=== PATIENT | female | born 1930 | race Caucasian/White ===

== ENCOUNTER → 2016-04-11 | Outpatient (CLI) | payer MEDICARE, OTHER ==
--- NOTE | 2016-04-11 10:56 | CT ---
Study: CT of the Lumbar Spine. Indication: INTERVERTEBRAL DISC DISPLACEMENT Technique: Axial CT images of the lumbar spine acquired without intravenous contrast. Coronal and sagittal reformats performed. Comparison: None. Findings: Lumbar vertebral body height maintained without acute fracture. Levoscoliosis centered at L3-L4. Level by level analysis as follows: L1-L2: Mild to moderate right lateral disc space height loss with trace right lateral listhesis L1 on L2. 4 mm left eccentric disc osteophyte complex with moderate right and mild left facet arthrosis. Indentation ventral thecal sac with mild spinal canal narrowing, mid sagittal thecal sac diameter 9 mm. Mild bilateral lateral recess narrowing, right greater than left. Moderate bilateral neural foraminal narrowing. L2-L3: Severe right lateral disc space height loss with trace right lateral listhesis L2 on L3. 5 mm disc osteophyte complex. Severe right and moderate left facet arthrosis. Indentation ventral thecal sac with mild spinal canal narrowing, mid sagittal thecal sac diameter 9 mm. Moderate bilateral recess narrowing. Moderate bilateral neural foraminal narrowing, left greater than right. L3-L4: Severe right lateral disc space height loss with ex vacuo disc phenomenon and grade 1 left lateral listhesis of L3 on L4. Significant right lateral endplate sclerosis. Grade 1 degenerative anterolisthesis severe bilateral facet arthrosis. 7 mm disc uncovering/ osteophyte complex with severe right and moderate to severe left neural foraminal narrowing. Moderate ligament flavum buckling. Severe spinal canal narrowing, mid sagittal thecal sac diameter 4.4 mm. L4-L5: Mild to moderate disc space height loss with partial ossification of the disc. Trace anterolisthesis. Severe bilateral facet arthrosis. Moderate ligament flavum buckling. 4 mm disc osteophyte complex. Mild to moderate spinal canal narrowing, mid sagittal thecal sac diameter 7.5 mm. Moderate bilateral neural foraminal narrowing. L5-S1: Severe left lateral disc space height loss and ex vacuo disc phenomenon with a 5.5 mm left eccentric disc osteophyte complex. Severe bilateral facet arthrosis. Moderate to severe left and mild right neural foraminal narrowing. Indentation ventral thecal sac without spinal canal narrowing. Atherosclerosis aorta. IVC filter noted. Impression: Pronounced multilevel lumbar disc disease with changes most pronounced at L3-L4 where there is severe spinal canal narrowing in addition to severe right and moderate to severe left neural foraminal narrowing. Additional findings as above. Electronically signed by: Garry Reeder MD 04/11/2016 10:54
== END ==
LOC: CT 10:18
PROVIDERS: ATTEND Family Medicine
DX: M51.27 Other intervertebral disc displacement, lumbosacral region (principal)

== ENCOUNTER 2016-08-08 10:26 | Emergency (ER) | payer MEDICARE, OTHER ==
[2016-08-08 11:07] VITALS: BP 130/74; TEMP 98; O2SAT 98
[2016-08-08] MEDS ORDERED: IPRATROPIUM/ALBUTEROL 3 ML VIAL NEB ONE (11:23)
--- NOTE | 2016-08-08 11:36 | RAD ---
EXAM DESCRIPTION: Chest,2 Views CLINICAL HISTORY: 85 years,Female,cough diaphoresis COMPARISON: July 10, 2015 FINDINGS: There are no consolidations. No effusions. No pneumothoraces. No nodules. Bony elements unremarkable for age. Surgical clips right upper quadrant and an IVC filter seen IMPRESSION: Unremarkable chest for age stable Electronically signed by: Marco Gleason MD 08/08/2016 11:36 AM CDT
--- NOTE | 2016-08-08 11:44 | ED.PDOC ---
History of Present Illness - General Chief Complaint: Respiratory Problem Stated Complaint: shortness of breath and sweats for x 1 week Time Seen by Provider: 08/08/16 10:40 Source: patient Exam Limitations: no limitations - History of Present Illness Initial Comments: the patient is an 85-year-old female presenting to the emergency room secondary to cough and mild shortness of breath for the last week.. The patient has had a productive sputum. no chest pain. the patient has already completeda course of azithromycin. she has had 3 nights of diaphoresis Timing/Duration: 1 week Severity: moderate Improving Factors: nothing Worsening Factors: nothing Associated Symptoms: cough, fever/chills Allergies/Adverse Reactions: Allergies Codeine Allergy (Intermediate, Verified 08/08/16 11:04) Penicillins Allergy (Intermediate, Verified 08/08/16 11:04) Hives Home Medications: Ambulatory Orders Ascorbic Acid [Vitamin C] 1,000 mg PO DAILY 07/10/15 Aspirin [Aspirin EC] 81 mg PO DAILY 07/10/15 Cholecalciferol [Vitamin D] 1,000 unit PO DAILY 07/10/15 Magnesium 500 mg PO DAILY 07/10/15 Potassium Chloride [Micro-K] 10 meq PO DAILYBK 07/10/15 Triamcinolone 0.1% Oint [Kenalog 0.1% Ointment] 1 applic TOP BID 07/10/15 Triamterene & Hydrochlorothiaz [Triamterene/Hydrochloroth 37.5-25 mg] 0.5 tab PO DAILY 07/10/15 Nitrofurantoin Monohydrate Mac [Macrobid] 100 mg PO BID #12 cap 07/13/15 Rivaroxaban [Xarelto] 15 mg PO BID #40 tab 07/13/15 levoFLOXacin [Levaquin] 500 mg PO DAILY #5 tab 08/08/16 predniSONE [Prednisone] 20 mg PO DAILY #3 tab 08/08/16 Review of Systems - Review of Systems Constitutional: States: fever, malaise EENTM: States: no symptoms reported Respiratory: States: cough, short of breath - mild Cardiology: States: no symptoms reported Gastrointestinal/Abdominal: States: no symptoms reported Genitourinary: States: no symptoms reported Musculoskeletal: States: no symptoms reported Skin: States: no symptoms reported Neurological: States: no symptoms reported Endocrine: States: excessive sweating All other Systems: No Change from Baseline Past Medical History (General) - Patient Medical History Hx Seizures: No Hx Stroke: No Hx Dementia: No Hx Asthma: No Hx of COPD: No Hx Cardiac Disorders: Yes Hx Congestive Heart Failure: Yes Hx Pacemaker: No Hx Hypertension: Yes Hx Thyroid Disease: No Hx Diabetes: No Hx Gastroesophageal Reflux: No Hx Renal Disease: No Hx Cancer: No Hx of HIV: No Hx Hepatitis C: No Hx MRSA: No - Vaccination History Hx Tetanus, Diphtheria Vaccination: Yes Hx Influenza Vaccination: Yes Hx Pneumococcal Vaccination: Yes Immunizations Up to Date: Yes - Social History Hx Tobacco Use: No Hx Chewing Tobacco Use: No Hx Alcohol Use: No Hx Substance Use: No Hx Substance Use Treatment: No Hx Depression: No Feels Threatened In Home Enviroment: No Feels Threatened In a Relationship: No Hx Physical Abuse: No Hx Emotional Abuse: No Hx Suspected Abuse: No - Activities of Daily Living Hospice Agency (if applicable):: None - Female History Patient is a Female of Child Bearing Age (10 -59 yrs old): No Patient : No Family Medical History - Family History Mother Family History: No Known Living Status: Father Family History: No Known Living Status: Physical Exam - Physical Exam General Appearance: Alert, Comfortable, No apparent distress Eye Exam: bilateral normal Ears, Nose, Throat: hearing grossly normal, normal ENT inspection, normal pharynx Neck: non-tender, full range of motion, supple, normal inspection Respiratory: chest non-tender, no respiratory distress, no accessory muscle use , rhonchi - coarse bilaterally Cardiovascular/Chest: normal peripheral pulses, regular rate, rhythm, no edema Peripheral Pulses: radial,right: 2+, radial,left: 2+, dorsalis pedis,right: 2+, dorsalis pedis,left: 2+ Gastrointestinal/Abdominal: non tender, soft Rectal Exam: deferred Back Exam: normal inspection, no CVA tenderness, no vertebral tenderness Extremity: normal range of motion, non-tender, normal inspection, no pedal edema , normal capillary refill Neurologic: alert, normal mood/affect, oriented x 3 Skin Exam: normal color Comments: Vital Signs - 24 hr 08/08/16 08/08/16 11:04 11:07 Temperature 98 F Pulse Rate [ 74 Left Radial] Respiratory 20 20 Rate Blood Pressure 130/74 [Left Arm] O2 Sat by Pulse 98 Oximetry Progress - Progress Progress: 08/08/16 11:46 the patient is a 85-year-old female presenting with what is most consistent with a persistent bronchitis. She has completed a course of azithromycin. Chest x-ray and lab work are reassuring. She is oxygenating well and not in respiratory distress. She will be placed on oral prednisone for 3 days and Levaquin for 5 days. She needs to follow-up with her primary care doctor later this week. ER warnings are given for any worsening. - Results/Orders Results/Orders: Laboratory Tests 08/08/16 08/08/16 08/08/16 11:00 11:00 11:00 WBC 5.0 RBC 4.60 Hgb 14.4 Hct 43.4 MCV 94.4 MCH 31.4 H MCHC 33.2 RDW 13.3 Plt Count 210 MPV 8.1 Absolute Neuts (auto) 2.50 Absolute Lymphs (auto) 1.80 Absolute Monos (auto) 0.50 Absolute Eos (auto) 0.20 Absolute Basos (auto) 0.00 Neutrophils % 50.7 Lymphocytes % 35.2 Monocytes % 9.4 H Eosinophils % 4.2 Basophils % 0.5 D-Dimer, Quantitative < 230 Sodium 140 Potassium 3.8 Chloride 109 Carbon Dioxide 25 Anion Gap 9.8 L BUN 31 H Creatinine 1.16 BUN/Creatinine Ratio 26.7 H Random Glucose 104 Serum Osmolality 286.2 Calcium 9.5 Total Bilirubin 0.7 AST 18 ALT 12 Alkaline Phosphatase 61 Creatine Kinase 88 CK-MB (CK-2) 0.9 CK-MB (CK-2) % Not Reportable Troponin I < 0.02 B-Natriuretic Peptide 24.5 Serum Total Protein 7.0 Albumin 3.8 Globulin 3.2 Albumin/Globulin Ratio 1.2 chest x-ray appears benign. EKG shows normal sinus rhythm. No acute ST segment changes concerning for ischemia. No definitive QT prolongation. Departure - Departure Clinical Impression: Bronchitis Disposition: Discharge to Home or Self Care Condition: Fair Departure Forms: ED Discharge - Pt. Copy, Patient Portal Self Enrollment Instructions: DI for Acute Bronchitis Diet: regular diet Activity: increase activity as tolerated Referrals: Angel Contreras MD [Primary Care Provider] - 1-5 Days Prescriptions: levoFLOXacin [Levaquin] 500 mg PO DAILY #5 tab predniSONE [Prednisone] 20 mg PO DAILY #3 tab Home Medications: Ambulatory Orders Ascorbic Acid [Vitamin C] 1,000 mg PO DAILY 07/10/15 Aspirin [Aspirin EC] 81 mg PO DAILY 07/10/15 Cholecalciferol [Vitamin D] 1,000 unit PO DAILY 07/10/15 Magnesium 500 mg PO DAILY 07/10/15 Potassium Chloride [Micro-K] 10 meq PO DAILYBK 07/10/15 Triamcinolone 0.1% Oint [Kenalog 0.1% Ointment] 1 applic TOP BID 07/10/15 Triamterene & Hydrochlorothiaz [Triamterene/Hydrochloroth 37.5-25 mg] 0.5 tab PO DAILY 07/10/15 Nitrofurantoin Monohydrate Mac [Macrobid] 100 mg PO BID #12 cap 07/13/15 Rivaroxaban [Xarelto] 15 mg PO BID #40 tab 07/13/15 levoFLOXacin [Levaquin] 500 mg PO DAILY #5 tab 08/08/16 predniSONE [Prednisone] 20 mg PO DAILY #3 tab 08/08/16 Additional Instructions: the patient is a 85-year-old female presenting with what is most consistent with a persistent bronchitis. She has completed a course of azithromycin. Chest x-ray and lab work are reassuring. She is oxygenating well and not in respiratory distress. She will be placed on oral prednisone for 3 days and Levaquin for 5 days. She needs to follow-up with her primary care doctor later this week. Obviously, if she is not improving, then additional workup may be warranted. Blood culture was performed today. ER warnings are given for any worsening.
== END 2016-08-08 12:00 | disposition home or self-care (01) ==
LOC: ER 10:26
DX: J40 Bronchitis, not specified as acute or chronic (principal); I11.0 Hypertensive heart disease with heart failure; I50.9 Heart failure, unspecified; Z88.6 Allergy status to analgesic agent; Z88.0 Allergy status to penicillin; Z79.82 Long term (current) use of aspirin; Z79.899 Other long term (current) drug therapy
CPT/HCPCS: 36415; 71020; 80053; 82550; 82553; 83880; 84484; 85025; 85379; 87040; 87502; 93005; 94640; J7620

== ENCOUNTER 2016-08-21 15:48 | Emergency (ER) | payer MEDICARE, OTHER ==
[2016-08-21 16:07] VITALS: O2SAT 94
--- NOTE | 2016-08-21 16:24 | ED.PDOC ---
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 Denies LOC. She twisted her foot and is having pain, swelling and bruising of her L foot. Her R hip and shoulder are sore and she has a bruise on her R wrist but is mostly concerned with her foot. She can't put any weight on it. Occurred: this morning - @ 07:30 Pain - Lower Extremity: moderate: Right Foot Method of Injury: fell, twisted Improving Factors: rest Worsening Factors: movement - weight bearing Allergies/Adverse Reactions: Allergies Codeine Allergy (Intermediate, Verified 08/08/16 11:04) Penicillins Allergy (Intermediate, Verified 08/08/16 11:04) Hives Home Medications: Ambulatory Orders Ascorbic Acid [Vitamin C] 1,000 mg PO DAILY 07/10/15 Aspirin [Aspirin EC] 81 mg PO DAILY 07/10/15 Cholecalciferol [Vitamin D] 1,000 unit PO DAILY 07/10/15 Magnesium 500 mg PO DAILY 07/10/15 Potassium Chloride [Micro-K] 10 meq PO DAILYBK 07/10/15 Triamcinolone 0.1% Oint [Kenalog 0.1% Ointment] 1 applic TOP BID 07/10/15 Triamterene & Hydrochlorothiaz [Triamterene/Hydrochloroth 37.5-25 mg] 0.5 tab PO DAILY 07/10/15 Nitrofurantoin Monohydrate Mac [Macrobid] 100 mg PO BID #12 cap 07/13/15 Rivaroxaban [Xarelto] 15 mg PO BID #40 tab 07/13/15 levoFLOXacin [Levaquin] 500 mg PO DAILY #5 tab 08/08/16 predniSONE [Prednisone] 20 mg PO DAILY #3 tab 08/08/16 Review of Systems - Review of Systems Constitutional: States: no symptoms reported EENTM: States: no symptoms reported Respiratory: States: no symptoms reported Cardiology: States: no symptoms reported Gastrointestinal/Abdominal: States: no symptoms reported Musculoskeletal: States: joint pain - R foot, joint swelling - R foot, other - L thigh/lateral hip soreness Skin: States: other - Bruising R wrist and foot Neurological: States: no symptoms reported. Denies: numbness, paresthesia, tingling, weakness All other Systems: No Change from Baseline Past Medical History (General) - Patient Medical History Hx Seizures: No Hx Stroke: No Hx Dementia: No Hx Asthma: No Hx of COPD: No Hx Cardiac Disorders: Yes Hx Congestive Heart Failure: Yes Hx Pacemaker: No Hx Hypertension: Yes Hx Thyroid Disease: No Hx Diabetes: No Hx Gastroesophageal Reflux: No Hx Renal Disease: No Hx Cancer: No Hx of HIV: No Hx Hepatitis C: No Hx MRSA: No - Vaccination History Hx Tetanus, Diphtheria Vaccination: Yes Hx Influenza Vaccination: Yes Hx Pneumococcal Vaccination: Yes - Social History Hx Tobacco Use: No Hx Chewing Tobacco Use: No Hx Alcohol Use: No Hx Substance Use: No Hx Substance Use Treatment: No Hx Depression: No Hx Physical Abuse: No Hx Emotional Abuse: No Hx Suspected Abuse: No - Female History Patient : No Family Medical History - Family History Mother Family History: No Known Living Status: Father Family History: No Known Living Status: Physical Exam - Physical Exam General Appearance: Alert, Comfortable, No apparent distress, Well Developed, Well Groomed, Well Hydrated, Well Nourished Neck: non-tender, supple, normal inspection Cardiovascular/Respiratory: regular rate, rhythm, no M/R/G, normal breath sounds , no respiratory distress Thigh/Hip: soft tissue tenderness - R lateral thigh, no bernice tenderness Leg: non-tender, no evidence of injury Knee: non-tender, no evidence of injury Ankle: normal inspection, non-tender, no evidence of injury Foot: bone tenderness - R foot, ecchymosis - Dorsum of R foot - distal, lateral , soft tissue tenderness - R foot, swelling - Dorsum of R foot Neuro/Tendon: normal sensation, normal motor functions, normal tendon functions Mental Status: alert, oriented x 3 Skin: normal color, warm/dry Comments: Vital Signs - 24 hr 08/21/ 16:05 Temperature 98.4 F Pulse Rate [ 60 Left Radial] Respiratory 18 Rate Blood Pressure 138/75 [Left Arm] O2 Sat by Pulse 94 L Oximetry Progress - EKG/XRAY/CT XRAY: R foot: mildly displaced fx of distal 5th metatarsal. Procedures - Splinting Right Foot Pre-Made Type: Orthoboot Pre-Proc Neuro Vasc Exam: normal Post-Proc Neuro Vasc Exam: normal Departure - Departure Clinical Impression: Fracture of metatarsal of right foot, closed Qualifiers: Encounter type: initial encounter Metatarsal bone: fifth Fracture alignment: displaced Qualified Code(s): S92.351A - Displaced fracture of fifth metatarsal bone, right foot, initial encounter for closed fracture Time of Disposition: 17:23 Disposition: Discharge to Home or Self Care Condition: Good Departure Forms: ED Discharge - Pt. Copy, Patient Portal Self Enrollment Instructions: DI for Foot Fracture Diet: resume usual diet Activity: increase activity as tolerated Referrals: Angel Contreras MD [Primary Care Provider] - 1-5 Days Home Medications: Ambulatory Orders Ascorbic Acid [Vitamin C] 1,000 mg PO DAILY 07/10/15 Aspirin [Aspirin EC] 81 mg PO DAILY 07/10/15 Cholecalciferol [Vitamin D] 1,000 unit PO DAILY 07/10/15 Magnesium 500 mg PO DAILY 07/10/15 Potassium Chloride [Micro-K] 10 meq PO DAILYBK 07/10/15 Triamcinolone 0.1% Oint [Kenalog 0.1% Ointment] 1 applic TOP BID 07/10/15 Triamterene & Hydrochlorothiaz [Triamterene/Hydrochloroth 37.5-25 mg] 0.5 tab PO DAILY 07/10/15 Nitrofurantoin Monohydrate Mac [Macrobid] 100 mg PO BID #12 cap 07/13/15 Rivaroxaban [Xarelto] 15 mg PO BID #40 tab 07/13/15 levoFLOXacin [Levaquin] 500 mg PO DAILY #5 tab 08/08/16 predniSONE [Prednisone] 20 mg PO DAILY #3 tab 08/08/16
--- NOTE | 2016-08-21 16:33 | RAD ---
EXAM: Foot,Right 3 Views CLINICAL INDICATION: 45-year-old female with swelling and pain. TECHNIQUE: Three views RIGHT foot were obtained in AP, lateral and oblique projections COMPARISON: None. FINDINGS: Mildly displaced comminuted fracture of the fifth digit distal metatarsal. The bones appear to be diffusely demineralized limiting assessment for subtle fracture. Hallux valgus deformity with adjacent ossification raising the question of sequela of prior injury or inflammatory arthropathy. Degenerative changes of the midfoot articulations. Adjacent fifth digit soft tissue swelling. IMPRESSION: Fracture of the fifth digit distal metatarsal as detailed above. Electronically signed by: Vanita Anderson MD 08/21/2016 4:32 PM CDT Workstation: [id number]
[2016-08-21 18:54] VITALS: BP 136/78; TEMP 98
== END 2016-08-21 18:15 | disposition home or self-care (01) ==
LOC: ER 15:48
DX: S92.351A Displaced fracture of fifth metatarsal bone, right foot, initial encounter for closed fracture (principal); I50.9 Heart failure, unspecified; I11.0 Hypertensive heart disease with heart failure; Z79.82 Long term (current) use of aspirin; Z79.899 Other long term (current) drug therapy; Z88.5 Allergy status to narcotic agent; Z88.0 Allergy status to penicillin; Y92.9 Unspecified place or not applicable; W18.39XA Other fall on same level, initial encounter

== ENCOUNTER → 2016-08-22 | Outpatient (CLI) | payer MEDICARE, OTHER | END | disposition home or self-care (01) | LOC: YCFC.O 08:30 | PROVIDERS: ATTEND Anesthesiology Pain Medicine | DX: Z79.891 Long term (current) use of opiate analgesic (principal) ==

== ENCOUNTER 2016-09-19 11:55 | Day surgery (SDC) | payer MEDICARE, OTHER ==
[~2016-09-19 11:55] MED LIST: LIDOCAINE 1% MPF 5 ML VIAL ONE; SODIUM CHLORIDE 0.9% 10 ML VIAL ONE; methylPREDNISolone ACETATE 80 MG/ML VIAL ONE
[2016-09-19] MEDS ORDERED: BUPIVACAINE 0.25% INJ 30 ML VIAL INJ ONE (13:45)
[2016-09-19 14:07] VITALS: BP 138/71; TEMP 97.1; O2SAT 97
== END 2016-09-19 14:05 | disposition home or self-care (01) ==
LOC: AMB 11:55
PROVIDERS: ATTEND Anesthesiology Pain Medicine
DX: M51.16 Intervertebral disc disorders with radiculopathy, lumbar region (principal); Z88.0 Allergy status to penicillin; Z79.899 Other long term (current) drug therapy
CPT/HCPCS: 64483; J1030

== ENCOUNTER → 2016-09-28 | Outpatient (CLI) | payer MEDICARE, OTHER | LOC: GMAJ 17:30 | PROVIDERS: ATTEND Family Medicine | DX: D51.3 Other dietary vitamin B12 deficiency anemia (principal) ==

== ENCOUNTER 2016-10-17 06:06 | Day surgery (SDC) | payer MEDICARE, OTHER ==
[2016-10-17] MEDS ORDERED: LIDOCAINE 1% MPF 5 ML VIAL ONE (11:31)
[2016-10-17] MEDS ORDERED: SODIUM CHLORIDE 0.9% 10 ML VIAL ONE (11:31)
[2016-10-17] MEDS ORDERED: methylPREDNISolone ACETATE 80 MG/ML VIAL ONE (11:31)
[2016-10-17] MEDS ORDERED: BUPIVACAINE 0.25% INJ 30 ML VIAL INJ ONE (12:43)
[2016-10-17 13:47] VITALS: BP 144/78; O2SAT 99
[2016-10-17 13:52] VITALS: TEMP 97.3
== END 2016-10-17 13:10 | disposition home or self-care (01) ==
LOC: AMB 06:06
PROVIDERS: ATTEND Anesthesiology Pain Medicine
DX: M51.16 Intervertebral disc disorders with radiculopathy, lumbar region (principal); M54.5 Low back pain; Z88.0 Allergy status to penicillin; Z79.899 Other long term (current) drug therapy
CPT/HCPCS: 64484; 76000; J1030

== ENCOUNTER → 2016-11-02 | Outpatient (CLI) | payer MEDICARE, OTHER | LOC: GMA 14:57 | PROVIDERS: ATTEND Physician Assistant | DX: N30.00 Acute cystitis without hematuria (principal) ==

== ENCOUNTER 2016-12-01 11:47 | Emergency (ER) | payer MEDICARE, OTHER ==
[2016-12-01 11:58] VITALS: TEMP 98
[2016-12-01] MEDS ORDERED: MORPHINE SULFATE INJ 10 MG/ML VIAL IV ONE (11:59)
[2016-12-01] MEDS ORDERED: ASPIRIN TABLET 325 MG TAB PO ONE (11:59)
[2016-12-01] MEDS ORDERED: ONDANSETRON ODT 8 MG TAB SL ONE (11:59)
--- NOTE | 2016-12-01 12:25 | RAD ---
EXAM DESCRIPTION: Chest,2 Views CLINICAL HISTORY: new onset left chest pain with sob COMPARISON: None FINDINGS: Frontal and lateral views of the thorax. Small bilateral pleural effusions are present with adjacent airspace opacity likely reflective of atelectasis. No acute volume occupying airspace disease process is demonstrated. Heart size upper limits of normal. Ectatic thoracic aorta with thoracic aortic calcifications noted. No acute mediastinal pathology is seen. Usual degenerative changes seen throughout the thoracic spine. IVC filter. Right upper quadrant surgical clips. IMPRESSION: Small pleural effusions with adjacent airspace disease likely reflective of atelectasis. Additional findings as above. Electronically signed by: Frank Guillen MD 12/01/2016 12:24 PM CDT
[2016-12-01] MEDS ORDERED: IPRATROPIUM/ALBUTEROL 3 ML VIAL NEB ONE (12:55)
--- NOTE | 2016-12-01 16:12 | ED.PDOC ---
History of Present Illness - General Chief Complaint: Chest Pain/[place] Stated Complaint: chest pain Time Seen by Provider: 12/01/16 11:50 Source: patient Exam Limitations: no limitations - History of Present Illness Initial Comments: The patient is an 86-year-old female presenting to the emergency room secondary to left-sided chest pain that started approximately 30 minutes to 1 hour prior to arrival. She was not doing anything particularly stressful. She had just sat down and the pain started. Pain is only present when she takes in a deep breath or twists or turns. When she exhales there is no pain. It is a sharp stabbing pulling type pain. She feels a little short of breath because she can' t take a deep breath due to the discomfort. No cough. No fever. No shortness of breath otherwise. No syncope. No palpitations. She denies any significant cardiac history.pain is to the anterior left chest wall. There is some tenderness to palpation over the area. No obvious bruising. No palpable mass. Timing/Duration: 1 hour Severity: moderate Improving Factors: nothing Worsening Factors: movement Associated Symptoms: denies symptoms Allergies/Adverse Reactions: Allergies Codeine Allergy (Intermediate, Verified 08/08/16 11:04) Penicillins Allergy (Intermediate, Verified 08/08/16 11:04) Hives Home Medications: Ambulatory Orders Cholecalciferol [Vitamin D] 1,000 unit PO DAILY 07/10/15 Magnesium 500 mg PO DAILY 07/10/15 Potassium Chloride [Micro-K] 10 meq PO DAILYBK 07/10/15 Triamterene & Hydrochlorothiaz [Triamterene/Hydrochloroth 37.5-25 mg] 0.5 tab PO DAILY 07/10/15 Fptrhdbbntjgo-Xzcu-Ebezykctwv [Fioricet] 1 ea PO Q8H PRN #21 tab 12/01/16 Tpcxqfhxucqvn-Jupw-Fnwwvorobm [Fioricet] 1 ea PO Q8H PRN #21 tab 12/01/16 Folic Acid-Vitamin B6-Vitamin [Folbee] 1 tab PO DAILY 12/01/16 Gabapentin 300 mg PO BEDTIME PRN 12/01/16 Rivaroxaban [Xarelto] 10 mg PO QD 12/01/16 Review of Systems - Review of Systems Constitutional: States: no symptoms reported EENTM: States: no symptoms reported Respiratory: States: short of breath Cardiology: States: chest pain Gastrointestinal/Abdominal: States: no symptoms reported Genitourinary: States: no symptoms reported Musculoskeletal: States: see HPI Skin: States: no symptoms reported Neurological: States: no symptoms reported Endocrine: States: no symptoms reported All other Systems: No Change from Baseline Past Medical History (General) - Patient Medical History Hx Seizures: No Hx Stroke: No Hx Dementia: No Hx Asthma: No Hx of COPD: No Hx Cardiac Disorders: Yes Hx Congestive Heart Failure: No Hx Pacemaker: No Hx Hypertension: Yes Hx Thyroid Disease: No Hx Diabetes: No Hx Gastroesophageal Reflux: Yes Hx Renal Disease: No Hx Cancer: Yes - Renal Hx of HIV: No Hx Hepatitis C: No Hx MRSA: No Surgical History: cholecystectomy, Hysterectomy - Vaccination History Hx Tetanus, Diphtheria Vaccination: Yes Hx Influenza Vaccination: No Hx Pneumococcal Vaccination: Yes - Social History Hx Tobacco Use: No Hx Chewing Tobacco Use: No Hx Alcohol Use: No Hx Substance Use: No Hx Substance Use Treatment: No Hx Depression: No Hx Physical Abuse: No Hx Emotional Abuse: No Hx Suspected Abuse: No - Female History Patient : No Family Medical History - Family History Mother Family History: No Known Living Status: Father Family History: No Known Living Status: Physical Exam - Physical Exam General Appearance: Alert, Comfortable, No apparent distress Eye Exam: bilateral normal Ears, Nose, Throat: hearing grossly normal, normal ENT inspection, normal pharynx Neck: non-tender, full range of motion, supple Respiratory: lungs clear, normal breath sounds, no respiratory distress, no accessory muscle use, other - chest wall tenderness as above Cardiovascular/Chest: normal peripheral pulses, regular rate, rhythm, no edema Peripheral Pulses: radial,right: 2+, radial,left: 2+, dorsalis pedis,right: 2+, dorsalis pedis,left: 2+ Gastrointestinal/Abdominal: non tender, soft Rectal Exam: deferred Back Exam: normal inspection, no CVA tenderness, no vertebral tenderness Extremity: normal range of motion, non-tender, normal inspection, no pedal edema , normal capillary refill 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, alert, normal mood/affect, oriented x 3 Skin Exam: normal color Comments: Vital Signs - 24 hr 12/01/16 12/01/16 12/01/16 11:53 12:43 12:48 Temperature 98 F Pulse Rate Pulse Rate [ 97 H 65 Left Brachial] Respiratory 20 20 20 Rate Blood Pressure 151/78 113/39 [Left Arm] O2 Sat by Pulse 96 95 Oximetry 12/01/16 12/01/16 12/01/16 13:00 14:00 14:59 Temperature Pulse Rate 66 Pulse Rate [ 65 63 64 Left Brachial] Respiratory 20 16 18 Rate Blood Pressure 113/62 115/54 114/61 [Left Arm] O2 Sat by Pulse 97 93 L 97 Oximetry Progress - Progress Progress: 12/01/16 16:15 the patient is an 86-year-old female presenting to the emergency room secondary to chest pain that appears to be most likely either musculoskeletal or pleuritic in nature. Lab work is reassuring. Repeat cardiac enzymes are negative. The patient can take Motrin for discomfort and will also be written for some Fioricet for as needed use. She needs to take big deep breaths. Her chest x-ray does show some atelectasis which needs to be followed. Additionally she does have some chronic EKG changes that should be followed up by shipyard helper as an outpatient in the near future. ER warnings were given. she should follow-up with her primary care doctor either tomorrow or Monday. 12/01/16 16:17 - Results/Orders Results/Orders: Laboratory Tests 12/01/16 12/01/16 12/01/16 12:05 12:05 12:05 WBC 7.3 RBC 4.58 Hgb 14.5 Hct 43.7 MCV 95.4 MCH 31.5 H MCHC 33.1 RDW 14.1 Plt Count 290 MPV 8.5 Absolute Neuts (auto) 4.60 Absolute Lymphs (auto) 1.80 Absolute Monos (auto) 0.50 Absolute Eos (auto) 0.40 Absolute Basos (auto) 0.00 Neutrophils % 62.7 Lymphocytes % 24.5 Monocytes % 7.3 Eosinophils % 4.8 Basophils % 0.7 PT 14.4 H INR 1.280 PTT (SP) 32.9 D-Dimer, Quantitative Sodium 140 Potassium 3.7 Chloride 107 Carbon Dioxide 24 Anion Gap 12.7 BUN 33 H Creatinine 1.14 BUN/Creatinine Ratio 28.9 H Random Glucose 167 H Serum Osmolality 290.5 Calcium 9.9 Magnesium 1.9 Total Bilirubin 0.7 AST 19 ALT 12 Alkaline Phosphatase 56 Creatine Kinase 75 CK-MB (CK-2) 0.8 CK-MB (CK-2) % Not Reportable Troponin I < 0.02 B-Natriuretic Peptide 29.3 Serum Total Protein 7.2 Albumin 3.8 Globulin 3.4 Albumin/Globulin Ratio 1.1 Amylase 55 Lipase 37 12/01/16 12/01/16 12:05 15:20 WBC RBC Hgb Hct MCV MCH MCHC RDW Plt Count MPV Absolute Neuts (auto) Absolute Lymphs (auto) Absolute Monos (auto) Absolute Eos (auto) Absolute Basos (auto) Neutrophils % Lymphocytes % Monocytes % Eosinophils % Basophils % PT INR PTT (SP) D-Dimer, Quantitative < 230 Sodium Potassium Chloride Carbon Dioxide Anion Gap BUN Creatinine BUN/Creatinine Ratio Random Glucose Serum Osmolality Calcium Magnesium Total Bilirubin AST ALT Alkaline Phosphatase Creatine Kinase 72 CK-MB (CK-2) 0.8 CK-MB (CK-2) % Not Reportable Troponin I < 0.02 B-Natriuretic Peptide Serum Total Protein Albumin Globulin Albumin/Globulin Ratio Amylase Lipase chest x-ray does show some atelectasis. Initial EKG shows a normal sinus rhythm at a heart rate of 88 bpm. QT interval is within normal limits. She does have Q waves in inferior leads and poor R- wave progression in anterior leads. There is a less than [address] segment depression in leads V4 and V5. Repeat EKG shows a slower heart rate 63 bpm. There is one PVC. QT interval was still within normal limits. Q waves are still present and poor R-wave progression is still present. No ST segment changes concerning for ischemia. Departure - Departure Clinical Impression: Chest pain, atypical Disposition: Discharge to Home or Self Care Condition: Fair Departure Forms: ED Discharge - Pt. Copy, Patient Portal Self Enrollment Instructions: DI for Atypical Chest Pain Diet: regular diet Activity: increase activity as tolerated Referrals: Angel Contreras MD [Primary Care Provider] - 1-2 Weeks Prescriptions: Iifnxtamaaiyh-Wqmb-Pirmapyrog [Fioricet] 1 ea PO Q8H PRN #21 tab PRN Reason: Pain Aqvdngoumoamc-Kcnv-Pjzigpugjy [Fioricet] 1 ea PO Q8H PRN #21 tab PRN Reason: Pain Home Medications: Ambulatory Orders Cholecalciferol [Vitamin D] 1,000 unit PO DAILY 07/10/15 Magnesium 500 mg PO DAILY 07/10/15 Potassium Chloride [Micro-K] 10 meq PO DAILYBK 07/10/15 Triamterene & Hydrochlorothiaz [Triamterene/Hydrochloroth 37.5-25 mg] 0.5 tab PO DAILY 07/10/15 Wroacgtjxmxkn-Qoks-Uwuzzlumhg [Fioricet] 1 ea PO Q8H PRN #21 tab 12/01/16 Dcdgowaiytfgq-Ymgy-Mcqdluwzhi [Fioricet] 1 ea PO Q8H PRN #21 tab 12/01/16 Folic Acid-Vitamin B6-Vitamin [Folbee] 1 tab PO DAILY 12/01/16 Gabapentin 300 mg PO BEDTIME PRN 12/01/16 Rivaroxaban [Xarelto] 10 mg PO QD 12/01/16 Additional Instructions: the patient is an 86-year-old female presenting to the emergency room secondary to chest pain that appears to be most likely either musculoskeletal or pleuritic in nature. Lab work is reassuring. Repeat cardiac enzymes are negative. The patient can take Motrin for discomfort and will also be written for some Fioricet for as needed use. She needs to take big deep breaths. Her chest x-ray does show some atelectasis which needs to be followed. Additionally she does have some chronic EKG changes that should be followed up by shipyard helper as an outpatient in the near future. ER warnings were given. she should follow-up with her primary care doctor either tomorrow or Monday.
[2016-12-01 16:54] VITALS: BP 113/54; O2SAT 94
== END 2016-12-01 16:54 | disposition home or self-care (01) ==
LOC: ER 11:47
DX: R07.89 Other chest pain (principal); I10 Essential (primary) hypertension; Z85.53 Personal history of malignant neoplasm of renal pelvis; Z88.6 Allergy status to analgesic agent; Z88.0 Allergy status to penicillin; Z79.899 Other long term (current) drug therapy
CPT/HCPCS: 36415; 71020; 80053; 82150; 82550; 82553; 83690; 83735; 83880; 84484; 85025; 85379; 85610; 85730; 93005; 94640; J2270; J7620

== ENCOUNTER 2016-12-19 05:00 | Day surgery (SDC) | payer MEDICARE, OTHER ==
[2016-12-19] MEDS ORDERED: SODIUM BICARBONATE VIAL 50 MEQ/50 ML VIAL ONE (10:52)
[2016-12-19] MEDS ORDERED: SODIUM CHLORIDE 0.9% 10 ML VIAL ONE (10:53)
[2016-12-19] MEDS ORDERED: LIDOCAINE 1% MPF 5 ML VIAL ONE (10:53)
[2016-12-19] MEDS ORDERED: methylPREDNISolone ACETATE 80 MG/ML VIAL ONE (10:53)
[2016-12-19] MEDS ORDERED: BUPIVACAINE 0.25% INJ 30 ML VIAL INJ ONE (11:17)
[2016-12-19 12:43] VITALS: BP 165/75; TEMP 97; O2SAT 97
== END 2016-12-19 12:40 | disposition home or self-care (01) ==
LOC: AMB 05:00
PROVIDERS: ATTEND Anesthesiology Pain Medicine
DX: M51.16 Intervertebral disc disorders with radiculopathy, lumbar region (principal); M46.96 Unspecified inflammatory spondylopathy, lumbar region; M54.5 Low back pain; Z88.0 Allergy status to penicillin; Z79.01 Long term (current) use of anticoagulants; Z79.899 Other long term (current) drug therapy
CPT/HCPCS: 62323; 76000; J1030

== ENCOUNTER → 2017-03-16 | Outpatient (CLI) | payer MEDICARE, OTHER | END | disposition home or self-care (01) | LOC: GMAJ 13:00 | PROVIDERS: ATTEND Family Medicine | DX: R06.02 Shortness of breath (principal) ==

== ENCOUNTER → 2017-08-08 | Outpatient (CLI) | payer MEDICARE, OTHER | LOC: GMAJ 11:23 | PROVIDERS: ATTEND Family Medicine | DX: R27.0 Ataxia, unspecified (principal); R29.818 Other symptoms and signs involving the nervous system; D51.3 Other dietary vitamin B12 deficiency anemia; R41.81 Age-related cognitive decline; R27.8 Other lack of coordination; Z79.899 Other long term (current) drug therapy ==

== ENCOUNTER → 2017-08-22 | Outpatient (CLI) | payer MEDICARE, OTHER ==
--- NOTE | 2017-08-22 14:46 | MRI ---
EXAM DESCRIPTION: Brain w/oContrast CLINICAL HISTORY: MEMORY LOSS COMPARISON: None available TECHNIQUE: Non contrast MRI of the brain is performed according to our usual protocol including multiplanar multi sequence technique. FINDINGS: Sagittal T1 images show intact corpus callosum. Normal pituitary gland with normal T1 appearance of the diane and medulla and upper cervical cord. Normal signal intensity within the clivus and calvarium. Axial T2 fat sat images reveal preservation of intracranial vascular flow voids. Patchy areas of increased T2 signal intensity within the white matter consistent with chronic microvascular ischemic changes. Prominent ventricles and sulci are consistent with age-related cerebral volume loss. The globes appear intact and symmetrical. No abnormal fluid signal in the paranasal sinuses, tympanic cavities or mastoid air cells. Axial flair images show extensive hyperintensities within the periventricular white matter as well as the subcortical and central white matter of both cerebral hemispheres. Findings are consistent with chronic microvascular ischemic changes related to aging, diabetes or hypertension.. Diffusion weighted images are negative for focal intense increased signal intensity in the brain parenchyma to suggest restricted diffusion. ADC mapping is negative. Axial T1 images show normal sam-white matter differentiation. No high signal intensity hemorrhagic lesion of the brain parenchyma. No subdural hematoma. Axial susceptibility weighted images are negative for focal signal loss to suggest abnormal brain parenchymal calcification or hemosiderin deposition, other than mild changes in the basal ganglia which are common. 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 No acute intracranial pathologic process. Electronically signed by: Frank Cheatham MD 08/22/2017 2:44 PM CDT
== END ==
LOC: MRI 14:00
PROVIDERS: ATTEND Family Medicine
DX: R41.81 Age-related cognitive decline (principal)

== ENCOUNTER → 2017-10-24 | Outpatient (CLI) | payer MEDICARE, OTHER | LOC: GMAJ 16:49 | PROVIDERS: ATTEND Nurse Practitioner Family | DX: E53.8 Deficiency of other specified B group vitamins (principal) ==

== ENCOUNTER → 2017-11-02 | Outpatient (CLI) | payer MEDICARE, OTHER | LOC: BFHH 11:35 | PROVIDERS: ATTEND Family Medicine | DX: R35.0 Frequency of micturition (principal) ==

== ENCOUNTER 2017-11-12 10:11 | Observation (INO) | payer MEDICARE, OTHER ==
--- NOTE | 2017-11-12 11:13 | ED.PDOC ---
History of Present Illness - General Chief Complaint: Syncope/Near Syncope Stated Complaint: Dizziness, nausea after fall Time Seen by Provider: 11/12/17 10:59 Source: patient Exam Limitations: no limitations - History of Present Illness Initial Comments: Vero Garcia 87 y/o female stated that she had 3 episode of N/V to day at home then went to the bathroom after coming out from the bathroom felt so dizzy wobbled was unsteady and fell hitting head on the tub had sharp pain back of head radiating to neck.No LOC remembers incident.no blurry vision,no chest pains ,no tinnitus or hearing loss. Timing/Prior Episodes: no prior history, single episode today Precipitating Factors: none Context: standing Episode Description: see hpi Loss of Consciousness: no loss of consciousness Current Symptoms: back to normal Allergies/Adverse Reactions: Allergies Codeine Allergy (Intermediate, Verified 08/08/16 11:04) Penicillins Allergy (Intermediate, Verified 08/08/16 11:04) Hives Home Medications: Ambulatory Orders Potassium Chloride [Micro-K] 10 meq PO DAILYBK 07/10/15 Triamterene & Hydrochlorothiaz [Triamterene/Hydrochloroth 37.5-25 mg] 0.5 tab PO DAILY 07/10/15 Folic Acid-Vitamin B6-Vitamin [Folbee] 1 tab PO DAILY 12/01/16 Gabapentin 300 mg PO BEDTIME PRN 12/01/16 Cholecalciferol [D 2000] 2,000 unit PO DAILY 11/12/17 Loperamide HCl 1 mg PO DAILY 11/12/17 Magnesium [Magnesium 250 mg] 1 tab PO DAILY 11/12/17 Rivaroxaban [Xarelto] 20 mg PO DAILY 11/12/17 Review of Systems - Review of Systems Constitutional: States: no symptoms reported EENTM: States: no symptoms reported Respiratory: States: no symptoms reported Cardiology: States: no symptoms reported Gastrointestinal/Abdominal: States: see HPI Musculoskeletal: States: no symptoms reported Skin: States: no symptoms reported Endocrine: States: see HPI Past Medical History (General) - Patient Medical History Hx Seizures: No Hx Stroke: No Hx Dementia: No Hx Asthma: No Hx of COPD: No Hx Cardiac Disorders: Yes - Hx DVT Hx Congestive Heart Failure: No Hx Pacemaker: No Hx Hypertension: Yes Hx Thyroid Disease: No Hx Diabetes: No Hx Gastroesophageal Reflux: Yes Hx Renal Disease: No Hx Cancer: Yes - right kidney Hx of HIV: No Hx Hepatitis C: No Hx MRSA: No Surgical History: cholecystectomy, other - nephrectomy,venacava filter,neck - Vaccination History Hx Tetanus, Diphtheria Vaccination: No Hx Influenza Vaccination: No Hx Pneumococcal Vaccination: No - Social History Hx Tobacco Use: No Hx Chewing Tobacco Use: No Hx Alcohol Use: No Hx Substance Use: No Hx Substance Use Treatment: No Hx Depression: No Hx Physical Abuse: No Hx Emotional Abuse: No Hx Suspected Abuse: No - Female History Patient : No Physical Exam - Physical Exam General Appearance: Alert, Comfortable, No apparent distress, Other - speech fluent Eyes, Ears, Nose, Throat Exam: PERRL/EOMI, normal ENT inspection, TMs normal, pharynx normal Neck: non-tender, full range of motion, supple, normal inspection Cardiovascular/Respiratory: regular rate, rhythm, no M/R/G, normal peripheral pulses Gastrointestinal/Abdominal: normal bowel sounds, non tender, soft, no organomegaly Back Exam: no CVA tenderness, no vertebral tenderness Extremity: normal range of motion, non-tender, no pedal edema, no calf tenderness Mental Status: alert, 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 Exam: normal hearing, normal speech, PERRL Coordination/Gait: normal finger to nose, normal gait Motor/Sensory: no motor deficit, no sensory deficit, no pronator drift, negative Babinski's sign Skin Exam: normal color Progress - Progress Progress: 11/12/17 13:25 Vital Signs - 8 hr 11/12/17 11/12/17 11/12/17 10:15 11:14 12:14 Temperature 97.5 F L Pulse Rate [ 51 L 55 L 51 L Apical] Respiratory 18 18 18 Rate Blood Pressure 162/72 135/69 135/69 [Right Arm] O2 Sat by Pulse 95 92 L 94 L Oximetry - Results/Orders Results/Orders: 11/12/17 11:00 IV Care:Saline Lock per Protoc QSHIFT URINALYSIS Stat 11/12/17 11:15 EKG STAT 11/12/17 12:15 CTA Chest [CT] Stat Laboratory Results - last 24 hr 11/12/17 11/12/17 11/12/17 11:05 11:05 11:13 WBC 7.1 RBC 4.28 Hgb 13.5 Hct 40.3 MCV 94.1 MCH 31.5 H MCHC 33.5 RDW 13.8 Plt Count 222 MPV 9.4 Absolute Neuts (auto) 5.60 Absolute Lymphs (auto) 0.90 L Absolute Monos (auto) 0.40 Absolute Eos (auto) 0.10 Absolute Basos (auto) 0.00 Neutrophils % 78.8 H Lymphocytes % 12.9 L Monocytes % 5.8 Eosinophils % 2.1 Basophils % 0.4 PT 10.6 INR 1.06 PTT (SP) 24.1 D-Dimer, Quantitative 0.51 H* Sodium 140 Potassium 4.2 Chloride 108 Carbon Dioxide 22 Anion Gap 14.2 BUN 34 H Creatinine 1.10 BUN/Creatinine Ratio 30.9 H Random Glucose 126 H Serum Osmolality 288.5 Calcium 10.3 H Magnesium 2.0 Total Bilirubin 0.7 Direct Bilirubin 0.1 Indirect Bilirubin 0.6 AST 20 ALT 13 Alkaline Phosphatase 54 Creatine Kinase 98 CK-MB (CK-2) 0.9 CK-MB (CK-2) % Not Reportable Troponin I < 0.02 B-Natriuretic Peptide 63.9 Serum Total Protein 6.8 Albumin 3.8 Lipase 39 - EKG/XRAY/CT EKG: Roderick, Sinus, nonspecific ST T wave Chg Comments: HR-54 Departure - Departure Clinical Impression: Fall from bed, initial encounter, Near syncope, Dizziness and giddiness, Anticoagulant long-term use, Sinus bradycardia by electrocardiogram Contusion of head Qualifiers: Encounter type: initial encounter Contusion of head detail: unspecified part of head Qualified Code(s): S00.93XA - Contusion of unspecified part of head, initial encounter Time of Disposition: 15:20 Disposition: Admit Patient Condition: Fair Departure Forms: Patient Portal Self Enrollment Referrals: Angel Contreras MD [Primary Care Provider] - 1-2 Weeks Home Medications: Ambulatory Orders Potassium Chloride [Micro-K] 10 meq PO DAILYBK 07/10/15 Triamterene & Hydrochlorothiaz [Triamterene/Hydrochloroth 37.5-25 mg] 0.5 tab PO DAILY 07/10/15 Folic Acid-Vitamin B6-Vitamin [Folbee] 1 tab PO DAILY 12/01/16 Gabapentin 300 mg PO BEDTIME PRN 12/01/16 Cholecalciferol [D 2000] 2,000 unit PO DAILY 09/16/18 Loperamide HCl 1 mg PO DAILY 11/12/17 Magnesium [Magnesium 250 mg] 1 tab PO DAILY 11/12/17 Rivaroxaban [Xarelto] 20 mg PO DAILY 11/12/17 Decision To Admit - Decistion To Admit Decision to Admit Reason: Admit from ER Decision to Admit Date: 11/12/17 - D/W Echo Henriquez-ANP/Hospitalist Decision to Admit Time: 15:19
--- NOTE | 2017-11-12 12:26 | CT ---
PROCEDURE: Head HISTORY: pain Indication: Same as above Comparison: 08/22/2017 Technique: CT of the head was done without intravenous contrast was done in the orthogonal planes. This exam was performed according to our departmental dose-optimization program, which includes automated exposure control, adjustment of the mA and/or KV according to the patient's size and/or use of iterative reconstruction technique. FINDINGS: There is no intracranial hemorrhage, midline shift mass effect or acute focal infarct. There is prominence of the sylvian fissures and the cortical sulci reflecting age related volume loss. There is periventricular and deep white matter low attenuation, most likely related to small vessel white matter ischemic disease. Intracranial atherosclerotic vascular wall calcifications are seen. If clinical concern exists regarding an acute ischemic/vascular pathology being responsible for patient's symptomatology, an MRI of the brain is more sensitive than the current study, in ruling out such a possibility. There is good sam/white matter differentiation. The ventricular system is normal. The mastoid air cells are unremarkable . The paranasal sinuses are unremarkable . There is no visualization of acute fractures involving the calvarium or the skull base. IMPRESSION: There is no acute intracranial abnormality. Age related and chronic involutional changes are seen. Electronically signed by: Teto Friedman MD 11/12/2017 12:25 PM CDT Workstation: [id number]
--- NOTE | 2017-11-12 12:29 | CT ---
PROCEDURE: Cervical Spine HISTORY: pain Indication: Same as above Comparison: None Technique: CT of the cervical spine was done without intravenous contrast, including axial, sagittal and coronal reconstructions. This exam was performed according to our departmental dose-optimization program, which includes automated exposure control, adjustment of the mA and/or KV according to the patient's size and/or use of iterative reconstruction technique. FINDINGS: There is no CT evidence of acute cervical spinal fractures or dislocations. The craniovertebral junction appears unremarkable. There is extensive degenerative change in the cervical spine. Significant reduction in the intervertebral disc space heights from C4/C5 through C6/C7 levels. Anterior and posterior osteophyte formation is seen at almost all the levels in the cervical spine. There is mild spinal canal stenosis at C4/C5 and C5/C6 levels. Multilevel facet arthropathy is also seen There is limited evaluation for acute or chronic intervertebral disc herniations or protrusions given the limitation of lack of intrathecal contrast. The prevertebral and the paravertebral soft tissues appear unremarkable. There is no gross evidence of epidural hematoma or paraspinal soft tissue fluid collections. The remainder of the visualized surrounding subcutaneous soft tissues and muscle structures are grossly unremarkable. The visualized airway appears unremarkable. The visualized lung apices is unremarkable . The sagittal reconstructed images demonstrate normal alignment The coronal reconstructed images demonstrate normal alignment. IMPRESSION: Negative for acute cervical spine bony trauma. Significant degenerative changes seen in the cervical spine, as described above Electronically signed by: Teto Friedman MD 11/12/2017 12:28 PM CDT Workstation: [id number]
--- NOTE | 2017-11-12 12:31 | RAD ---
PROCEDURE: Abdomen 1 View Clinical History: fall Indication: Same as above Comparison: None Technique: Single supine view of the abdomen and pelvis. Findings: There is no gross evidence of free air in the abdomen or the pelvis on this single supine view of the abdomen and pelvis. The small and large bowel gas pattern does not show any evidence of obstruction, ileus or bowel wall thickening. There is no visualization of radiopaque calculi in the outline of the urinary tract. There is presence of an IVC filter. Atherosclerotic changes in the abdominal aorta are noted There is no significant constipation. Extensive degenerative changes seen in the lumbar spine, without any gross evidence of acute bony trauma. The evaluated pelvic bones are unremarkable. Impression: There are no acute findings in the abdomen or the pelvis Location of Interpretation: [id number] Electronically signed by: Teto Friedman MD 11/12/2017 12:30 PM CDT Workstation: [id number]
--- NOTE | 2017-11-12 12:32 | RAD ---
PROCEDURE: XR CHEST 1 VIEW HISTORY: fall COMPARISON: 12/01/2016 TECHNIQUE: Single projection of the chest was done. FINDINGS: There is no gross evidence of acute thoracic bony trauma . There are no discrete airspace infiltrates, pneumothoraces or pleural effusions. The pulmonary vascularity is normal. The cardiomediastinal silhouette is unremarkable for patient's age and sex. IMPRESSION: There is no acute pleural-parenchymal process seen in the imaged lung [place]. Location of Interpretation: [facility] Electronically signed by: Teto Friedman MD 11/12/2017 12:30 PM CDT Workstation: [id number]
--- NOTE | 2017-11-12 14:09 | CT ---
PROCEDURE: CTA Chest HISTORY: syncopal episode/elevated d- dimer Indication: Same as above Comparison: CT of the abdomen and pelvis done on 10/13/2017 Technique: CT of the chest was done with intravenous contrast followed by CT angiography of the pulmonary arteries. Coronal, Sagittal and 3D volumetric MIP reconstructions were generated from the acquired data. The patient was injected with radiographic contrast intravenously, without any documented immediate adverse reactions. This exam was performed according to our departmental dose-optimization program, which includes automated exposure control, adjustment of the mA and/or KV according to the patient's size and/or use of iterative reconstruction technique. FINDINGS: There is no visualization of filling defects in the main pulmonary trunk, main right and left pulmonary arteries or their lower order branches to suggest pulmonary embolism. The bilateral main pulmonary arteries are normal in caliber. There is no evidence of interventricular septal deviation or filling defects in the cardiac chambers. There are underlying changes of COPD and presence of mild discoid atelectasis/infiltrate in the right middle lobe, lingula of the left lung and the left lower lobe of the lung The trachea, bilateral mainstem bronchi and the bilateral main segmental bronchi are patent without any intraluminal mass lesions. There is no gross evidence of clinically significant thoracic aortic aneurysm or thoracic aortic dissection. Atherosclerotic changes are seen in the thoracic aorta There is no clinically significant pericardial effusion. There are no pathologically enlarged lymph nodes in the mediastinum, bilateral hilar, bilateral supraclavicular or the bilateral axillary regions. The thoracic bony rib cage appears grossly unremarkable. The visualized thoracic spine shows multilevel degenerative change. There is prior cholecystectomy. The common duct is dilated with presence of intrahepatic biliary dilatation. This finding is stable since 10/13/2017 IMPRESSION: There is no pulmonary embolism. There are underlying changes of COPD and presence of mild discoid atelectasis/infiltrate in the right middle lobe, lingula of the left lung and the left lower lobe of the lung Electronically signed by: Teto Friedman MD 11/12/2017 2:08 PM CDT Workstation: [facility]
--- NOTE | 2017-11-12 15:34 | HP ---
SUPERVISING PHYSICIAN: [place] M.D. CHIEF COMPLAINT: Syncopal episode. HISTORY OF PRESENT ILLNESS: This is an 87 year-old female that presented to the Emergency Room this morning after having a syncope spell in her bathroom. She fell and hit her head. There was no loss of consciousness. She did not have her medic alert necklace on but had to crawl to it. She did not push the alert button but she did call her son and he called 911, and she was brought to the E. R. It is to be noted that prior to her fall she became very dizzy. She said her gait was off. She said that she "kind of went to the right." She did not feel any weakness on one side or the other, but shortly thereafter she fell. She also had 3 episodes of nausea and vomiting prior to her coming to the hospital. She also has had dizziness off and on since then. In the Emergency Room, she was found to have a heart rate in the low 50s. She does have a history of bradycardia. She was afebrile. Blood pressure was 162/72, respiratory rate 18, O2 sat 95% on room air. CBC was basically within normal limits. She did have a slight left shift on her differential. D-dimer was elevated at 0.51. She does have a significant history of DVTs with an IVC filter. Electrolytes were within normal limits. Creatinine was 1.1 with a baseline creatinine of about 1.1. BUN 34, calcium 10.3. Cardiac enzymes were negative. There were no changes on her EKG. Chest CTA showed no pulmonary embolism with underlying changes of COPD and the presence of mild discoid atelectasis/infiltrate in the right middle lobe, lingula of the left lung and the left lower lobe of the lung. Head CT shows no acute intracranial abnormality with age-related and chronic involutional changes. Chest x-ray shows no acute pleural parenchymal process seen. Cervical spine CT is negative for acute cervical spine bony trauma with significant degenerative changes. Abdominal x-ray showed no acute findings in the abdomen or pelvis. I was called for admission. PAST MEDICAL HISTORY: 1. Seasonal allergies. 2. Hyperlipidemia. 3. Hypertension. 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 5. Gastroesophageal reflux disease. 6. Irritable bowel syndrome. 7. Renal carcinoma. 8. Herpes zoster. PAST SURGICAL HISTORY: 1. Cholecystectomy. 2. Hysterectomy. 3. Right partial nephrectomy for renal cancer. 4. IVC filter. 5. Bilateral knee surgeries. CURRENT MEDICATIONS: ALLERGIES: PENICILLIN. ADVERSE REACTIONS ARE TO CODEINE. SHE DOES NOT TAKE NSAIDs BECAUSE OF HER RENAL CARCINOMA. FAMILY HISTORY: Positive for asthma, congestive heart failure, coronary artery disease. SOCIAL HISTORY: She is . She lives in [place]. She denies any tobacco, ETOH or illicit drug use. REVIEW OF SYSTEMS: GENERAL: Negative for fatigue, fever or weight changes. HEENT: Negative for sinus symptoms, ear pain, vision changes or sore throat. RESPIRATORY: Negative for coughing, wheezing or shortness of breath. CARDIAC: Negative for chest pain, palpitations or tachycardia. GASTROINTESTINAL: Positive for nausea and vomiting. Negative for diarrhea or constipation or abdominal pain. MUSCULOSKELETAL: Negative for arthralgias or myalgias. SKIN: Negative for lesions or rashes. NEUROLOGIC: Positive for dizziness and weakness. Negative for seizures or headaches. PHYSICAL EXAMINATION: VITAL SIGNS: She is afebrile, heart rate 51, blood pressure 135/69, respiratory rate 18, O2 sat 94% on room air. GENERAL: This is an 87 year-old female patient lying in her hospital bed. She is in no acute distress. HEENT: Normocephalic and atraumatic. Pupils are equal and reactive. Oropharynx is clear. There are no obvious lacerations or hematomas on her scalp. NECK: Supple without mass. RESPIRATORY: Essentially clear to auscultation bilaterally. CHEST: There is equal rise and fall of the chest with inspiration and expiration. CARDIOVASCULAR: Regular rate and rhythm. GASTROINTESTINAL: Abdomen is soft, nondistended, non-tender. Bowel sounds are positive. EXTREMITIES: No cyanosis, clubbing or edema. NEUROLOGIC: She is awake, alert and oriented times three. Cranial nerves II- XII are grossly intact. LABORATORY: Labs and films are as per the History of Present Illness. ASSESSMENT: 1. Syncopal episode with same level fall with no loss of consciousness. 2. Bradycardia. She does have a history of bradycardia with her normal heart rate in the 50s. 3. Questionable transient ischemic attacks prior to her fall. She did have difficulty walking. She said she could not walk straight. She walked to the right. 4. Gastroesophageal reflux disease. 5. Hypertension. 6. 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 She is on Xarelto. 7. History of renal carcinoma. 8. Irritable bowel syndrome. PLAN: We will place the patient in Observation. I have continued her home medications with the exception of her Xarelto. It can be restarted in the morning. At this time I want to check her neurologic status overnight before we restart it since she did hit her head. I have not started her Triamterene/ Hydrochlorothiazide for now. The patient states she has been having poor balance off and on for several months with some dizziness, but it has been a slow process so she may need a workup from a neurological standpoint. I have ordered SCDs for DVT prophylaxis and a PPI for ulcer prophylaxis. Neurologic checks every 4 hours with telemetry. Hopefully she should be discharged tomorrow. Recommended sending her home on 24 to 48 hour Holter monitor with close followup with Dr. Contreras, her primary care physician. I also cautioned the patient from staying at home alone until she gets a workup. We will continue to monitor her closely and follow as needed. Dr. Chacon is the collaborating physician available for consultation. #[id number] [facility]
[2017-11-12] MEDS ORDERED: SODIUM CHLORIDE 0.9% (FLUSH) 10 ML SYG IV PRN (16:33)
[2017-11-12] MEDS ORDERED: IV SET AND CAP CHANGE INJ INJ SCH (17:00)
[2017-11-12] MEDS: SODIUM CHLORIDE 0.9% (FLUSH) 10 ML SYG IV SCH (20:43)
[2017-11-12] MEDS ORDERED: GABAPENTIN 300 MG CAP PO SCH (21:00)
[2017-11-13 06:22] VITALS: TEMP 98.3; O2SAT 96
[2017-11-13] MEDS ORDERED: PANTOPRAZOLE SODIUM TAB 40 MG PO SCH (06:30)
[2017-11-13] MEDS ORDERED: POTASSIUM CHLORIDE 10 MEQ TAB PO SCH (07:30)
[2017-11-13] MEDS ORDERED: MAGNESIUM OXIDE 400 MG TAB PO SCH (09:00)
[2017-11-13] MEDS ORDERED: NON-FORMULARY MEDICATION 1 EA MIS (Triamterene & Hydrochlorothiaz [Triamterene/Hydrochloro PO SCH (09:00)
[2017-11-13] MEDS: SODIUM CHLORIDE 0.9% (FLUSH) 10 ML SYG IV SCH (09:43)
--- NOTE | 2017-11-13 12:21 | MRI ---
EXAM DESCRIPTION: Brain w/o Contrast: MRI. CLINICAL HISTORY: vertigo with near syncopal episode COMPARISON: MRI brain without contrast 11/13/2017. TECHNIQUE: Multiplanar, high-field MRI unit, multiple diffusion sequences, multiple conventional sequences without contrast. FINDINGS: Bilateral relatively symmetric multiple foci of hyperintense FLAIR and T2-weighted signal in the periventricular white matter more than the sam-white matter junctions of the cerebral hemispheres. No hemorrhage, no cerebral edema, no mass-effect. Stable since the prior study. Similar signal bilateral anterior basal ganglia. No change since the prior study. Normal signal in the brainstem and cerebellar hemispheres. No hemorrhage, no cerebral edema, no mass-effect. Concordance of the diffusion and non-diffusion sequences with no diffusion restriction. Cortical sulci, ventricles, and other CSF spaces, and the subdural spaces are normally configured except for mild prominence of the bilateral lateral ventricles. Stable since the prior study. No effacement or displacement. No midline shift. No extra-axial hemorrhage. Normal flow signal void in the major vessels of the [place], and the venous sinuses. IACs are symmetric bilaterally. Normal signal in the bilateral mastoid air cells. No mass effect in the bilateral cerebellopontine angles. Pituitary gland occupies most of the sella. Base of the cerebellar tonsils is above the foramen magnum. Minimal chronic mucoperiosteal thickening. Polyp or cyst in the right maxillary antrum is unchanged.. The bony calvarium is intact. IMPRESSION: 1. Abnormal white matter signal most likely related to cerebral microvascular disease and age-related changes, stable since the prior study July 2017. No new edema, mass effect, intra-axial or extra-axial hemorrhage. 2. Normal noncontrast MRI diffusion study with no diffusion restriction, no evidence of acute or subacute infarction. Slight prominence of the cerebral ventricles is stable. CRITICAL COMMUNICATION: The critical value was discussed directly by phone with Mr. Sukhi Mcdermott, Nurse Practitioner at approximately 1215, on November 13, 2017. Electronically signed by: Blayne Sanchez MD 11/13/2017 12:20 PM CDT
--- NOTE | 2017-11-13 12:26 | US ---
EXAM DESCRIPTION: Carotid Duplex: ULTRASOUND. CLINICAL HISTORY: vertigo with near syncopal episode COMPARISON: MRI of the brain without contrast on this visit. TECHNIQUE: Transcutaneous scanning utilizing sam-scale and Doppler modes to evaluate the bilateral carotid systems and vertebral arteries. Percentage of diameter of stenosis or no stenosis recorded will be based upon NASCET criteria. FINDINGS: Peak systolic/end diastolic (CM-Sec) CCA Right 59/8 Left 61/12. ICA Right proximal 60/15, mid 52/12. Left proximal 42/8, Distal 71/23. Vertebral Right 60/14 Left 49/7. ECA (PS Only) Right 35 left 38. ICA/CCA peak systolic ratio: Right 1.0 Left 1.2 ICA/CCA end diastolic ratio: Right 1.9 Left 2.0 Vertebral arteries: antegrade flow. Comments: Significant atherosclerotic plaque bilateral common carotid bifurcations and proximal ICAs. 79% area stenosis in the proximal right ICA and 68% diameter stenosis. IMPRESSION: 1. Doppler evaluation of the bilateral carotid systems and vertebral arteries shows no hemodynamically significant stenoses. However, grayscale measurements indicate critical stenosis in the proximal right ICA. Correlate with clinical findings and consider follow-up MRA of the carotid vertebral arteries or CTA with IV contrast. 2. Significant amount plaque seen in the carotid arteries bilaterally. Bilateral vertebral arteries showed antegrade-cephalad flow. CRITICAL COMMUNICATION: The critical value was discussed directly by phone with Mr. Sukhi Mcdermott, Nurse Practitioner at approximately 1215 hours, on November 13, 2017. Electronically signed by: Blayne Sanchez MD 11/13/2017 12:25 PM CDT
[2017-11-13] MEDS ORDERED: RIVAROXABAN 10 MG TAB PO ONE (15:41)
[2017-11-13] MEDS ORDERED: INFLUENZA VIRUS VACC (ADULT) 0.5 ML SYG IM ONE ×2 (15:48→15:59)
[2017-11-13] MEDS ORDERED: RIVAROXABAN 10 MG TAB ONE (15:58)
[2017-11-13 17:01] VITALS: BP 132/76
--- NOTE | 2017-11-20 10:02 | DS ---
SUPERVISING PHYSICIAN: Kendrick Stuart MD ADMISSION DIAGNOSES: 1. Syncopal episode with same level fall with no loss of consciousness. 2. Bradycardia WITH a history of bradycardia but normal heart rate in the 50s. 3. Questionable transient ischemic attacks prior to her fall. She did have a significant difficulty with walking from dizziness. 4. Gastroesophageal reflux disease. 5. Hypertension. 6. 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 She is on Xarelto. 7. History of renal carcinoma. 8. Irritable bowel syndrome. DISCHARGE DIAGNOSES: 1. Near syncopal episode with dizziness more attributed to chronic vertigo. 2. History of bradycardia with no EKG findings, heart rate lower than 50s. . 3. Concerns for transient ischemic attack, although MRI of the brain was without any significant findings. Lal likely related to chronic vertigo with carotid artery studies showing critical blockage of the ICA with MRA of the neck pending at time of discharge. 4. Gastroesophageal reflux disease. 5. Hypertension. 6. History of deep venous thromboses of lower extremities times three with an IVC filter placement, on Xarelto. 7. History of renal carcinoma. 8. Irritable bowel syndrome. REASON FOR HOSPITALIZATION: Ms. Garcia is an 87 year-old female patient that presented to the Emergency Room on the morning of 11/12/17 having a near syncopal episode in her bathroom. She fell and noted she hit her head but there was no loss of consciousness. She did have a medic alert device but had to crawl to it. She was then brought to the Emergency Room. She noted that prior to the fall she became very dizzy. She noted her gait was off and she kind of went to the right. She did feel weak on one side and shortly after that she fell. She also noted she had 3 episodes of nausea and vomiting prior to coming to the hospital. She also has had dizziness off and on since that time but she does have an extensive history of chronic vertigo. In the Emergency Room, she was found with a bradycardiac heart rate in the 50s but does have a history of bradycardia. She was afebrile. Blood pressure was 162/ 72. Laboratory studies were essentially unremarkable except for a slightly elevated D-dimer at 0.51. She does have a significant history of DVTs with an IVC filter. She had a chest CT in the Emergency Room that showed no pulmonary embolism with underlying changes of chronic obstructive pulmonary disease with the presence of mild discoid atelectasis/infiltrate in the right lobe, lingula of the left lower lobe of the lung. She also had an EKG that showed no acute changes. Cardiac enzymes were negative. Head CT showed no acute intracranial abnormality with age-related and chronic involutional changes. Chest x-ray showed no acute findings as well cervical spine CT was negative for acute bony trauma but chronic degenerative changes. She was placed in observation for further rule out of possible TIA and cardiac telemetry monitoring. She was placed in observation in stable condition. LABORATORY STUDIES: White count admission and discharge were within normal limits. Discharge was 4,900. Hemoglobin and hematocrit were stable at 12.8 and 38.2 respectively. At discharge, platelet count was 197,000, differential showed just a slight left shift initially on admission but this resolved prior to discharge. Coagulation studies showed normal PT/PTT. D-dimer was slightly elevated at 0.51. Chemistries on admission and discharge showed normal electrolytes. BUN was slightly elevated at discharge at 31 but creatinine was normal at 1.16. Blood sugar 126 and on discharge was 78. Calcium initially was 10.3, at discharge 9.6. Liver functions all within normal limits. Magnesium 2.0, troponin less than 0.02. Lipid panel showed to be within normal limits. Lipase was normal at 39. RADIOLOGY: She had multiple x-rays in the Emergency Room including CT of the head and cervical spine all without acute findings. Her chest x-ray was without any acute findings as well as an abdomen x-ray. She had a CT of the chest which showed to be without any evidence of a pulmonary embolism. There was note of changes of chronic obstructive pulmonary disease. Please see those results for full details. EKG in the Emergency Room showed sinus bradycardia, nonspecific ST changes. On the morning of discharge she had an MRI of the brain and per radiology interpretation there was abnormal white matter signals most likely related to cerebral microvascular disease and age-related changes, stable since prior study in July 2017. No new edema, mass effects, intra-axial or extraaxial hemorrhage. Normal noncontrast MRI diffusion study with no diffusion restrictions and no evidence of acute or subacute infarction. Slight prominence of the cerebral ventricle is stable. She then had a carotid Doppler ultrasound and per radiology interpretation there was note of critical stenosis involving the ICA with recommendations of MRA for followup. She then had an MRI at discharge of the neck and per radiology interpretation there was noted MRI of the bilateral carotid vertebral arteries were without any IV contrast showing narrowing of the bilateral proximal ICAs but critical stenosis bilaterally. The vertebral arteries were co-dominant. HOSPITAL COURSE: Ms. Garcia is admitted on 11/12/17 with a near-syncopal episode and with concerns for TIA. Therefore, she had a significant workup with EKGs, carotid artery studies and Brain MRI as well as a chest thoracic CTA. No acute findings were noted other than initially the carotid ultrasound showed a critical stenosis and this was followed up shortly after discharge a carotid artery MRI. She had no recurrence of any syncopal episodes. She ambulated without any assistance, without any return of her dizziness, showed no abnormal EKGs on telemetry. She had no further complaints and was clinically showing to be stable. Therefore, she was to be discharged to continue with followup management in the outpatient setting. PLAN: Ms. Garcia was discharged on 11/13/17 with instructions to followup with Dr. Contreras, her primary care physician on at 1345 hours. She was to have an MRI of the neck that was noted above on 11/13 and resume her home medications as directed and return to the hospital if she has concerning symptoms. DISCHARGE DIET: Low fat, low cholesterol. ACTIVITY: Increase as tolerated. No new medications were prescribed at discharge. She was already on Xarelto. This was continued as per prior to hospitalization. CONDITION ON DISCHARGE: Stable and improved. #[id number] [facility]
== END 2017-11-13 16:30 | disposition home or self-care (01) ==
LOC: ER 10:11 → INTOOBSV 15:32 → MS 15:32
PROVIDERS: ADMIT Family Medicine; ATTEND Nurse Practitioner Family
DX: R55 Syncope and collapse (principal); R42 Dizziness and giddiness; R00.1 Bradycardia, unspecified; S00.93XA Contusion of unspecified part of head, initial encounter; R26.2 Difficulty in walking, not elsewhere classified; K21.9 Gastro-esophageal reflux disease without esophagitis; I10 Essential (primary) hypertension; K58.9 Irritable bowel syndrome, unspecified; E78.5 Hyperlipidemia, unspecified; M47.812 Spondylosis without myelopathy or radiculopathy, cervical region; M48.02 Spinal stenosis, cervical region; M25.78 Osteophyte, vertebrae; I65.23 Occlusion and stenosis of bilateral carotid arteries; Z23 Encounter for immunization; Z79.01 Long term (current) use of anticoagulants; Z79.899 Other long term (current) drug therapy; Z86.718 Personal history of other venous thrombosis and embolism; Z85.528 Personal history of other malignant neoplasm of kidney; Z90.5 Acquired absence of kidney; Z88.0 Allergy status to penicillin; Z88.6 Allergy status to analgesic agent; W18.39XA Other fall on same level, initial encounter; Y93.89 Activity, other specified; Y92.002 Bathroom of unspecified non-institutional (private) residence as the place of occurrence of the external cause
CPT/HCPCS: 90674; 85379; 80048 ×2; 80061; 36415 ×2; 82550; 82553; 85025 ×2; 85730; 85610; 84484; 80076; G0008; 83690; 83880; 74018; 71045; 70450; 72125; 71275; 93880; 94760 ×2; 97116; G8978; G8979; G8980; 97162; 99285; 70551; 93005; G0378

== ENCOUNTER → 2017-11-14 | Outpatient (CLI) | payer MEDICARE, OTHER ==
--- NOTE | 2017-11-14 17:19 | MRI ---
EXAM DESCRIPTION: MRA Head and/or Neck CLINICAL HISTORY: CRITICAL RT ICA STENOSIS COMPARISON: MRI scan of the brain without contrast and Ultrasound carotid duplex 11/13/2017. TECHNIQUE: 2D and 3D [id number] thin-section axial acquisitions from the lower neck through the base of the skull. Non contrast. MIP reconstructions. FINDINGS: No significant narrowing or stenosis of the bilateral common carotid arteries. Narrowing of the proximal left ICA with plaque on the posterior wall resulting in the 43% diameter stenosis. Almost the exact degree in diameter stenosis in the proximal right ICA. Area bilateral ICAs show intermittent narrowing in the cervical and petrous segments. Bilateral proximal ECA vessels are unremarkable. No aneurysms, mass effect, or vasculitis. Normal origin of the bilateral vertebral arteries from the bilateral subclavian arteries and symmetric diameter bilaterally to the skull base. No stenosis, aneurysms, mass effect or vasculitis. IMPRESSION: MRA of the bilateral carotid vertebral arteries without gadolinium IV contrast showing narrowing of the bilateral proximal ICAs but no critical stenosis bilaterally. Vertebral arteries are codominant. Electronically signed by: Blayne Sanchez MD 11/14/2017 5:18 PM CDT
== END ==
LOC: MRI 10:55
PROVIDERS: ATTEND Nurse Practitioner Family
DX: I65.21 Occlusion and stenosis of right carotid artery (principal)

== ENCOUNTER → 2017-12-23 | Outpatient (CLI) | payer MEDICARE, OTHER | LOC: BFHH 16:05 | PROVIDERS: ATTEND Family Medicine | DX: N39.0 Urinary tract infection, site not specified (principal) ==

== ENCOUNTER → 2018-02-28 | Outpatient (CLI) | payer MEDICARE, OTHER | LOC: YCFC.O 15:55 | PROVIDERS: ATTEND Family Medicine | DX: N39.0 Urinary tract infection, site not specified (principal); R53.83 Other fatigue; R41.82 Altered mental status, unspecified; E05.90 Thyrotoxicosis, unspecified without thyrotoxic crisis or storm ==

== ENCOUNTER → 2018-03-07 | Outpatient (CLI) | payer MEDICARE, OTHER ==
--- NOTE | 2018-03-07 19:54 | US ---
US THYROID CLINICAL STATEMENT: E05.90 THYROTOXICOSIS.. No palpable mass. No prior thyroid surgery or therapy. COMPARISON: None FINDINGS: Size right thyroid lobe: 3.8 x 1.0 x 1.0 cm Size left thyroid lobe: 3.8 x 1.1 x 1.0 cm Size isthmus: 0.2 cm Estimated total number of nodules greater than or equal to 1 cm: 0. Heterogeneous echotexture. The gland is not enlarged. Nodule 1: Size: 0.3 x 0.2 x 0.2 cm Location: Left Mid Composition: cystic or completely cystic: 0 points Echogenicity: anechoic: 0 points Shape: wider than tall: 0 points Margins: smooth: 0 points Echogenic foci: none: 0 points ACR Total Points: 0; ACR TI-RADS risk category: TR1 - benign nodule Nodule 2: Size: 0.3 x 0.3 x 0.2 cm Location: Left Lower Composition: cystic or completely cystic: 0 points Echogenicity: anechoic: 0 points Shape: wider than tall: 0 points Margins: smooth: 0 points Echogenic foci: none: 0 points ACR Total Points: 0; ACR TI-RADS risk category: TR1 - benign nodule Soft tissue around the thyroid gland shows no dominant solid mass or distinct cyst. No parenchymal edema or large calcifications. No overlying skin changes. Normal vascularity. IMPRESSION: 1. Nodule 1: ACR TI-RADS 2017 Category TR1. Recommend: No further follow-up.. Recommendations based upon [employer] Best [employer] recommendations and ACR TI-RADS 2017 guidelines. Please see below*. 2. Nodule 2: ACR TI-RADS 2017 Category TR1. Recommend: No further follow-up. 3. Soft tissue around the thyroid gland is unremarkable. *ACR TI-RADS 2017 Recommendations: TR1: No FNA or follow up TR2: No FNA or follow up TR3: FNA if >/= 2.5 cm, follow up if 1.5 - 2.4 cm in 1, 3, and 5 years TR4: FNA if >/= 1.5 cm, follow up if 1.0 - 1.4 cm in 1, 2, 3, and 5 years TR5: FNA if >/= 1.0 cm, follow up if 0.5 - 0.9 cm every year for 5 years ACR TI-RADS recommends that no more than two nodules with the highest ACR TI-RADS total point should be biopsied and no more than four nodules should be followed. Electronically signed by: Blayne Sanchez MD 03/07/2018 7:52 PM [facility]
== END ==
LOC: US 13:56
PROVIDERS: ATTEND Family Medicine
DX: E05.90 Thyrotoxicosis, unspecified without thyrotoxic crisis or storm (principal)

== ENCOUNTER 2018-03-31 17:46 | Inpatient (IN) | payer MEDICARE, OTHER ==
[2018-03-31] MEDS ORDERED: IPRATROPIUM/ALBUTEROL 3 ML VIAL NEB ONE (18:15)
--- NOTE | 2018-03-31 18:19 | ED.PDOC ---
History of Present Illness - General Chief Complaint: Respiratory Problem Time Seen by Provider: 03/31/18 18:14 Source: patient, family Exam Limitations: clinical condition - History of Present Illness Initial Comments: patient comes in with 1 day history of severe shortness of breath, bodyaches, and increased temp. Daughter states she was in her usual health yesterday but started feeling ill this morning. Patient states that even with small amounts of movement she became extremely short of breath with a nonproductive cough and overall weakness. She has no chest pain and no chronic problems with her lungs. Patient has been extremely healthy although she did suffer a DVT after a [place] and for that reason had been on blood thinners. Patient has no nausea, vomiting, or sore throat. Timing/Duration: 24 hours Severity: severe Activities at Onset: rest Possible Cause: no prior episodes Improving Factors: nothing Worsening Factors: movement Associated Symptoms: fever, weakness Respiratory Risk Factors: no cause identified Allergies/Adverse Reactions: Allergies Codeine Allergy (Intermediate, Verified 11/12/17 15:42) Penicillins Allergy (Intermediate, Verified 11/12/17 15:42) Hives Home Medications: Ambulatory Orders Potassium Chloride [Micro-K] 10 meq PO DAILYBK 07/10/15 Triamterene & Hydrochlorothiaz [Triamterene/Hydrochloroth 37.5-25 mg] 0.5 tab PO DAILY 07/10/15 Folic Acid-Vitamin B6-Vitamin [Folbee 2.5-25-1 mg] 1 tab PO DAILY 12/01/16 Gabapentin 300 mg PO BEDTIME PRN 12/01/16 Cholecalciferol [D 2000] 2,000 unit PO DAILY 11/12/17 Loperamide HCl 1 mg PO DAILY 11/12/17 Magnesium [Magnesium 250 mg] 1 tab PO DAILY 11/12/17 Rivaroxaban [Xarelto] 20 mg PO DAILY 11/12/17 Review of Systems - Review of Systems Constitutional: States: fever, malaise, weakness EENTM: States: nose congestion. Denies: eye pain, ear pain, throat pain Respiratory: States: cough, short of breath. Denies: wheezing Cardiology: States: no symptoms reported. Denies: chest pain, edema, palpitations Gastrointestinal/Abdominal: States: no symptoms reported. Denies: abdominal pain, constipation, diarrhea, nausea, vomiting Genitourinary: States: no symptoms reported Past Medical History (General) - Patient Medical History Hx Seizures: No Hx Stroke: No Hx Dementia: No Hx Asthma: No - has been told asthma induced wheezing with uri Hx of COPD: No Hx Cardiac Disorders: Yes - Hx DVT Hx Congestive Heart Failure: No Hx Pacemaker: No Hx Hypertension: Yes Hx Thyroid Disease: No Hx Diabetes: No Hx Gastroesophageal Reflux: Yes Hx Renal Disease: No Hx Cancer: Yes - right kidney Hx of HIV: No Hx Hepatitis C: No Hx MRSA: No - Vaccination History Hx Tetanus, Diphtheria Vaccination: No Hx Influenza Vaccination: No Hx Pneumococcal Vaccination: No - Social History Hx Tobacco Use: No Hx Chewing Tobacco Use: No Hx Alcohol Use: No Hx Substance Use: No Hx Substance Use Treatment: No Hx Depression: No Hx Physical Abuse: No Hx Emotional Abuse: No Hx Suspected Abuse: No - Female History Patient : No Family Medical History - Family History Mother Family History: No Known Living Status: Hx Cardiac Disease: Yes - parents Hx Family Cancer: Yes - esophagus-brother Father Family History: No Known Living Status: Physical Exam - Physical Exam General Appearance: Alert, Frail, Obvious distress Eyes, Ears, Nose, Throat Exam: PERRL/EOMI, normal ENT inspection, TMs normal, pharynx normal Neck: non-tender, full range of motion, supple, normal inspection Respiratory: lungs clear, decreased breath sounds Cardiovascular/Chest: normal peripheral pulses, regular rate, rhythm, no edema, no murmur Peripheral Pulses: radial,right: 2+, radial,left: 2+ Gastrointestinal/Abdominal: normal bowel sounds, non tender, soft Rectal Exam: normal exam Extremity: non-tender Neurologic: alert, oriented x 3 Progress - Progress Progress: 03/31/18 21:00 patient is resting comfortably with mild cough but no shortness of breath. Patient still on 2 L NC with O2 sat 98 %. Will admit for obs - Results/Orders Results/Orders: 03/31/18 18:15 EKG STAT SVN/Updraft Therapy .PRN Laboratory Results WBC 8.9 K/mm3 (4.8-10.8) 03/31/18 18:15 RBC 4.32 M/mm3 (4.20-5.40) 03/31/18 18:15 Hgb 12.9 gm/dL (12.0-16.0) 03/31/18 18:15 Hct 39.5 % (36.0-47.0) 03/31/18 18:15 MCV 91.4 fl (81.0-99.0) 03/31/18 18:15 MCH 29.9 pg (27.0-31.0) 03/31/18 18:15 MCHC 32.6 g/dL (33.0-37.0) L 03/31/18 18:15 RDW 13.3 % (11.5-14.5) 03/31/18 18:15 Plt Count 231 K/mm3 (130-400) 03/31/18 18:15 MPV 8.9 fl (7.40-10.4) 03/31/18 18:15 Absolute Neuts (auto) 7.40 K/uL (1.8-6.8) H 03/31/18 18:15 Absolute Lymphs (auto) 0.70 K/uL (1.0-3.4) L 03/31/18 18:15 Absolute Monos (auto) 0.60 K/uL (0.2-0.8) 03/31/18 18:15 Absolute Eos (auto) 0.10 K/uL (0.0-0.4) 03/31/18 18:15 Absolute Basos (auto) 0.10 K/uL (0.0-0.1) 03/31/18 18:15 Neutrophils % 84.0 % (42.0-78.0) H 03/31/18 18:15 Lymphocytes % 7.5 % (20.0-50.0) L 03/31/18 18:15 Monocytes % 6.3 % (2.0-9.0) 03/31/18 18:15 Eosinophils % 1.6 % (1.0-5.0) 03/31/18 18:15 Basophils % 0.6 % (0.0-2.0) 03/31/18 18:15 D-Dimer, Quantitative 0.58 mg/L FEU (0-0.49) H* 03/31/18 18:15 pCO2 35 mmHg (32-45) 03/31/18 18:16 pO2 72 mmHg (83-108) L 03/31/18 18:16 HCO3 22.9 mmol/L 03/31/18 18:16 ABG pH 7.440 (7.35-7.45) 03/31/18 18:16 ABG O2 Saturation 97.0 % (95.0-99.0) 03/31/18 18:16 ABG Base Excess -0.4 mmol/L 03/31/18 18:16 ABG Deoxyhemoglobin 2.9 % (0.0-5.0) 03/31/18 18:16 Oxyhemoglobin % 95.2 % (94.0-98.0) 03/31/18 18:16 Carboxyhemoglobin % 0.1 % (0.5-1.5) L 03/31/18 18:16 Methemoglobin % Sat 1.8 % (0.0-1.5) H 03/31/18 18:16 Calc Total Hemoglobin 11.9 g/dL (12.0-16.0) L 03/31/18 18:16 Sodium 137 mmol/L (135-145) 03/31/18 18:15 Potassium 3.7 mmol/L (3.6-5.0) 03/31/18 18:15 Chloride 103 mmol/L (101-111) 03/31/18 18:15 Carbon Dioxide 25 mmol/L (21-31) 03/31/18 18:15 Anion Gap 12.7 (12-18) 03/31/18 18:15 BUN 28 mg/dL (7-18) H 03/31/18 18:15 Creatinine 0.86 mg/dL (0.6-1.3) 03/31/18 18:15 BUN/Creatinine Ratio 32.6 (10-20) H 03/31/18 18:15 Random Glucose 98 mg/dL (70-105) 03/31/18 18:15 Serum Osmolality 279.3 mOsm/L (275-295) 03/31/18 18:15 Lactic Acid 1.1 mmol/L (0.5-2.2) 03/31/18 18:15 Calcium 10.3 mg/dL (8.4-10.2) H 03/31/18 18:15 Total Bilirubin 0.8 mg/dL (0.2-1.0) 03/31/18 18:15 AST 25 IU/L (10-42) 03/31/18 18:15 ALT 15 IU/L (10-60) 03/31/18 18:15 Alkaline Phosphatase 58 IU/L (42-121) 03/31/18 18:15 Creatine Kinase 67 IU/L (26-140) 03/31/18 18:15 CK-MB (CK-2) 1.2 ng/mL (0.0-4.4) 03/31/18 18:15 CK-MB (CK-2) % Not Reportable 03/31/18 18:15 Troponin I < 0.02 ng/mL (0.01-0.05) 03/31/18 18:15 Serum Total Protein 6.8 gm/dL (6.4-8.2) 03/31/18 18:15 Albumin 3.8 g/dl (3.2-5.5) 03/31/18 18:15 Globulin 3.0 gm/dL (2.3-3.5) 03/31/18 18:15 Albumin/Globulin Ratio 1.3 (1.1-1.9) 03/31/18 18:15 Patient Name: RENÉ TOM Gender: Female Date of : 1930 Referring Physician: MEGAN STARR Organization: [facility] Accession Number: [id number] Requested Date: March 31, 2018 19:13 Report Status: Final Requested Procedure: 1 Procedure Description: CTA Chest Modality: CT Findings Reporting MD: Mikel Urena Fellow MD: Not available Dictation Time: Licensed Vocational Nurse: Not available Refrigerating Technician Date: EXAM: CT CHEST ANGIOGRAPHY WITH IV CONTRAST HISTORY: hypoxia, elevated d-dimer COMPARISON: Chest CT November 12, 2017 TECHNIQUE: Multiple helical axial tomographic images were obtained of the chest following administration of intravenous contrast per angiographic protocol. MIP reformatted images were obtained. This exam was performed according to our departmental dose-optimization program, which includes automated exposure control, adjustment of the mA and/or kV according to patient size and/or use of iterative reconstruction technique. FINDINGS: Thyroid gland: unremarkable. Axilla: unremarkable. Pulmonary arteries: Evaluation of the peripheral pulmonary arteries is limited secondary to mild motion artifact. No evidence of pulmonary embolism within the main, right/left, lobar, or proximal segmental pulmonary arteries. Aorta: Aortic atherosclerosis is present. No evidence of aortic dissection or aneurysm. Mediastinum: Unremarkable. No adenopathy. Heart: Heart is normal in size. A few coronary artery calcifications are noted. Lungs/airways: No consolidation. Airways are patent. Small areas of linear atelectasis versus scarring in the left lower lobe and lingula present. Pleural spaces: No significant pleural effusion. No pneumothorax. Osseous: Dextrocurvature of the thoracic spine noted. Mild degenerative changes of the spine present. [facility] [address] [place] [place] [address], [address] [place], [place] T [phone] F [phone] [email or web address] - Report exported on SatMar 31, 2018 20:55:24 -0600 - Page 2 of 2 Soft tissues: Unremarkable. Visualized abdomen: Common bile duct measures up to 1.4 cm in width and unchanged, nonspecific in the setting of prior cholecystectomy. IMPRESSION: Evaluation of the peripheral pulmonary arteries is limited secondary to mild motion artifact. No evidence of pulmonary embolism within the main, right/left, lobar, or proximal segmental pulmonary arteries. \\ Patient Name: RENÉ TOM Gender: Female Date of : 1930 Referring Physician: MEGAN STARR Organization: [facility] Accession Number: [id number] Requested Date: March 31, 2018 18:15 Report Status: Final Requested Procedure: 1 Procedure Description: Chest,1 View Modality: CR Findings Reporting MD: Aris Jarvis MD: Not available Dictation Time: Licensed Vocational Nurse: Not available Refrigerating Technician Date: EXAM: Chest,1 View CLINICAL INDICATION: Hypoxia COMPARISON: 11/12/2017 FINDINGS: A single view of the chest was obtained. Atherosclerotic calcifications are noted involving the aorta. The heart size is normal. The pulmonary vascularity is unremarkable. The lungs are clear. There is no consolidation, infiltrate, pleural effusion, or pneumothorax. IMPRESSION: No evidence of active pulmonary disease. - EKG/XRAY/CT EKG: Sinus, nonspecific ST T wave Chg Comments: HR 98, normal axis Departure - Departure Clinical Impression: Hypoxemia Upper respiratory infection Qualifiers: URI type: unspecified URI Qualified Code(s): J06.9 - Acute upper respiratory infection, unspecified Disposition: Admit Patient Condition: Fair Departure Forms: ED Discharge - Pt. Copy, Patient Portal Self Enrollment Referrals: Angel Contreras MD [Primary Care Provider] - 1-2 Weeks Home Medications: Ambulatory Orders Potassium Chloride [Micro-K] 10 meq PO DAILYBK 07/10/15 Triamterene & Hydrochlorothiaz [Triamterene/Hydrochloroth 37.5-25 mg] 0.5 tab PO DAILY 07/10/15 Folic Acid-Vitamin B6-Vitamin [Folbee 2.5-25-1 mg] 1 tab PO DAILY 12/01/16 Gabapentin 300 mg PO BEDTIME PRN 12/01/16 Cholecalciferol [D 2000] 2,000 unit PO DAILY 11/12/17 Loperamide HCl 1 mg PO DAILY 11/12/17 Magnesium [Magnesium 250 mg] 1 tab PO DAILY 11/12/17 Rivaroxaban [Xarelto] 20 mg PO DAILY 11/12/17 Decision To Admit - Decistion To Admit Decision to Admit Reason: Admit from ER Decision to Admit Date: 03/31/18 Decision to Admit Time: 21:01
--- NOTE | 2018-03-31 18:48 | RAD ---
EXAM: Chest,1 View CLINICAL INDICATION: Hypoxia COMPARISON: 11/12/2017 FINDINGS: A single view of the chest was obtained. Atherosclerotic calcifications are noted involving the aorta. The heart size is normal. The pulmonary vascularity is unremarkable. The lungs are clear. There is no consolidation, infiltrate, pleural effusion, or pneumothorax. IMPRESSION: No evidence of active pulmonary disease. Electronically signed by: Aris Jarvis MD 03/31/2018 6:46 PM PEDICAB DRIVER
[2018-03-31] MEDS ORDERED: SODIUM CHLORIDE 0.9% 500ML 500 ML IVS ONE (18:57)
--- NOTE | 2018-03-31 20:49 | CT ---
EXAM: CT CHEST ANGIOGRAPHY WITH IV CONTRAST HISTORY: hypoxia, elevated d-dimer COMPARISON: Chest CT November 12, 2017 TECHNIQUE: Multiple helical axial tomographic images were obtained of the chest following administration of intravenous contrast per angiographic protocol. MIP reformatted images were obtained. This exam was performed according to our departmental dose-optimization program, which includes automated exposure control, adjustment of the mA and/or kV according to patient size and/or use of iterative reconstruction technique. FINDINGS: Thyroid gland: unremarkable. Axilla: unremarkable. Pulmonary arteries: Evaluation of the peripheral pulmonary arteries is limited secondary to mild motion artifact. No evidence of pulmonary embolism within the main, right/left, lobar, or proximal segmental pulmonary arteries. Aorta: Aortic atherosclerosis is present. No evidence of aortic dissection or aneurysm. Mediastinum: Unremarkable. No adenopathy. Heart: Heart is normal in size. A few coronary artery calcifications are noted. Lungs/airways: No consolidation. Airways are patent. Small areas of linear atelectasis versus scarring in the left lower lobe and lingula present. Pleural spaces: No significant pleural effusion. No pneumothorax. Osseous: Dextrocurvature of the thoracic spine noted. Mild degenerative changes of the spine present. Soft tissues: Unremarkable. Visualized abdomen: Common bile duct measures up to 1.4 cm in width and unchanged, nonspecific in the setting of prior cholecystectomy. IMPRESSION: Evaluation of the peripheral pulmonary arteries is limited secondary to mild motion artifact. No evidence of pulmonary embolism within the main, right/left, lobar, or proximal segmental pulmonary arteries. Electronically signed by: Mikel Urena MD 03/31/2018 8:47 PM WATER REUSE PROGRAM MANAGER
--- NOTE | 2018-03-31 23:06 | HP ---
SUPERVISING PHYSICIAN: David Cochran MD CHIEF COMPLAINT: Shortness of breath. HISTORY OF PRESENT ILLNESS: Ms. Garcia is an 87 year-old female patient earlier [facility] with complaints of having a 24-hour history of shortness of breath, body aches, fever. Her daughter note that she has been in her usual health 24 hours prior and started feeling ill this morning. she was [id number] dys[facility] and diagnosed with UTI and started on Macrobid. A culture was sent and is pending. Her daughter and son aslo voice that the patient seems to be mildly confused at times. She noted that even small amounts of exertional effort, she was short of breath and has had a nonproductive cough and history of increasing weakness. She denied any chest pain. She does have a history of previous DVT and is on chronic Xarelto. Initial workup in the Emergency Room included laboratory studies that showed a white count of 8,900 without a left shift. Blood gas analysis showed she had mild hypoxemia with a PO2 of 72, PCO2 of 35. ABG, pH 7.4, saturation 97% on 2 liters nasal cannula. Chemistries showed elevated BUN of 28, lactic acid normal at 1.2. Liver functions all normal as well as troponin at less than 0.02. Radiographic studies included a chest x-ray without any acute findings. Given that she had a mildly elevated D-dimer and past medical history with D-dimer showing to be 0.58, a CT of the chest to rule out a PE was completed and per radiology interpretation was noted the study was suboptimal, peripheral arteries limited secondary to motion artifact with no evidence of pulmonary embolisms within the main right left lobar or proximal segmental pulmonary arteries is noted. Lungs were noted to have no consolidation. There were small areas of linear atelectasis versus scarring in the left lower lobe. No pneumothorax, no pleural effusions noted. Vital signs on admission show she was febrile with temperature of 100.2, heart rate 106, blood pressure1 56/88. She was tachypneic at 27 and maintaining 02 saturations at room air on rest at 91%. After breathing treatments, she increased to 94% on 2 liters nasal cannula. She was quite hypertensive at times with blood pressure of 146/110. Given her influenza-like illness, influenza testing was done by PCR which was negative, however, she did have a left shift and symptoms consistent with possible influenza. Given her advanced age and underlying comorbidities with DVT and shortness of breath, Dr. Watson requested the patient be admitted or at least placed in observation for further treatment and evaluation to further rule out developing complications for influenza and possible developing left-sided pneumonia, community acquired. She was admitted in stable condition. PAST MEDICAL HISTORY: 1. Seasonal allergies. 2. Hyperlipidemia. 3. Hypertension. 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 5. Gastroesophageal reflux disease. 6. Irritable bowel syndrome. 7. Renal carcinoma. 8. Herpes zoster infection. PAST SURGICAL HISTORY: 1. Cholecystectomy. 2. Hysterectomy. 3. Right partial nephrectomy for renal cancer. 4. IVC filter placement. 5. Bilateral knee surgeries. CURRENT MEDICATIONS: Please see the updated list of verified medications but at time of admission was on: 1. Triamterene, Hydrochlorothiazide 37.5/25 mg, one-half tablet daily. 2. Xarelto 20 mg daily. 3. Potassium chloride 10 mEq daily. 4. Magnesium 250 one tablet daily. 5. Loperamide HCL 1 mg daily. 6. Gabapentin 300 mg at bedtime as needed. 7. Folic acid replacement, 1 tablet daily. 8. B2, 2000 units daily. ALLERGIES: PENICILLIN. ADVERSE REACTIONS ARE TO CODEINE. SHE DOES NOT TAKE NSAIDs BECAUSE OF HER RENAL CARCINOMA AND PARTIAL NEPHRECTOMY. FAMILY HISTORY: Positive for asthma, congestive heart failure, coronary artery disease. SOCIAL HISTORY: The patient is . She lives in [place]. She denies any tobacco, alcohol or illicit drug use. REVIEW OF SYSTEMS: CONSTITUTIONAL: Positive for fevers, chills, general malaise, weakness. HEENT: Positive for nasal congestion, denies sore throat, earache, eye pain, vision changes. RESPIRATORY: Positive for shortness of breath, worsening cough, negative for any wheezing. CARDIAC: Negative for chest pains, palpitations, edema, syncopal episodes. GASTROINTESTINAL: Negative for abdominal pain, constipation, diarrhea, nausea or vomiting. . GENITOURINARY: Positive for dysuria, negative for hematuria, polyuria. NEUROLOGICAL: Negative for any neurological deficits, seizures, ataxia. PHYSICAL EXAMINATION: VITAL SIGNS: Temperature 100.2, pulse 106, blood pressure 156/88, respirations 27, saturation 91% on room air improving to 94 to 97% on nasal cannula 2 liters after breathing treatment. Admission weight 63.5 kg. GENERAL: The patient is elderly and frail on admission, appears to be comfortable and in no acute distress. HEENT: Tympanic membranes are clear bilaterally. Pharynx is pink, moist with some mild nasal congestion, bilateral nares. NECK: Supple, non-tender, full range of motion. No jugular venous distention. CHEST: Clear to auscultation, just diminished throughout with no rhonchi, rales, or wheezes noted. CARDIOVASCULAR: Regular rate and rhythm without appreciable murmurs, rubs, or gallops. ABDOMEN: Soft, non-tender, positive bowel sounds. EXTREMITIES: No cyanosis, clubbing, or edema. NEUROLOGIC: She is alert and oriented x3. LABORATORY: White count 8,900, hemoglobin 12.9, hematocrit 39.5, platelet count 231,000, differential did show a left shift. Coagulation studies showed elevated PT of 0.58. Blood gas analysis showed a low P02 of 72 on 2-liter nasal cannula, saturation 97% with a pH of 7.44, PC02 of 35, bicarb 22, base excess negative 0.4. Chemistries showed normal electrolytes, BUN slightly elevated at 28 with glucose 98, lactis acid 1.1, calcium 10.3. Liver functions all within normal limits. Troponin less than 0.02. Urinalysis pending. MICROBIOLOGY: Influenza A and B by PCR was negative. RADIOLOGY: Initially showed chest x-ray in the Emergency Room and per radiology interpretation of single-view chest showed no active pulmonary disease. CT of the chest to rule out pulmonary embolism was repeated given her pneumothorax of DVT and IVC placement and per radiology interpretation showed evaluation of peripheral pulmonary arteries is limited secondary to mild motion artifact but no evidence of pulmonary embolism were within the main right left lobular or proximal segmental pulmonary arteries. ASSESSMENT: 1. Influenza-like illness with hypoxemia with the patient showing to be febrile, tachycardiac. 2. UTI/ Cystitis with culture pending and failed outpatient treatment on Macrobid 3. Metabolic encephalopathy probably do to concurrent infections including Influenza Like illness and UTI. 4. History of DVTs with current elevated D-dimer but CTA without any indication of central pulmonary emboli. Unable to fully rule out peripheral emboli due to motion artifact. 5. Mild dehydration secondary to #1 exacerbating # 3 6. History of hypertension. 7. History of 3 DVTs with IVC placement and chronic Xarelto. 8. Gastroesophageal reflux disease. 9. History of irritable bowel syndrome. 10. History of renal carcinoma with a right partial nephrectomy. 11. Seasonal allergies. 12. Hyperlipidemia. PLAN: The patient will be admitted tonight for further evaluation and treatment. Given that she does have an influenza-like illness, we will go ahead and put her on antivirals with Tamiflu and treat her with antibiotics ,Rocephin and azithromycin with concerns for developing pneumonia and empiric coverage for the UTI. Will need to call the [facility] Monday to get visit notes and the urine culture results. Await final culture results to target antibiotic therapy.. She is already on Xarelto, we will continue this for DVT prophylaxis. Will resume her home medications once they are updated and verified. If her mental status improved or back to base line levels by the morning will get a CT of the head. We will put her on aggressive pulmonary hygiene with Duoneb treatments q.i.d. and albuterol as needed p.r.n. We will plan to repeat labs and x-rays in the morning. She will be on 02 as needed to maintain her saturations above 92%. Due to her advanced age and multiple comorbidities anticipate her length of stay to be least 2-3 days. Will also start her on some IV fluids given some mild dehydration and will start her on half normal saline with 20 of potassium at 80 an hour. Until she can transition to outpatient management we will continue to monitor and treat as needed. #[id number] MTDD
[2018-03-31] MEDS ORDERED: NITROFURANTOIN MONOHYDRATE MAC 100 MG CAP PO ONE (23:07)
[2018-03-31] MEDS ORDERED: MAGNESIUM HYDROXIDE 30 ML UD PO PRN (23:44)
[2018-03-31] MEDS ORDERED: SODIUM CHLORIDE 0.9% (FLUSH) 10 ML SYG IV PRN (23:44)
[2018-03-31] MEDS ORDERED: ACETAMINOPHEN 325 MG TAB PO PRN (23:44)
[2018-03-31] MEDS ORDERED: ONDANSETRON INJ 4 MG/2 ML VIAL IV PRN (23:44)
[2018-03-31] MEDS ORDERED: ALBUTEROL SULFATE 2.5 MG/3 ML VIAL NEB PRN (23:44)
[2018-03-31] MEDS ORDERED: IV SET AND CAP CHANGE INJ INJ SCH (23:45)
[2018-03-31] MEDS ORDERED: OSELTAMIVIR 75 MG CAP PO ONE (23:47)
[2018-04-01] MEDS ORDERED: SODIUM CHL 0.9% 50ML MIN-BAG+ 50 ML IVPB ONE ×2 (00:10→19:42)
[2018-04-01] MEDS ORDERED: cefTRIAXone SODIUM 1 GM VIAL ONE ×2 (00:11→19:42)
[2018-04-01] MEDS ORDERED: SODIUM CHLORIDE 0.9% 250ML 250 ML ONE ×2 (00:11→19:42)
[2018-04-01] MEDS ORDERED: AZITHROMYCIN IV 500 MG VIAL IVPB ONE ×2 (00:12→19:42)
[2018-04-01] MEDS: KCL 20MEQ/0.45% NS 1,000 ML IVS PRN (00:17)
[2018-04-01] MEDS: cefTRIAXone SODIUM 1 GM in SODIUM CHL 0.9% 50ML MIN-BAG+ 50 ML IVPB SCH ×2 (00:20→23:48)
[2018-04-01] MEDS ORDERED: BENZONATATE PERLES 100 MG CAP PO ONE (00:27)
[2018-04-01] MEDS: AZITHROMYCIN IV 500 MG in SODIUM CHLORIDE 0.9% 250ML 250 ML IVPB SCH (02:22)
[2018-04-01] MEDS ORDERED: IPRATROPIUM/ALBUTEROL 3 ML VIAL INH SCH (08:00)
[2018-04-01] MEDS: OSELTAMIVIR 75 MG CAP PO SCH ×2 (09:16→21:02)
[2018-04-01] MEDS: BENZONATATE PERLES 100 MG CAP PO SCH ×3 (09:16→21:02)
--- NOTE | 2018-04-01 09:25 | RAD ---
EXAM DESCRIPTION: Chest,1 View CLINICAL HISTORY: Pneumonia COMPARISON: March 31, 2018 FINDINGS: Cardiac silhouette is within normal limits. There is worsening consolidation at the medial right midlung and left lung base. IMPRESSION: Worsening bilateral consolidations. Electronically signed by: Blayne Greenberg 04/01/2018 9:23 AM MARKETING TECHNOLOGIST
[2018-04-01] MEDS ORDERED: POTASSIUM CHLORIDE 20 MEQ TAB PO ONE (10:35)
[2018-04-01] MEDS ORDERED: MAGNESIUM SULFATE PREMIX 2GM 2 GM in PREMIX BAG 1 BAG IVPB ONE (12:46)
[2018-04-01] MEDS ORDERED: MAGNESIUM SULFATE PREMIX 2GM 50 ML IVPB ONE (12:47)
[2018-04-01] MEDS: RIVAROXABAN 10 MG TAB PO SCH (13:12)
[2018-04-01] MEDS: IPRATROPIUM/ALBUTEROL 3 ML VIAL NEB SCH ×3 (13:24→21:20)
--- NOTE | 2018-04-01 23:52 | PN ---
DATE: 04/01/18 SUPERVISING PHYSICIAN: David Cochran M.D. SUBJECTIVE: The patient continues to have some mild confusion this morning. Family feels like she is not at her baseline yet. She does easily reorient but is obviously not completely at baseline mental status. She has been afebrile since admission with T max temperature 100.7. OBJECTIVE: CHEST: Lung sounds are diminished towards the bases with some rhonchi heard on the right compared to the left. HEART: Regular rate and rhythm. ABDOMEN: Soft, non-tender. Positive bowel sounds. EXTREMITIES: Without any clubbing, cyanosis or edema. NEUROLOGIC: She was alert to herself but disoriented to current time and place, but easily reorients to the patient's family members. The patient is not quite at baseline levels. LABORATORY: White count is up to 12,500 with hemoglobin 11.8, hematocrit 35.3, platelet count 197,000. Differential shows to be with a left shift. Chemistries show a mildly low potassium at 3.2. BUN 22, creatinine 0.83, glucose 96, magnesium is low at 1.7. Urinalysis showed a trace of lysed blood, small amount of bilirubin, small leukocyte esterase. Microscopic revealed 3 to 5 RBCs 3 to 5 WBCs, 5 to 10 epithelials and rare bacteria. MICROBIOLOGY: Urine culture is pending. There is a urine culture pending from the clinic at the walk-in clinic which will need to followup with. Her Influenza A and B by PCR was negative. RADIOLOGY: Chest x-ray this morning single view chest per radiology interpretation shows worsening bilateral consolidations. ASSESSMENT: 1. Influenza-like illness with hypoxemia with the patient showing to be febrile, tachycardiac with bilateral pneumonia. 2. Urinary tract infection with cultures pending having failed to respond to outpatient treatment measures with Macrobid 3. Metabolic encephalopathy secondary to #1 and #2. 4. History of DVTs with elevated D-dimer on admitted but CTA without indication of central pulmonary emboli. Unable to fully rule out peripheral emboli due to motion artifact, but the patient is on chronic Xarelto therapy and has an IVC filter placement. 5. Mild dehydration secondary to #1 and # 3, improving with fluids. 6. Mild electrolyte imbalance with mild hypokalemia and hypomagnesemia requiring replacement. 7. 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 8. History of hypertension. 9. Gastroesophageal reflux disease. 10. History of irritable bowel syndrome. 11. History of renal carcinoma with a right partial nephrectomy. 12. Seasonal allergies. 13. Hyperlipidemia. PLAN: Will continue with antibiotics today with Rocephin and azithromycin and her Tamiflu. If the patient continues to not show significant improvement given that she has both a urinary tract infection and bilateral pneumonia, certainly will need to escalate her antibiotic coverage, but until then will continue with current coverage. Will provide aggressive pulmonary hygiene and chest percussive therapy. Will await culture studies to further target antibiotic therapy. Will anticipate at least another 2 to 3 days of admission given the patient's advanced age and multiple infections and co-morbidities. Will reassess some more of her labs and chest x-ray. Until she can transition to outpatient management will continue to monitor and treat as needed. #[id number] [facility]
[2018-04-02] MEDS: AZITHROMYCIN IV 500 MG in SODIUM CHLORIDE 0.9% 250ML 250 ML IVPB SCH ×2 (00:44→22:55)
[2018-04-02] MEDS: KCL 20MEQ/0.45% NS 1,000 ML IVS PRN ×2 (06:02→18:43)
--- NOTE | 2018-04-02 09:22 | RAD ---
EXAM DESCRIPTION: Chest,1 View CLINICAL HISTORY: pneumonia COMPARISON: April 01, 2018 IMPRESSION: Single AP portable upright view of the chest shows mild enlargement of the cardiac silhouette without pulmonary vascular congestion. Lungs are mildly hypoaerated. Right lung is clear. Increased interstitial markings in the left lower lobe retrocardiac region could represent atelectasis versus developing interstitial pneumonia or pneumonitis. No pleural effusion or pneumothorax is seen. Electronically signed by: Dilshad De La O MD 04/02/2018 9:20 AM [facility]
[2018-04-02] MEDS: POTASSIUM CHLORIDE 10 MEQ TAB PO SCH (09:36)
[2018-04-02] MEDS: RIVAROXABAN 10 MG TAB PO SCH (09:36)
[2018-04-02] MEDS: BENZONATATE PERLES 100 MG CAP PO SCH ×3 (09:36→20:06)
[2018-04-02] MEDS: OSELTAMIVIR 75 MG CAP PO SCH ×2 (09:37→20:05)
[2018-04-02] MEDS: IPRATROPIUM/ALBUTEROL 3 ML VIAL NEB SCH ×4 (10:20→21:22)
[2018-04-02] MEDS ORDERED: DIPHENOXYLATE HCL/ATROPINE 2.5 MG TAB PO PRN (11:18)
[2018-04-02] MEDS: BIFIDOBACTERIUM INFANTIS 4 MG CAP PO SCH (11:24)
--- NOTE | 2018-04-02 15:28 | US ---
EXAM DESCRIPTION: Venous,Lower Extremity LT: ULTRASOUND. CLINICAL HISTORY: Hx DVT, elevated D-dimer COMPARISON: None Available. TECHNIQUE: Dunn-scale and doppler sonographic evaluation of the deep venous system of the left lower extremity. FINDINGS: Doppler evaluation shows normal color flow and normal phasicity and augmentation of the left common femoral vein, deep femoral vein, femoral vein, popliteal vein, greater saphenous vein, peroneal, anterior and posterior tibial vein. The left lower extremity deep veins were completely compressible; normal occlusion with transducer pressure. Dunn-scale survey showed no echogenic thrombus within these veins. IMPRESSION: 1. Duplex ultrasound evaluation of the left lower extremity deep venous system showing no evidence of thrombosis. Electronically signed by: Blayne Sanchez MD 04/02/2018 3:26 PM [employer]
--- NOTE | 2018-04-02 15:31 | US ---
EXAM DESCRIPTION: Venous,Lower Extremity RT: ULTRASOUND. CLINICAL HISTORY: Hx DVT, elevated D-dimer COMPARISON: None Available. TECHNIQUE: Dunn-scale and doppler sonographic evaluation of the deep venous system of the right lower extremity. FINDINGS: Doppler evaluation shows normal color flow and normal phasicity and augmentation of the right common femoral vein, femoral vein, popliteal vein, greater saphenous vein, peroneal, and posterior tibial vein. The right lower extremity deep veins were completely compressible; normal occlusion with transducer pressure. Dunn-scale survey showed no echogenic thrombus within these veins. IMPRESSION: 1. Duplex ultrasound evaluation of the right lower extremity deep venous system showing no evidence of thrombosis. Electronically signed by: Blayne Sanchez MD 04/02/2018 3:29 PM [employer]GRAPH[employer]MENT ASSEMBLER
[2018-04-02] MEDS ORDERED: cefTRIAXone SODIUM 1 GM VIAL ONE (19:20)
[2018-04-02] MEDS ORDERED: SODIUM CHL 0.9% 50ML MIN-BAG+ 50 ML IVPB ONE (19:20)
[2018-04-02] MEDS ORDERED: SODIUM CHLORIDE 0.9% 250ML 250 ML ONE ×2 (19:20→22:28)
[2018-04-02] MEDS ORDERED: AZITHROMYCIN IV 500 MG VIAL IVPB ONE (19:21)
--- NOTE | 2018-04-02 20:46 | PN ---
DATE: 04/02/18 SUPERVISING PHYSICIAN: West Chacon M.D. SUBJECTIVE: The patient feels much better today, she says. Family feels like she is pretty well back to her baseline mental status. She has been afebrile for the last 48 hours. OBJECTIVE: VITAL SIGNS: Temperature 98.3, pulse 89, blood pressure 125/63, respirations 18, satting 93% on room air. I's and O's show a positive balance of 570 with 1480 in, 902 out. Weight is 62.5 kg. CHEST: Lungs are clear to auscultation, just slightly diminished towards the bases. HEART: Regular rate and rhythm. ABDOMEN: Soft, non-tender. Positive bowel sounds. EXTREMITIES: Show to be without any edema. NEUROLOGIC: She is alert and oriented to herself. She still cannot remember the place that she is at, but she knows her family and she knows what is going on in regards to her care. Family reports that that is pretty close to her normal baseline levels. LABORATORY: White count is now normalized at 7,600, hemoglobin 104, hematocrit 31.4, platelet count 163,000. Differential shows to be without a left shift. today. Chemistries show normal electrolytes with potassium 4.2, BUN 20, creatinine 0.77, magnesium is normal at 2.0. RADIOLOGY: Lower extremity ultrasound s are pending bilaterally. ASSESSMENT: 1. Left lower lobe pneumonia secondary to Influenza-like upper respiratory infection resulting in hypoxemia, fever, tachycardia and improving with initiation of antivirals and antibiotics. 2. Urinary tract infection with cultures showing preliminary gram negative rods with final report pending with the patient being treated initially on Macrobid and failing outpatient management. 3. Metabolic encephalopathy secondary to #1 and #2 improving with treatment. 4. History of DVTs with elevated D-dimer on admission without any evidence of pulmonary emboli on CTA of the chest and the patient being on chronic Xarelto therapy. 5. Mild dehydration secondary to #1 improving with fluids. 6. Mild electrolyte imbalance that included initially hypokalemia and hypomagnesemia now back to baseline. 7. 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 8. History of hypertension. 9. Gastroesophageal reflux disease. 10. History of irritable bowel syndrome. 11. History of renal carcinoma with a right partial nephrectomy. 12. Seasonal allergies. 13. Hyperlipidemia. PLAN: Will continue with current Rocephin, azithromycin and Tamiflu. She is showing good improvement. Will await final culture results and target that antibiotic therapy as needed. At this point I do not see any reason to escalate her antibiotic coverage as she is showing clinical improvement. Hopefully be able to discharge tomorrow once those results are available. Until then will continue with pulmonary hygiene and chest percussive therapy. Until discharge will continue to monitor and treat as needed. #[id number] [facility]
[2018-04-02] MEDS: cefTRIAXone SODIUM 1 GM in SODIUM CHL 0.9% 50ML MIN-BAG+ 50 ML IVPB SCH (22:55)
[2018-04-03] MEDS: IPRATROPIUM/ALBUTEROL 3 ML VIAL NEB SCH (07:25)
[2018-04-03] MEDS: BIFIDOBACTERIUM INFANTIS 4 MG CAP PO SCH (09:54)
[2018-04-03] MEDS: OSELTAMIVIR 75 MG CAP PO SCH (09:55)
[2018-04-03] MEDS: RIVAROXABAN 10 MG TAB PO SCH (09:55)
[2018-04-03] MEDS: POTASSIUM CHLORIDE 10 MEQ TAB PO SCH (09:55)
[2018-04-03] MEDS: BENZONATATE PERLES 100 MG CAP PO SCH (09:55)
[2018-04-03 10:06] VITALS: BP 147/74; TEMP 98.4; O2SAT 96
--- NOTE | 2018-04-12 15:02 | DS ---
SUPERVISING PHYSICIAN: West Chacon MD ADMISSION DIAGNOSIS: 1. Influenza-like illness with hypoxemia with the patient showing to be febrile, tachycardiac. 2. Urinary tract infection/cystitis with culture pending and failed outpatient treatment on Macrobid. 3. Metabolic encephalopathy probably do to concurrent infections including Influenza- like illness and urinary tract infection. 4. History of deep venous thromboses with current elevated D-dimer but CTA without any indication of central pulmonary emboli. Unable to fully rule out peripheral emboli due to motion artifact. 5. Mild dehydration secondary to #1 exacerbating # 3 6. History of hypertension. 7. 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 8. Gastroesophageal reflux disease. 9. History of irritable bowel syndrome. 10. History of renal carcinoma with a right partial nephrectomy. 11. Seasonal allergies. 12. Hyperlipidemia. DISCHARGE DIAGNOSIS: 1. Left lower lobe pneumonia secondary to Influenza-like upper respiratory infection resulting in hypoxemia, fever, tachycardia and improving with initiation of antivirals and antibiotics. 2. Urinary tract infection with final urine culture results showing less than 10,000 colony forming units per mL with urogenital tana noted, no common pathogens. 3. Metabolic encephalopathy secondary to #1 and #2 improving with treatment. 4. History of DVTs with elevated D-dimer on admission without any evidence of pulmonary emboli on CTA of the chest and the patient being on chronic Xarelto therapy. 5. Mild dehydration secondary to #1 improving with fluids. 6. Mild electrolyte imbalance that included initially hypokalemia and hypomagnesemia now back to baseline. 7. 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 8. History of hypertension. 9. Gastroesophageal reflux disease. 10. History of irritable bowel syndrome. 11. History of renal carcinoma with a right partial nephrectomy. 12. Seasonal allergies. 13. Hyperlipidemia. REASON FOR ADMISSION: Ms. Garcia is an 87 year-old [facility] complaints of having a 24-hour history of shortness of breath, body aches, fever. Her daughter note that she has been in her usual health 24 hours prior and started feeling ill this morning. she was [id number] and diagnosed with UTI and started on Macrobid. A culture was sent and is pending. Her daughter and son also voiced that the patient seems to be mildly confused at times. She noted that even small amounts of exertional effort, she was short of breath and has had a nonproductive cough and history of increasing weakness. She denied any chest pain. She does have a history of previous DVT and is on chronic Xarelto. Initial workup in the Emergency Room included laboratory studies that showed a white count of 8,900 without a left shift. Blood gas analysis showed she had mild hypoxemia with a PO2 of 72, PCO2 of 35. ABG, pH 7.4, saturation 97% on 2 liters nasal cannula. Chemistries showed elevated BUN of 28, lactic acid normal at 1.2. Liver functions all normal as well as troponin at less than 0.02. Radiographic studies included a chest x-ray without any acute findings. Given that she had a mildly elevated D-dimer and past medical history with D-dimer showing to be 0.58, a CT of the chest to rule out a PE was completed and per radiology interpretation was noted the study was suboptimal, peripheral arteries limited secondary to motion artifact with no evidence of pulmonary embolisms within the main right left lobar or proximal segmental pulmonary arteries is noted. Lungs were noted to have no consolidation. There were small areas of linear atelectasis versus scarring in the left lower lobe. No pneumothorax, no pleural effusions noted. Vital signs on admission show she was febrile with temperature of 100.2, heart rate 106, blood pressure1 56/88. She was tachypneic at 27 and maintaining 02 saturations at room air on rest at 91%. After breathing treatments, she increased to 94% on 2 liters nasal cannula. She was quite hypertensive at times with blood pressure of 146/110. Given her influenza-like illness, influenza testing was done by PCR which was negative, however, she did have a left shift and symptoms consistent with possible influenza. Given her advanced age and underlying comorbidities with DVT and shortness of breath, Dr. Watson requested the patient be admitted or at least placed in observation for further treatment and evaluation to further rule out developing complications for influenza and possible developing left-sided pneumonia, community acquired. She was admitted in stable condition. LABORATORY: White count on admission 8,900 and at discharge was 7,600. Hemoglobin and hematocrit were stable and discharge were 10.4 and 31.4, respectively. Platelet count 162,000. Differential did show a left shift that resolved prior to discharge. Coagulation showed elevated D-dimer at 0.58. Blood gas analysis showed normal lungs except for just a mildly low pO2 72, pH 7.44. Chemistries showed normal electrolytes at admission. At discharge, potassium 4.2, sodium 137, magnesium 1.7. After replacement, it normalized to 2.0 prior to discharge. Liver functions all within normal limits. Troponin less than 0.02. Urinalysis showed trace lysed blood, small amount of bilirubin with microscopic showing 3 to 5 RBCs, 3 to 5 WBCs, 5 to 10 epithelials, rare bacteria. RADIOLOGY: Initially in the Emergency Room she had a single view chest x-ray showed no evidence of acute cardiopulmonary disease. Given her D-dimer, she had a CTA of the chest and per radiologic interpretation showed no evidence of pulmonary embolism within the main, right/left, lobar, or proximal segmental pulmonary arteries. No consolidations noted in the lungs. Small areas of linear atelectasis versus scarring in the left lower lobe and lingula present. No significant pleural effusions or pneumothorax. She had followup x-rays, the last one being on 04/02/18 prior to discharge and showed portable chest with right lung clear. Increased interstitial markings in the left lower lobe, retrocardiac region could represent atelectasis versus developing interstitial pneumonia or pneumonitis. No pleural effusion or pneumothorax is seen. She also had bilateral lower extremity Doppler studies to rule out DVT given the patient's history and per radiologic interpretation there was no evidence of DVT either on left or right. HOSPITAL COURSE: Ms. Garcia was admitted as noted for concerns for possible pulmonary embolism with hypoxia and questionable left lower lobe pneumonia as well as a possible urinary tract infection with the patient having some mild metabolic encephalopathy resulting in some mental status changes. She was found to be without any DVTs or PEs. She was already on Xarelto, which was continued. She was started on aggressive pulmonary hygiene as possible and antibiotic coverage with azithromycin, and Rocephin as well as antivirals including Tamiflu. She was given fluids as needed and showed good response to treatment. Therefore, she was transitioned to outpatient management. PLAN: Ms. Garcia was discharged on 04/03/18 with instructions to followup with Dr. Meredith at [facility] on 04/10/18 at 11:00 AM. She was to take her new medications as instructed and told to return to the hospital should she have any concerning symptoms. Medications at discharge includin. Albuterol nebulizers 2.5 mg q.4h. as needed, #30. 2. Tessalon Perles 100 mg 3 times a day, #20, as needed for cough. 3. Align 4 mg daily as needed. 4. Lomotil tablets 2.5 mg 4 times daily as needed for diarrhea. 5. Levaquin 500 mg daily, #7, no refills. All other medications were continued as prior to hospitalization. Diet was to advance as tolerated. Activity to increase as tolerated. DISPOSITION: The patient was discharged home. CONDITION AT DISCHARGE: Stable and improving. #[id number] [facility]
== END 2018-04-03 13:30 | disposition home health service (06) | DRG 193 ==
LOC: ER 17:46 → OBSVTOIN 23:05 → MS 23:05
PROVIDERS: ADMIT Nurse Practitioner Family; ATTEND Nurse Practitioner Family
PROC: B32T1ZZ Computerized Tomography (CT Scan) of Left Pulmonary Artery using Low Osmolar Contrast (ICD-10-PCS; principal; 2018-03-31)
PROC: B32S1ZZ Computerized Tomography (CT Scan) of Right Pulmonary Artery using Low Osmolar Contrast (ICD-10-PCS; 2018-03-31)
DX: J11.00 Influenza due to unidentified influenza virus with unspecified type of pneumonia (principal); G93.41 Metabolic encephalopathy; N39.0 Urinary tract infection, site not specified; E86.0 Dehydration; E87.6 Hypokalemia; E83.42 Hypomagnesemia; I10 Essential (primary) hypertension; K58.9 Irritable bowel syndrome, unspecified; K21.9 Gastro-esophageal reflux disease without esophagitis; E78.5 Hyperlipidemia, unspecified; Z95.828 Presence of other vascular implants and grafts; Z85.528 Personal history of other malignant neoplasm of kidney; Z86.718 Personal history of other venous thrombosis and embolism; Z79.02 Long term (current) use of antithrombotics/antiplatelets; Z88.0 Allergy status to penicillin

== ENCOUNTER → 2018-04-17 | Outpatient (CLI) | payer MEDICARE, OTHER | LOC: BFHH 13:14 | PROVIDERS: ATTEND Family Medicine | DX: N39.0 Urinary tract infection, site not specified (principal) ==

== ENCOUNTER 2018-05-01 14:47 | Inpatient (IN) | payer MEDICARE, OTHER ==
[2018-05-01] MEDS ORDERED: IPRATROPIUM/ALBUTEROL 3 ML VIAL NEB ONE (14:55)
--- NOTE | 2018-05-01 14:58 | ED.PDOC ---
History of Present Illness - General Chief Complaint: Respiratory Problem Time Seen by Provider: 05/01/18 14:54 Source: patient, family Exam Limitations: no limitations - History of Present Illness Initial Comments: Pt has had Severe cough and SOB x 3 days. Had recent pneumonia last month Severity: moderate Activities at Onset: none Possible Cause: unknown cause Improving Factors: rest Worsening Factors: movement Associated Symptoms: cough, weakness Respiratory Risk Factors: no cause identified Allergies/Adverse Reactions: Allergies Codeine Allergy (Intermediate, Verified 11/12/17 15:42) Penicillins Allergy (Intermediate, Verified 11/12/17 15:42) Hives Home Medications: Ambulatory Orders Potassium Chloride [Micro-K] 10 meq PO DAILYBK 07/10/15 Triamterene & Hydrochlorothiaz [Triamterene/Hydrochloroth 37.5-25 mg] 0.5 tab PO DAILY 07/10/15 Folic Acid-Vitamin B6-Vitamin [Folbee 2.5-25-1 mg] 1 tab PO DAILY 12/01/16 Gabapentin 300 mg PO BEDTIME PRN 12/01/16 Cholecalciferol [D 2000] 2,000 unit PO DAILY 11/12/17 Magnesium [Magnesium 250 mg] 1 tab PO DAILY 11/12/17 Rivaroxaban [Xarelto] 20 mg PO DAILY 11/12/17 Albuterol Sulfate Nebs [Proventil Nebs] 2.5 mg NEB Q4H PRN #30 vial 04/03/18 Benzonatate Perles [Tessalon Perles] 100 mg PO TID #20 cap 04/03/18 Bifidobacterium Infantis [Align] 4 mg PO DAILY cap 04/03/18 Diphenoxylate/Atropine [Lomotil Tab] 2.5 mg PO QID PRN #20 tab 04/03/18 levoFLOXacin [Levaquin] 500 mg PO DAILY 7 Days #7 tab 04/03/18 Review of Systems - Review of Systems Constitutional: States: malaise EENTM: States: no symptoms reported Respiratory: States: cough, short of breath. Denies: orthopnea Cardiology: Denies: chest pain, edema Gastrointestinal/Abdominal: Denies: abdominal pain, nausea, vomiting Genitourinary: States: no symptoms reported Musculoskeletal: States: no symptoms reported Skin: States: no symptoms reported Neurological: States: no symptoms reported Endocrine: States: no symptoms reported Hematologic/Lymphatic: States: no symptoms reported Past Medical History (General) - Patient Medical History Hx Seizures: No Hx Stroke: No Hx Dementia: No Hx Asthma: No Hx of COPD: No Hx Cardiac Disorders: Yes - Hx DVT Hx Congestive Heart Failure: No Hx Pacemaker: No Hx Hypertension: No Hx Thyroid Disease: No Hx Diabetes: No Hx Gastroesophageal Reflux: Yes Hx Renal Disease: No Hx Cancer: Yes - right kidney Hx of HIV: No Hx Hepatitis C: No Hx MRSA: No - Vaccination History Hx Tetanus, Diphtheria Vaccination: No Hx Influenza Vaccination: No Hx Pneumococcal Vaccination: No - Social History Hx Tobacco Use: No Hx Chewing Tobacco Use: No Hx Alcohol Use: No Hx Substance Use: No Hx Substance Use Treatment: No Hx Depression: No Hx Physical Abuse: No Hx Emotional Abuse: No Hx Suspected Abuse: No - Female History Patient : No Family Medical History - Family History Mother Family History: No Known Living Status: Hx Cardiac Disease: Yes - parents Hx Family Cancer: Yes - esophagus-brother Father Family History: No Known Living Status: Hx Cardiac Disease: Yes Physical Exam - Physical Exam General Appearance: Alert, Obvious distress Eyes, Ears, Nose, Throat Exam: PERRL/EOMI Neck: non-tender, full range of motion, supple Respiratory: respiratory distress, decreased breath sounds, rales, rhonchi Cardiovascular/Chest: normal peripheral pulses, regular rate, rhythm, no edema Gastrointestinal/Abdominal: normal bowel sounds, non tender, soft Extremity: normal range of motion, non-tender, normal inspection Neurologic: alert, normal mood/affect, oriented x 3 Skin Exam: normal color, warm/dry Lymphatic: no adenopathy Departure - Departure Clinical Impression: Pneumonia Qualifiers: Pneumonia type: due to unspecified organism Laterality: right Lung location: lower lobe of lung Qualified Code(s): J18.1 - Lobar pneumonia, unspecified organism Disposition: Admit Patient Condition: Good Departure Forms: ED Discharge - Pt. Copy, Patient Portal Self Enrollment Referrals: Angel Contreras MD [Primary Care Provider] - 1-2 Weeks Home Medications: Ambulatory Orders Potassium Chloride [Micro-K] 10 meq PO DAILYBK 07/10/15 Triamterene & Hydrochlorothiaz [Triamterene/Hydrochloroth 37.5-25 mg] 0.5 tab PO DAILY 07/10/15 Folic Acid-Vitamin B6-Vitamin [Folbee 2.5-25-1 mg] 1 tab PO DAILY 12/01/16 Gabapentin 300 mg PO BEDTIME PRN 12/01/16 Cholecalciferol [D 2000] 2,000 unit PO DAILY 11/12/17 Magnesium [Magnesium 250 mg] 1 tab PO DAILY 11/12/17 Rivaroxaban [Xarelto] 20 mg PO DAILY 11/12/17 Albuterol Sulfate Nebs [Proventil Nebs] 2.5 mg NEB Q4H PRN #30 vial 04/03/18 Benzonatate Perles [Tessalon Perles] 100 mg PO TID #20 cap 04/03/18 Bifidobacterium Infantis [Align] 4 mg PO DAILY cap 04/03/18 Diphenoxylate/Atropine [Lomotil Tab] 2.5 mg PO QID PRN #20 tab 04/03/18 levoFLOXacin [Levaquin] 500 mg PO DAILY 7 Days #7 tab 04/03/18 Decision To Admit - Decistion To Admit Decision to Admit Reason: Admit from ER Decision to Admit Date: 05/01/18 Decision to Admit Time: 16:34
--- NOTE | 2018-05-01 15:09 | RAD ---
EXAM DESCRIPTION: Chest,1 View CLINICAL HISTORY: 87 years Female, cough, SOB COMPARISON: Radiograph of the chest dated 04/02/2018. TECHNIQUE: AP radiograph of the chest was obtained. FINDINGS: Trachea is midline.The cardiomediastinal silhouette is normal in size. The pulmonary vasculature is within normal limits. Persistent right infrahilar airspace opacities which could represent pneumonia.No evidence of pleural effusions. IMPRESSION: Persistent right infrahilar airspace opacities, most like representing pneumonia. Electronically signed by: Denise Stephenson MD 05/01/2018 3:06 PM [facility]
[2018-05-01] MEDS ORDERED: levoFLOXacin 750MG IV 750 MG in PREMIX BAG 1 BAG IVPB ONE (15:13)
--- NOTE | 2018-05-01 17:20 | HP ---
SUPERVISING PHYSICIAN: Jefferson Stuart MD CHIEF COMPLAINT: Fever, chills HISTORY OF PRESENT ILLNESS: Ms. Garcia is an 87 year-old female patient who presented to the Emergency Room today complaining of some shortness of breath with subjective fever reported the last 3 days. She and her family report that in the last several days she has been having a productive cough and running a fever up to 102 at night. She was just treated in the hospital at [place] on 03/31/18 for left-sided pneumonia. She notes that her shortness of breath has been increasing and she sent to see Dr. Meredith in [facility]. He then referred her to the Emergency Room for further evaluation with concerns for developing healthcare acquired pneumonia. Laboratory studies showed she had a white count of 3,600 without a left shift. Chemistries showed a mildly elevated BUN of 37, AST was slightly elevated, otherwise everything else was within normal limits. Chest x-ray revealed a right infrahilar air-space opacity likely representing pneumonia. Between the discharge and this Emergency Room visit, she has been diagnosed with Grave's disease. She has had a reported weight loss of 3 pounds. She noted that after her recent hospitalization, she finished her doses of Levaquin post discharge and was feeling okay and felt near baseline levels but again, in the last 3 days started running a fever at night. The patient is now going to be admitted for continuation of treatment and evaluation of right-sided pneumonia, healthcare acquitted. She was admitted in stable condition. PAST MEDICAL HISTORY: 1. Recent diagnosis of Grave's disease. 2. Seasonal allergies. 3. Hyperlipidemia. 4. Hypertension. 5. 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 6. Gastroesophageal reflux disease. 7. Irritable bowel syndrome. 8. Renal carcinoma. 9. Herpes zoster infection. PAST SURGICAL HISTORY: 1. Cholecystectomy. 2. Hysterectomy. 3. Right partial nephrectomy for renal cancer. 4. IVC filter placement. 5. Bilateral knee surgeries. CURRENT MEDICATIONS: Listed below are medications that will be updated at time of admission. 1. Triamterene/Hydrochlorothiazide 37.5/25, one-half tablet daily. 2. Xarelto 20 mg daily. 3. Micro-K 10 mEq daily. 4. Magnesium 250 mg daily. 5. Gabapentin 300 mg at bedtime as needed. 6. Folic acid with vitamin B6, one tablet daily. 7. Vitamin D 2000 units daily. 8. Align 4 mg daily. 9. Albuterol nebulizer 2.5 mg every 4 hours as needed. ALLERGIES: PENICILLIN, ADVERSE REACTION TO CODEINE. She does not take NSAIDS due to renal carcinoma and partial nephrectomy. FAMILY HISTORY: Positive for asthma, congestive heart failure, coronary artery disease. SOCIAL HISTORY: The patient is , she lives in [place]. She denies any tobacco, alcohol or illicit drugs. REVIEW OF SYSTEMS: CONSTITUTIONAL: Positive for fevers, subjective up to 102 with chills, general malaise, weakness. HEENT: Negative for nasal congestion, sore throat, earache, vision changes. RESPIRATORY: Positive for shortness of breath, increasing cough, negative for any wheezing. CARDIAC: Negative for chest pains, palpitations, edema, syncopal episodes. GASTROINTESTINAL: Negative for abdominal pain, constipation, diarrhea, nausea or vomiting. . GENITOURINARY: Denies dysuria, hematuria, or polyuria. NEUROLOGICAL: Negative for any neurological deficits, seizures, ataxia. PHYSICAL EXAMINATION: VITAL SIGNS: Temperature 97.6, heart rate 79, blood pressure 137/78, respirations 20, showing 87% saturation on nasal cannula, up to 99% on nasal cannula after breathing treatment, 2 liters. Admission weight 57.2 kg which is down from 63.5 kg on last admission. GENERAL: The patient appears elderly, frail but comfortable and in no acute distress. HEENT: Tympanic membranes are clear bilaterally. Pharynx is pink, moist without lesions. There is no nasal congestion noted.. NECK: Supple, non-tender, full range of motion. No jugular venous distention. CHEST: Lung sounds are diminished towards both bases. Left side is clear to auscultation. Right side is notable for rhonchi but no rales or wheezes noted. CARDIOVASCULAR: Regular rate and rhythm without appreciable murmurs, rubs, or gallops. ABDOMEN: Soft, non-tender, positive bowel sounds. EXTREMITIES: No cyanosis, clubbing, or edema. NEUROLOGIC: She is alert and oriented x3. Cranial nerves II through XII are grossly intact. SKIN: Warm and dry. There was some notable petechial type hemorrhages to her left lower extremity, more so on the pretibial area with just a trace of edema on the left compared to the right which was without any edema but she has chronic edema to the left extremities from previous DVTs which look to me to be at baseline levels. LYMPHATIC: No notable lymphadenopathy. LABORATORY: CBC showed a white count of 3,600, hemoglobin 13.3, hematocrit 39.7, platelet count 179,000, differential showed to be without a left shift. Chemistries showed normal electrolytes, BUN 37, creatinine 1.25, AST slightly elevated at 58, other liver functions were showing to be within normal limits. BNP was normal at 82. Urinalysis was pending. Blood cultures pending. Influenza A and B by PCR was negative. RADIOLOGY: Chest x-ray, 2-view, per radiology interpretation showed persistent right infrahilar air-space opacity likely representing pneumonia. ASSESSMENT: 1. Right-sided perihilar pneumonia, likely healthcare acquired with the patient being in the hospital within the last 30 days and on Levaquin. Patient also with notable hypoxia on room air 2. History of DVTs, on Xarelto with a [place] filter in place. 3. History of hypertension. 4. History of chronic gastroesophageal reflux disease. 5. Recent diagnosis of Crohn's disease. 6. History of irritable bowel syndrome. 7. History of renal carcinoma with right partial nephrectomy. 8. Seasonal allergies. 9. Hyperlipidemia. PLAN: The patient is going to be admitted for treatment of right-sided pneumonia, healthcare acquired. Given that she has been in the hospital and certainly is advanced in age with high risk factors and comorbidities, will treat fairly aggressively with concerns for possible organisms to include strep pneumoniae and Pseudomonas. Her risk factors for MRSA are fairly low. Therefore, we will go ahead and continue with Levaquin and add Cefepime and dose both according to renal function. Will start her on some Tamiflu even though she is negative, as she has been running 102 fever for the last 3 days, given her comorbidities and underlying pneumonia. Will continue with DVT prophylaxis, include Xarelto. Will resume her medications that have been updated and verified. Will start her on q.i.d. Duoneb treatments and albuterol as needed. Will utilize oxygen as needed to maintain saturations above 92%. Will anticipate length of stay to be probably 2 to 3 days given her advanced age and multiple comorbidities and risk factors, she certainly requires more aggressive treatment. Will start her on antibiotic therapy if we do get a culture and anticipate hopefully being able to transition her to oral medications and transition to outpatient management within the next 2 to 3 days. Until then, we will continue to monitor and treat appropriately. [facility][id number] [facility]
[2018-05-01] MEDS ORDERED: ACETAMINOPHEN 325 MG TAB PO PRN (17:49)
[2018-05-01] MEDS ORDERED: ONDANSETRON INJ 4 MG/2 ML VIAL IV PRN (17:49)
[2018-05-01] MEDS ORDERED: ALBUTEROL SULFATE 2.5 MG/3 ML VIAL NEB PRN (17:49)
[2018-05-01] MEDS ORDERED: SODIUM CHLORIDE 0.9% (FLUSH) 10 ML SYG IV PRN (17:49)
[2018-05-01] MEDS ORDERED: IBUPROFEN 400 MG TAB PO PRN (17:49)
[2018-05-01] MEDS ORDERED: IV SET AND CAP CHANGE INJ INJ SCH (18:00)
[2018-05-01] MEDS ORDERED: SODIUM CHL 0.9% 50ML MIN-BAG+ 50 ML IVPB ONE ×2 (19:38→19:40)
[2018-05-01] MEDS ORDERED: CEFEPIME 2 GM VIAL ONE ×2 (19:40→19:41)
[2018-05-01] MEDS: IPRATROPIUM/ALBUTEROL 3 ML VIAL INH SCH (19:45)
[2018-05-01] MEDS: KCL 20MEQ/D5NS 1,000 ML IVS PRN (19:51)
[2018-05-01] MEDS: CEFEPIME 1 GM in SODIUM CHLORIDE 0.9% 50ML 50 ML IVPB SCH (19:51)
[2018-05-01] MEDS: BENZONATATE PERLES 100 MG CAP PO SCH (23:28)
[2018-05-02] MEDS: CEFEPIME 1 GM in SODIUM CHLORIDE 0.9% 50ML 50 ML IVPB SCH ×2 (06:33→18:14)
[2018-05-02] MEDS: PANTOPRAZOLE SODIUM IV 40 MG VIAL IV SCH (06:33)
--- NOTE | 2018-05-02 07:27 | RAD ---
Portable chest INDICATION: Pneumonia COMPARISON: May 01 IMPRESSION: Patient is rotated. Heart size normal for technique. No florid failure. No confluent infiltrate. 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 No large effusion or pneumothorax. Degenerative scoliosis. Electronically signed by: Mike Corbett MD 05/02/2018 7:24 AM [employer]
[2018-05-02] MEDS ORDERED: NON-FORMULARY MEDICATION 1 EA MIS (Rivaroxaban [Xarelto] 20 MG) PO SCH (09:00)
[2018-05-02] MEDS: IPRATROPIUM/ALBUTEROL 3 ML VIAL INH SCH ×4 (09:35→20:30)
[2018-05-02] MEDS: CHOLECALCIFEROL 2,000 IU TAB PO SCH (09:49)
[2018-05-02] MEDS: KCL 20MEQ/D5NS 1,000 ML IVS PRN ×2 (09:49→22:30)
[2018-05-02] MEDS: BIFIDOBACTERIUM INFANTIS 4 MG CAP PO SCH (09:50)
[2018-05-02] MEDS: RIVAROXABAN 10 MG TAB PO SCH (09:50)
[2018-05-02] MEDS: BENZONATATE PERLES 100 MG CAP PO SCH ×3 (09:51→20:48)
[2018-05-02] MEDS: [UNRECOGNIZED DRUG - OTHER] PO SCH (09:51)
[2018-05-02] MEDS: NON-FORMULARY MEDICATION 1 EA MIS (Triamterene & Hydrochlorothiaz [Triamterene/Hydrochloro PO SCH (09:52)
[2018-05-02] MEDS: CYPROHEPTADINE HCL TAB 4 MG PO SCH ×4 (09:53→20:48)
[2018-05-02] MEDS ORDERED: CYPROHEPTADINE HCL TAB 4 MG PO ONE ×2 (13:48→17:14)
[2018-05-02] MEDS ORDERED: levoFLOXacin 750MG IV 750 MG in PREMIX BAG 1 BAG IVPB SCH (15:30)
[2018-05-02] MEDS ORDERED: CEFEPIME 2 GM VIAL ONE ×2 (16:42→19:58)
[2018-05-02] MEDS ORDERED: SODIUM CHLORIDE 0.9% 50ML 50 ML ONE ×2 (16:43→19:59)
--- NOTE | 2018-05-02 19:52 | PN ---
DATE: 05/02/18 SUPERVISING PHYSICIAN: Jefferson Stuart M.D. SUBJECTIVE: The patient states she had quite a bit of coughing episodes last night and did not sleep well. She got a breathing treatment and Tessalon Perles, and about 45 minutes after that stopped coughing. I am not really sure which one of those was the one that helped with the coughing episode. Still does not feel very good this morning though. OBJECTIVE: Blood pressure 115/61, heart rate 87, respiratory rate 20, temperature 97.3, oxygen saturation 92%. GENERAL: Ms. Garcia is an 87 year-old female in no active distress currently. NEUROLOGIC: The patient is alert. LUNGS: Clear but diminished in the bases. CARDIOVASCULAR: Regular rate and rhythm. Normal S1 and S2. ABDOMEN: Soft. Positive bowel sounds. EXTREMITIES: Lower extremities have no edema. Pulses 2+. Capillary refill less than 2 seconds. RADIOLOGY: Chest x-ray with resolution of the infiltrate that was described yesterday. White count 3.3, hemoglobin 11.8, hematocrit 34.9, platelet count 170. Chemistry is unremarkable. ASSESSMENT: 1. Right perihilar pneumonia which is concerning for HCAP. 2. History of DVT on Xarelto. 3. History of hypertension. 4. History of gastroesophageal reflux disease. 5. Crohn's disease. 6. History of right partial nephrectomy secondary to renal cell carcinoma. PLAN: Objectively the patient is not getting any worse. Her white counts is a little bit on the low side but she does not appear to be septic. Chest x-ray indicates near resolution of her infiltrate. However, clinically she does not look any better so will continue the current medications and antibiotics, and reevaluate tomorrow and see if she has a better night. Monitor her cultures. Deescalate when possible. #[id number] [facility]
[2018-05-03] MEDS ORDERED: BENZOCAINE-MENTH LOZ (CEPACOL) 1 EA LOZ MT PRN (04:00)
[2018-05-03] MEDS: PANTOPRAZOLE SODIUM IV 40 MG VIAL IV SCH (06:12)
[2018-05-03] MEDS: CEFEPIME 1 GM in SODIUM CHLORIDE 0.9% 50ML 50 ML IVPB SCH ×2 (06:13→17:55)
[2018-05-03] MEDS ORDERED: levoFLOXacin 250MG IV 50 ML IVPB ONE (07:56)
--- NOTE | 2018-05-03 08:00 | RAD ---
EXAM DESCRIPTION: Chest,1 View CLINICAL HISTORY: pneumonia COMPARISON: Chest radiograph dated May 02, 2016 TECHNIQUE: Single upright portable frontal view of the chest FINDINGS: Calcific atherosclerosis and tortuosity noted of the thoracic aorta. Cardiac silhouette shows upper limits of normal heart size. Pulmonary vascularity is within normal limits. Lungs show no confluent infiltrates. Costophrenic angles are sharp. No pneumothorax. Degenerative scoliosis. Osteoporosis of the shoulders, left greater than right. IMPRESSION: 1. No acute cardiopulmonary process. 2. Other findings as above. Electronically signed by: Marco Tolentino MD 05/03/2018 7:58 AM [facility]
[2018-05-03] MEDS ORDERED: levoFLOXacin 250MG IV 250 MG in PREMIX BAG 1 BAG IVPB SCH (09:00)
[2018-05-03] MEDS ORDERED: CHLORPHENIRAMINE W/HYDROCODONE 5 ML UD PO PRN (09:14)
[2018-05-03] MEDS: IPRATROPIUM/ALBUTEROL 3 ML VIAL INH SCH ×4 (09:15→20:51)
[2018-05-03] MEDS ORDERED: methylPREDNISolone SODIUM SUC 40 MG/ML VIAL IV ONE (09:16)
[2018-05-03] MEDS: CHOLECALCIFEROL 2,000 IU TAB PO SCH (09:16)
[2018-05-03] MEDS: NON-FORMULARY MEDICATION 1 EA MIS (Triamterene & Hydrochlorothiaz [Triamterene/Hydrochloro PO SCH (09:17)
[2018-05-03] MEDS: RIVAROXABAN 10 MG TAB PO SCH (09:17)
[2018-05-03] MEDS: BIFIDOBACTERIUM INFANTIS 4 MG CAP PO SCH (09:17)
[2018-05-03] MEDS: BENZONATATE PERLES 100 MG CAP PO SCH ×3 (09:17→20:03)
[2018-05-03] MEDS: CYPROHEPTADINE HCL TAB 4 MG PO SCH ×4 (09:19→20:03)
[2018-05-03] MEDS ORDERED: CYPROHEPTADINE HCL TAB 4 MG PO ONE ×3 (09:19→16:51)
[2018-05-03] MEDS: [UNRECOGNIZED DRUG - OTHER] PO SCH (09:19)
--- NOTE | 2018-05-03 11:06 | PN ---
SUPERVISING PHYSICIAN: Kendrick Stuart MD DATE: 05/03/18 SUBJECTIVE: The patient states she still had coughing episodes last night to where she could not sleep. Yesterday afternoon, she did get up and walk around and was doing a little bit better. She feels like she is pretty worn out due to the lack of sleep and coughing episodes overnight. OBJECTIVE: VITAL SIGNS: Blood pressure 113/61. Heart rate 79. Respiratory rate 18. Temperature 97.7. Oxygen saturation 97%. GENERAL: Ms. Garcia is an 87-year-old female in no distress currently. HEENT: Normocephalic, atraumatic. Pupils are equal and reactive. No nasal drainage. Throat with moist mucosa. NECK: Supple. Midline trachea. No jugular venous distention. CHEST: Symmetrical with equal rise and fall of the chest with inspiration and expiration. LUNGS: Lung sounds with a little raspy wheeze posteriorly today. This is bilateral and mild and she has good air movement. CARDIOVASCULAR: Regular rate and rhythm. Normal S1, S2. ABDOMEN: Soft. Positive bowel sounds. EXTREMITIES: Lower extremities with no edema. Pulses 2+. Capillary refill is less than 2 seconds. LABORATORY: White count 4.1, hemoglobin 11.6, hematocrit 35.2, platelet count 182. Sodium 139, potassium 3.8, chloride 111, CO2 21, BUN 20, creatinine 1.17. Glucose 93, calcium 9.2. Chest x-ray with no acute consolidation. ASSESSMENT: 1. Right perihilar pneumonia which is concerning for healthcare associated pneumonia. 2. History of deep venous thrombosis, on Xarelto. 3. History of hypertension. 4. History of gastroesophageal reflux disease. 5. Crohn's disease. 6. History of right partial nephrectomy secondary to renal cell carcinoma. PLAN: Overall, clinically, she does have a little bit of improvement, but due to the lack of sleep, she feels pretty worn out. Continue physical therapy. Due to the wheeze today, I am going to give one small dose of Solu-Medrol at 20 mg. I am also going to order Tussionex p.r.n. b.i.d. to be given and this might better control her coughing episodes at night. Due to stable labs and x-rays for two consecutive days, I will not repeat those tomorrow. [facility][id number] [facility]
[2018-05-03] MEDS ORDERED: SODIUM CHLORIDE 0.9% 50ML 50 ML ONE ×2 (12:30→19:21)
[2018-05-03] MEDS ORDERED: CEFEPIME 2 GM VIAL ONE ×2 (12:30→19:20)
[2018-05-03] MEDS: KCL 20MEQ/D5NS 1,000 ML IVS PRN (12:34)
[2018-05-03] MEDS: CHLORPHENIRAMINE W/HYDROCODONE 5 ML UD PO PRN (19:53)
[2018-05-04] MEDS: KCL 20MEQ/D5NS 1,000 ML IVS PRN (01:03)
[2018-05-04] MEDS: PANTOPRAZOLE SODIUM IV 40 MG VIAL IV SCH ×2 (05:51→06:01)
[2018-05-04] MEDS: CEFEPIME 1 GM in SODIUM CHLORIDE 0.9% 50ML 50 ML IVPB SCH ×2 (05:52→06:02)
[2018-05-04] MEDS: IPRATROPIUM/ALBUTEROL 3 ML VIAL INH SCH ×2 (08:18→14:00)
[2018-05-04] MEDS ORDERED: SODIUM CHLORIDE 0.9% 50ML 50 ML ONE (08:37)
[2018-05-04] MEDS ORDERED: CEFEPIME 2 GM VIAL ONE (08:37)
[2018-05-04] MEDS ORDERED: levoFLOXacin 750MG IV 750 MG in PREMIX BAG 1 BAG IVPB SCH (09:00)
[2018-05-04] MEDS: BENZONATATE PERLES 100 MG CAP PO SCH ×2 (09:26→15:38)
[2018-05-04] MEDS: CHOLECALCIFEROL 2,000 IU TAB PO SCH (09:26)
[2018-05-04] MEDS: BIFIDOBACTERIUM INFANTIS 4 MG CAP PO SCH (09:26)
[2018-05-04] MEDS: CYPROHEPTADINE HCL TAB 4 MG PO SCH ×2 (09:26→13:41)
[2018-05-04] MEDS: RIVAROXABAN 10 MG TAB PO SCH (09:26)
[2018-05-04] MEDS: NON-FORMULARY MEDICATION 1 EA MIS (Triamterene & Hydrochlorothiaz [Triamterene/Hydrochloro PO SCH (09:31)
[2018-05-04] MEDS: [UNRECOGNIZED DRUG - OTHER] PO SCH (09:36)
--- NOTE | 2018-05-04 10:58 | PN ---
DATE: 05/04/18 SUBJECTIVE: This morning, the patient feels like her breathing is doing okay, she is just extremely exhausted and tired from very little sleep the last several nights. This is mostly due to coughing fits that occur, when she states she feels like she needs to cough up phlegm, but nothing will come out. Otherwise, she states she feels well and pretty much back to baseline. She is currently not on any sort of oxygen. Per the , she has two family members who help her, and also already have home with physical therapy that come out already in place. REVIEW OF SYSTEMS: GENERAL: Denies any acute distress currently, doing well overall. CHEST: Intermittent cough, mostly nonproductive but can produce small amounts of clear to white sputum. CARDIOVASCULAR: Denies chest pain, denies palpitations, denies peripheral edema. ABDOMEN: Denies abdominal pain, normal bowel movements. NEUROLOGIC: No confusion, no headaches. EXTREMITIES: No new weaknesses or muscular deficits. OBJECTIVE: VITAL SIGNS: Temperature 98.7. Heart rate 81. Blood pressure 117/70. Respiratory rate 20. O2 saturation 97% on room air. GENERAL: No acute distress, lying comfortably in bed, ready to fall asleep, but easily conversive and within normal limits. CHEST: Inducible coughing fit with large inspiration with normal effort of inspiration, some expiratory wheezes, minimal at best, diffuse intermittent rales, resolved with coughing. CARDIOVASCULAR: Normal rate and rhythm, no murmur, no peripheral edema. ABDOMEN: Soft, nontender, no masses. NEUROLOGIC: Alert and oriented to person, place and time, no confusion, no focal deficits. LABORATORY: No new labs for 05/04/18. MICROBIOLOGY: Flu negative, blood cultures negative x2 days. IMAGING: Chest x-ray from 05/03/18: No acute consolidation. ASSESSMENT: 1. Right perihilar pneumonia which is concerning for healthcare associated pneumonia, resolved. 2. History of deep venous thrombosis, on Xarelto. 3. History of hypertension. 4. History of gastroesophageal reflux disease. 5. Crohn's disease. 6. History of right partial nephrectomy secondary to renal cell carcinoma. PLAN: The patient is doing well overall, extremely tired from coughing fits and having difficulty sleeping in the hospital. Given her chest x-ray which shows resolution of a potential right perihilar infiltrate, we can continue p.o. Levaquin today, stopping IV Cefepime, and work towards discharging home. I confirmed with the that she has help at home as well as home health/physical therapy that works with her often. She will likely improve a lot faster if she is able to rest adequately and get appropriate amount of sleep at home in a comfortable setting. We will continue Levaquin to reach a total of 7 days of treatment and she can continue her home medications she was admitted with. We will likely discharge later today, 05/04/18. #[id number] [facility]
[2018-05-04] MEDS: CHLORPHENIRAMINE W/HYDROCODONE 5 ML UD PO PRN (13:15)
[2018-05-04 14:49] VITALS: BP 110/63; TEMP 98.6; O2SAT 98
--- NOTE | 2018-05-04 16:35 | DS ---
ADMISSION DIAGNOSIS: 1. Right-sided perihilar pneumonia, likely healthcare acquired with the patient being in the hospital within the last 30 days and on Levaquin. Patient also with notable hypoxia on room air 2. History of DVTs, on Xarelto with a [place] filter in place. 3. History of hypertension. 4. History of chronic gastroesophageal reflux disease. 5. Recent diagnosis of Crohn's disease. 6. History of irritable bowel syndrome. 7. History of renal carcinoma with right partial nephrectomy. 8. Seasonal allergies. 9. Hyperlipidemia. HISTORY OF PRESENT ILLNESS: Ms. Garcia is an 87 year-old female patient who presented to the Emergency Room today complaining of some shortness of breath with subjective fever reported the last 3 days. She and her family report that in the last several days she has been having a productive cough and running a fever up to 102 at night. She was just treated in the hospital at [place] on 03/31/18 for left-sided pneumonia. She notes that her shortness of breath has been increasing and she sent to see Dr. Meredith in [facility]. He then referred her to the Emergency Room for further evaluation with concerns for developing healthcare acquired pneumonia. Laboratory studies showed she had a white count of 3,600 without a left shift. Chemistries showed a mildly elevated BUN of 37, AST was slightly elevated, otherwise everything else was within normal limits. Chest x-ray revealed a right infrahilar air-space opacity likely representing pneumonia. Between the discharge and this Emergency Room visit, she has been diagnosed with Grave's disease. She has had a reported weight loss of 3 pounds. She noted that after her recent hospitalization, she finished her doses of Levaquin post discharge and was feeling okay and felt near baseline levels but again, in the last 3 days started running a fever at night. The patient is now going to be admitted for continuation of treatment and evaluation of right-sided pneumonia, healthcare acquitted. She was admitted in stable condition. HOSPITAL COURSE: Ms. Garcia was admitted to the hospital with a potential right hilar infiltrate, with some new onset slight hypoxemia. She was started on IV Cefepime and Levaquin, as well as pulmonary hygiene and standard treatments for pneumonia. Throughout her stay she had a negative flu as well as negative blood cultures, and improved to the point where chest x-ray no longer showed any infiltrates. Given that she was started on antibiotics, she was started on an IV proton pump inhibitor, this was transitioned to p.o. the day of discharge. She did very well with physical therapy, and they endorsed that she was safe to go home, after which she also does have home health with physical therapy currently in place. VITAL SIGNS: Temperature 98.6, blood pressure 110/63, pulse 81, respiratory rate 20, O2 sats 98% on room air. LABORATORY AND IMAGING: White blood cell count remained low to normal throughout the entire stay, electrolytes remained stable throughout her admission. She did have a slight reduction in GFR, at 33 at discharge, but at baseline for her BUN and creatinine at about 20/1.17. BNP was at 82. Chest x-ray from admission showed possible right perihilar infiltrates, this was resolved upon x-ray done on 05/03/18. DISCHARGE DIAGNOSES: 1. Right perihilar pneumonia, potential HCAP. 2. History of deep venous thrombosis on Xarelto chronically. 3. Chronic hypertension. 4. Chronic gastroesophageal reflux disease. 5. Chronic lung disease. 6. History of right partial nephrectomy secondary to renal cell carcinoma. PLAN: The patient progressed very well and required no additional oxygen supplementation. We transitioned her antibiotics to p.o. form to continue treatment at home for a total of 14 days of treatment. She will have followup with her primary care physician, and will continue to do physical therapy with her current home health company. She was given precautions along with her on when to return to clinic or the E. R. Will give her enough Protonix to last a couple of weeks to cover any GI prophylaxis for any ulcers. #[id number] [facility]
[2018-05-05] MEDS ORDERED: PANTOPRAZOLE SODIUM TAB 40 MG PO SCH (06:30)
== END 2018-05-04 16:00 | disposition home or self-care (01) | DRG 194 ==
LOC: ER 14:47 → MS 17:18
PROVIDERS: ADMIT Nurse Practitioner Family; ATTEND Family Medicine
DX: J18.9 Pneumonia, unspecified organism (principal); K50.90 Crohn's disease, unspecified, without complications; Y95 Nosocomial condition; E05.00 Thyrotoxicosis with diffuse goiter without thyrotoxic crisis or storm; E78.5 Hyperlipidemia, unspecified; I10 Essential (primary) hypertension; K21.9 Gastro-esophageal reflux disease without esophagitis; K58.9 Irritable bowel syndrome, unspecified; J30.2 Other seasonal allergic rhinitis; Z86.718 Personal history of other venous thrombosis and embolism; Z85.528 Personal history of other malignant neoplasm of kidney; Z90.5 Acquired absence of kidney; Z79.01 Long term (current) use of anticoagulants; Z88.0 Allergy status to penicillin

== ENCOUNTER → 2018-06-05 | Outpatient (CLI) | payer MEDICARE, OTHER ==
--- NOTE | 2018-06-06 08:13 | US ---
EXAM DESCRIPTION: Extremity,Lower He Arteries: Ultrasound. CLINICAL HISTORY: M79.7 COMPARISON: None. TECHNIQUE: Doppler evaluation of the bilateral lower extremity arterial flow waveforms and velocities. FINDINGS: Arterial waveforms in the right lower extremity are triphasic and biphasic. Arterial waveforms in the left lower extremity are triphasic and biphasic.. Comments: No significant plaque seen. IMPRESSION: Doppler ultrasound evaluation of the bilateral lower extremity arterial systems showing no evidence of significant atherosclerotic occlusive disease. Electronically signed by: Blayne Sanchez MD 06/06/2018 8:10 AM CDT
== END ==
LOC: US 13:30
PROVIDERS: ATTEND Nurse Practitioner Family
DX: M79.7 Fibromyalgia (principal)

== ENCOUNTER → 2018-06-06 | Outpatient (CLI) | payer MEDICARE, OTHER ==
--- NOTE | 2018-06-07 14:05 | RAD ---
EXAM DESCRIPTION: Lumbar Spine 3 Views: CR/DR/x-ray. CLINICAL HISTORY: 87 years Female M79.604 COMPARISON: Lumbar TECHNIQUE: 3 Views lumbar spine. AP Lateral lumbosacral lateral spot L5-S1. FINDINGS: Lumbar type vertebra: 5. Transitional vertebrae: None. Disc spaces: Narrowing especially L2-3 and L3-4. Facet joints: Multiple levels of arthrosis especially on the right at L2-3 and L3-4 and on the left at L5-S1. Compression deformities: None. Bone Density: Decreased. Alignment: Lumbar levoscoliosis. Abdomen: Inferior vena cava filter apex at the level of the L1 vertebral body. Atherosclerotic calcification of the aorta. Surgical clips right upper quadrant. IMPRESSION: Decreased bone density. No compression type vertebral body fractures. Increased spondylosis on the right with levoscoliosis. Electronically signed by: Blayne Sanchez MD 06/07/2018 2:02 PM CDT
== END ==
LOC: LAB.O 16:05
PROVIDERS: ATTEND Family Medicine
DX: M47.896 Other spondylosis, lumbar region (principal); M41.86 Other forms of scoliosis, lumbar region; M85.88 Other specified disorders of bone density and structure, other site

== ENCOUNTER → 2018-06-22 | Outpatient (CLI) | payer MEDICARE, OTHER ==
--- NOTE | 2018-06-22 16:47 | MRI ---
EXAM DESCRIPTION: Lumbar Spine w/o Contrast CLINICAL HISTORY: 87 years Female, PAIN IN RT LEG COMPARISON: None available. TECHNIQUE: Multiplanar multiecho imaging of the lumbar spine was performed without intravenous contrast administration. FINDINGS: Straightening of the normal lordotic curvature of the lumbar spine is noted. There is grade 1 anterolisthesis of L3 over L4 secondary to facet arthropathy. Levoscoliotic curvature of the lumbar spine is noted. The vertebral body heights are well-maintained with no acute compression deformity. Multilevel intervertebral disc space narrowing is noted. The conus medullaris terminates at T12-L1 intervertebral disc space. The visualized spinal cord demonstrates no signal abnormality. L1-L2: Diffuse disc bulge and facet arthropathy with no central canal stenosis. There is moderate to severe bilateral neural foraminal narrowing. L2-L3: Disc desiccation and loss of disc height. Mild retrolisthesis of L2 over L3 is noted. Posterior disc osteophyte complex and bilateral facet arthropathy is identified. The hypertrophied right facet abuts the right-sided nerve roots and also results in moderate right lateral recess narrowing. Moderate bilateral neural foraminal narrowing is identified. L3-L4: Grade 1 Anterolisthesis of L3 over L4 is noted. There is severe central canal stenosis secondary to disc bulge, bilateral facet arthropathy and ligamentum flavum hypertrophy. Also there is severe right and moderate left neural foraminal narrowing. L4-L5: Diffuse disc bulge, ligament of flavum hypertrophy and facet arthropathy with no significant central canal stenosis. There is mild bilateral neural foraminal narrowing. L5-S1: Diffuse disc bulge and facet arthropathy with no central canal stenosis. There is mild right and moderate left neural foraminal narrowing secondary to facet arthropathy. The visualized prevertebral and paravertebral soft tissues appear unremarkable. IMPRESSION: Multilevel degenerative disc disease and facet arthropathy is noted throughout the lumbar spine with changes worse at L3-L4 level. Significant degenerative changes are also identified at remainder of the levels as detailed above. Electronically signed by: Denise Stephenson MD 06/22/2018 4:45 PM CDT
== END ==
LOC: MRI 10:00
PROVIDERS: ATTEND Family Medicine
DX: M51.36 Other intervertebral disc degeneration, lumbar region (principal); M47.896 Other spondylosis, lumbar region

== ENCOUNTER 2018-08-30 00:38 | Inpatient (IN) | payer MEDICARE, OTHER ==
[2018-08-30] MEDS ORDERED: methylPREDNISolone SODIUM SUC 125 MG/2 ML VIAL IV ONE (01:35)
[2018-08-30] MEDS ORDERED: IPRATROPIUM/ALBUTEROL 3 ML VIAL NEB ONE ×3 (01:35→01:36)
--- NOTE | 2018-08-30 01:53 | RAD ---
CLINICAL HISTORY: dyspnea COMPARISON: May 03, 2018 TECHNIQUE: XR CHEST 1 VIEW 08/30/2018 1:36 AM CDT FINDINGS: Cardiac silhouette is normal in size. Lungs are clear without consolidation, atelectasis, mass or edema. There is no pleural effusion. There is no pneumothorax. There are no acute osseous findings. IMPRESSION: Clear lungs. Electronically signed by: Cole Torres MD 08/30/2018 1:51 AM CDT
[2018-08-30] MEDS ORDERED: SODIUM CHL 0.9% 50ML VIAL 3 ML, ALBUTEROL SULFATE NEBS 15 MG NEB ONE ×2 (02:51)
--- NOTE | 2018-08-30 02:52 | ED.PDOC ---
History of Present Illness - General Chief Complaint: Respiratory Problem Stated Complaint: cough/wheezing x 2 days Time Seen by Provider: 08/30/18 00:57 Source: patient, RN notes reviewed, Vital Signs reviewed, family Exam Limitations: no limitations - History of Present Illness Initial Comments: 87 yo female from Assisted Living c/o dyspnea & wheezing. Timing/Duration: days Severity: moderate Activities at Onset: none Possible Cause: occasional episodes, allergen exposure Improving Factors: nothing Worsening Factors: nothing Associated Symptoms: cough, wheezing Respiratory Risk Factors: no cause identified Allergies/Adverse Reactions: Allergies Codeine Allergy (Intermediate, Verified 11/12/17 15:42) Penicillins Allergy (Intermediate, Verified 11/12/17 15:42) Hives Home Medications: Ambulatory Orders Potassium Chloride [Micro-K] 10 meq PO DAILYBK 07/10/15 Folic Acid-Vitamin B6-Vitamin [Folbee 2.5-25-1 mg] 1 tab PO DAILY 12/01/16 Gabapentin 300 mg PO BID PRN 12/01/16 Magnesium [Magnesium 250 mg] 1 tab PO DAILY 11/12/17 Rivaroxaban [Xarelto] 20 mg PO DAILY 11/12/17 Albuterol Sulfate Nebs [Proventil Nebs] 2.5 mg NEB Q4H PRN #30 vial 04/03/18 Methimazole 20 mg PO BID 05/01/18 Review of Systems - Review of Systems Constitutional: States: no symptoms reported EENTM: States: no symptoms reported Respiratory: States: see HPI Cardiology: States: no symptoms reported Gastrointestinal/Abdominal: States: no symptoms reported Genitourinary: States: no symptoms reported Musculoskeletal: States: no symptoms reported Skin: States: rash Neurological: States: no symptoms reported Hematologic/Lymphatic: States: no symptoms reported Past Medical History (General) - Patient Medical History Hx Seizures: No Hx Stroke: No Hx Dementia: No Hx Asthma: No Hx of COPD: No Hx Cardiac Disorders: Yes - Hx DVT Hx Congestive Heart Failure: No Hx Pacemaker: No Hx Hypertension: No Hx Thyroid Disease: No Hx Diabetes: No Hx Gastroesophageal Reflux: Yes Hx Renal Disease: No Hx Cancer: Yes - right kidney Hx of HIV: No Hx Hepatitis C: No Hx MRSA: No - Vaccination History Hx Tetanus, Diphtheria Vaccination: No Hx Influenza Vaccination: No Hx Pneumococcal Vaccination: No Immunizations Comment: unable to obtain - Social History Hx Tobacco Use: No Hx Chewing Tobacco Use: No Hx Alcohol Use: No Hx Substance Use: No Hx Substance Use Treatment: No Hx Depression: No Hx Physical Abuse: No Hx Emotional Abuse: No Hx Suspected Abuse: No - Activities of Daily Living Group Home/Assisted Living (if applicable):: [place] - Female History Patient is a Female of Child Bearing Age (10 -59 yrs old): No Patient : No Family Medical History - Family History Mother Family History: No Known Living Status: Hx Cardiac Disease: Yes - parents Hx Family Cancer: Yes - esophagus-brother Father Family History: No Known Living Status: Hx Cardiac Disease: Yes Physical Exam - Physical Exam General Appearance: Alert, Comfortable, No apparent distress Eyes, Ears, Nose, Throat Exam: normal ENT inspection Neck: supple, normal inspection Respiratory: decreased breath sounds, wheezing Cardiovascular/Chest: regular rate, rhythm, no JVD Gastrointestinal/Abdominal: non tender, soft Extremity: no calf tenderness, normal capillary refill, pedal edema Neurologic: alert, normal mood/affect, oriented x 3 Skin Exam: normal color, warm/dry, rash - diffuse to torso, reddened plaques Progress - Progress Progress: 08/30/18 02:49 Says she feels better & back to her recent baseline. Her wheezing is less severe on exam but still prominent. 08/30/18 04:36 Sleeping but rouses easily. Says she is not dyspneic but I can still hear breathing without a stethoscope. Prolonged expiratory phase. She has just finished her 1 hour neb. Will observe for an hour & re-assess. 08/30/18 06:07 Basically unchanged. SaO2 97% on RA. - Results/Orders Results/Orders: WBC 6 Hgb 12 K 3.1 Tr<0.02 - EKG/XRAY/CT EKG: Sinus, nonspecific ST T wave Chg - NSR @ 74; nml axis, prolonged QT, flat T waves, nml ST segments & QRS XRAY: chest - no acute process CT Ordered: No CT Interpretation Call Back: No - Consult/PCP Time Called: 06:07 Consult/PCP: Echo Henriquez NP Departure - Departure Clinical Impression: Acute bronchospasm, Rash Time of Disposition: 06:08 Disposition: Admit Patient Condition: Fair Home Medications: Ambulatory Orders Potassium Chloride [Micro-K] 10 meq PO DAILYBK 07/10/15 Folic Acid-Vitamin B6-Vitamin [Folbee 2.5-25-1 mg] 1 tab PO DAILY 12/01/16 Gabapentin 300 mg PO BID PRN 12/01/16 Magnesium [Magnesium 250 mg] 1 tab PO DAILY 11/12/17 Rivaroxaban [Xarelto] 20 mg PO DAILY 11/12/17 Albuterol Sulfate Nebs [Proventil Nebs] 2.5 mg NEB Q4H PRN #30 vial 04/03/18 Methimazole 20 mg PO BID 05/01/18 Decision To Admit - Decistion To Admit Decision to Admit Reason: Admit from ER Decision to Admit Date: 08/30/18 Decision to Admit Time: 06:08
[2018-08-30] MEDS ORDERED: SODIUM CHLORIDE 0.9% 50 ML VIAL ONE (03:02)
[2018-08-30] MEDS ORDERED: ALBUTEROL SULFATE 2.5 MG/3 ML VIAL NEB ONE ×6 (03:03→06:01)
--- NOTE | 2018-08-30 07:20 | HP ---
SUPERVISING PHYSICIAN: West Chacon MD CHIEF COMPLAINT: Wheezing. HISTORY OF PRESENT ILLNESS: This is an 87 year-old patient who came to the Emergency Room for coughing and wheezing times two days. About two weeks ago she moved into [facility] and about a week prior to that she had an erythematous rash on her chest and upper back. It was pruritic and erythematous but there was no drainage or blisters. She saw Dr. Solorzano several weeks ago and he was concerned that there was something else going on and she was recently diagnosed with Graves disease and he wanted her to followup with her websphere commerce developer, Dr. Jackson, in [place] prior to him removing the lesion. An appointment was made with Dr. Jackson and she is to see her on September 21. In the last few days she has had increased itching and the rash has now extended down her posterior side to her upper buttocks. She has also started having some coughing and wheezing. There has been no fever and her vital signs have remained stable. It is to be noted that her room in [facility] is right next to the laundry room and they feel it is somewhat humid in that area. She does have a history of seasonal allergies and it has been discussed that she have testing to see if she has asthma, She was tested at some point and they found that it was more gastroesophageal reflux disease associated but she does have seasonal allergies and occasionally does take breathing treatments. She was exposed to secondhand smoke for many years from her , although he several years ago and he quit smoking about 20 years prior to his . In the Emergency Room, she had expiratory wheezes but her vital signs were mostly stable with temperature of 96.7, heart rate of 70, blood pressure 194/86. Respiratory rate 20, 02 saturation 94%, it did drop as low a 93% and her blood pressure did improve to 123/74. She received multiple breathing treatments in the Emergency Room. She also received 125 mg of Solu-Medrol. She also had lab done. WBCs were 5.6 with a hemoglobin of 12.3 and hematocrit of 36.3. Her sodium was 138, potassium 3.2, chloride 99, creatinine kinase 2.34. She was given some supplemental potassium. Chest x-ray showed clear lungs. Her urinalysis showed a trace of lysed urine blood, small amount of leukocyte esterase, 40 to 50 WBCs and 3+ urine bacteria. I was called for hospital admission. PAST MEDICAL HISTORY: 1. Diagnosis of Grave's disease approximately 6 months ago. 2. Seasonal allergies. 3. 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 5. Gastroesophageal reflux disease. 6. Irritable bowel syndrome. 7. Renal carcinoma with a partial right nephrectomy. 8. Herpes zoster infection. 9. Questionable mild intermittent asthma. PAST SURGICAL HISTORY: 1. Cholecystectomy. 2. Hysterectomy. 3. Right partial nephrectomy for renal cancer. 4. IVC filter placement. 5. Bilateral knee surgeries. CURRENT MEDICATIONS: 1. Albuterol nebs. 2. Folic acid, vitamin D6. 3. Magnesium. 4. Cyproheptadine 5. Gabapentin. 6. Hydrochlorothiazide. 7. Methimazole. 8. Potassium chloride. 9. Xarelto. ALLERGIES: PENICILLIN AND CODEINE. She does not take NSAIDS due to renal carcinoma and partial nephrectomy. FAMILY HISTORY: Positive for asthma, congestive heart failure and coronary artery disease. SOCIAL HISTORY: She is . She lives at [facility] here in [place]. She denies any tobacco, alcohol or ETOH use. She does have a significant history of secondhand smoke. REVIEW OF SYSTEMS: GENERAL: Negative for fever, chills or weight changes. HEENT Negative for sinus symptoms, ear pain, vision changes or sore throat. RESPIRATORY: Positive for nonproductive cough and audible wheezing, negative for shortness of breath. CARDIAC: Negative for chest pain, palpitations or tachycardia. GASTROINTESTINAL: Negative for nausea, vomiting, diarrhea, constipation or abdominal pain. GENITOURINARY: Negative for hematuria, dysuria or polyuria. SKIN: Positive for pruritic erythematous rash as well as several small lesions that need to be removed by Dr. Solorzano. NEUROLOGIC: Negative for headache, dizziness, or seizures. PHYSICAL EXAMINATION: VITAL SIGNS: Temperature 97.6, heart rate 76, blood pressure 139/66, respiratory rate 16, 02 saturation 99% on two liters nasal cannula. GENERAL: This is an 87 year-old female patient sitting up in her hospital bed. She is in no acute distress. HEENT: Normocephalic and atraumatic. Pupils are equal and reactive. Oropharynx is clear. NECK: Supple without mass. CHEST: Diminished breath sounds throughout the left lower lung areas. There is equal rise and fall of the chest with inspiration and expiration. CARDIOVASCULAR: Regular rate and rhythm. ABDOMEN: Soft, nondistended, non-tender. Bowel sounds are positive. EXTREMITIES: No clubbing or edema. SKIN: She has an erythematous rash like dermatitis on her chest and entire back that extends down to the upper buttocks. There are no blisters noted, no drainage, no pustules. NEUROLOGIC: She is awake, alert, and oriented times three. Cranial nerves II through XII are grossly intact. LABORATORY: Labs and films are per the history of present illness. ASSESSMENT: 1. Acute onset of wheezing with no clear pathology, may be secondary to unknown allergic reaction and questionable seasonal mild intermittent asthma. 2. Urinary tract infection. 3. Pruritic erythematous dermatitis of unknown etiology. 4. Recent diagnosis of Grave's disease. 5. Seasonal allergy with possible mild intermittent asthma. 6. Gastroesophageal reflux disease. 7. History of DVT. 8. History of renal carcinoma with partial right nephrectomy. PLAN: We will admit the patient to the hospital. Dr. Solorzano actually spoke with the patient while in the hospital. He had seen her just recently and felt that the rash on her chest was worse and suggested that we do an autoimmune panel and include a lupus panel and ESR and CRP and she could followup with that with Dr. Meredith after discharge. I have also ordered a thyroid panel and will put the patient on Rocephin for her urinary tract infection. She will continue with an IV steroid taper, will eventually transition that to oral steroids, hopefully it will help with the breathing as well as the pruritus of the rash. I have also put her on Zantac as well as continued her Periactin and have continued her outpatient medications. We will monitor her urine cultures and hopefully we can plan for discharge within the next 2 to 3 days. #[id number] [facility]
[2018-08-30] MEDS ORDERED: SODIUM CHLORIDE 0.9% (FLUSH) 10 ML SYG IV PRN (09:58)
[2018-08-30] MEDS ORDERED: ACETAMINOPHEN 325 MG TAB PO PRN (09:58)
[2018-08-30] MEDS ORDERED: ALBUTEROL SULFATE 2.5 MG/3 ML VIAL NEB PRN (09:58)
[2018-08-30] MEDS ORDERED: POTASSIUM CHLORIDE 20 MEQ TAB PO ONE (10:04)
[2018-08-30] MEDS: RIVAROXABAN 10 MG TAB PO SCH (11:04)
[2018-08-30] MEDS: IPRATROPIUM/ALBUTEROL 3 ML VIAL NEB SCH ×3 (12:59→20:40)
[2018-08-30] MEDS: IV SET AND CAP CHANGE INJ INJ SCH (13:48)
[2018-08-30] MEDS: methylPREDNISolone SODIUM SUC 125 MG/2 ML VIAL IV SCH ×2 (15:00→22:00)
[2018-08-30] MEDS ORDERED: cefTRIAXone SODIUM 1 GM VIAL ONE (15:02)
[2018-08-30] MEDS ORDERED: SODIUM CHL 0.9% 50ML MIN-BAG+ 50 ML IVPB ONE (15:02)
[2018-08-30] MEDS: cefTRIAXone SODIUM 1 GM in SODIUM CHL 0.9% 50ML MIN-BAG+ 50 ML IVPB SCH (15:04)
[2018-08-30] MEDS: ACETYLCYSTEIN 20 % 6,000 MG/30 ML VIAL PO SCH ×2 (16:08→22:40)
[2018-08-30] MEDS ORDERED: PANTOPRAZOLE SODIUM TAB 40 MG PO ONE (19:53)
[2018-08-30] MEDS: SODIUM CHLORIDE 0.9% (FLUSH) 10 ML SYG IV SCH (20:46)
[2018-08-30] MEDS: CYPROHEPTADINE HCL TAB 4 MG PO SCH (20:46)
[2018-08-30] MEDS: GABAPENTIN 300 MG CAP PO SCH (20:46)
[2018-08-31] MEDS: methylPREDNISolone SODIUM SUC 125 MG/2 ML VIAL IV SCH (06:06)
[2018-08-31] MEDS: PANTOPRAZOLE SODIUM TAB 40 MG PO SCH (06:06)
[2018-08-31] MEDS: POTASSIUM CHLORIDE 10 MEQ TAB PO SCH (07:39)
[2018-08-31] MEDS: IPRATROPIUM/ALBUTEROL 3 ML VIAL NEB SCH ×4 (08:44→20:15)
[2018-08-31] MEDS ORDERED: INSULIN PROTAMINE/LISPRO 75/25 100 UNITS/ML PEN SUBCU ONE (08:48)
--- NOTE | 2018-08-31 09:48 | RAD ---
EXAM DESCRIPTION: Chest,1 View CLINICAL HISTORY: Pneumonia COMPARISON: Chest radiograph dated August 30, 2018 TECHNIQUE: Single upright portable frontal view of the chest FINDINGS: Calcific atherosclerosis of the aortic arch. Cardiac silhouette shows normal heart size. Pulmonary vascularity is within normal limits. Lungs show no confluent infiltrates. No pleural effusion. No pneumothorax. Degenerative changes of the spine and bilateral shoulder joints. IMPRESSION: 1. No acute cardiopulmonary process. 2. Other findings as above. Electronically signed by: aMrco Tolentino MD 08/31/2018 9:46 AM CDT
[2018-08-31] MEDS: hydroCHLOROthiazide 12.5 MG CAP PO SCH (09:53)
[2018-08-31] MEDS: CYPROHEPTADINE HCL TAB 4 MG PO SCH ×2 (09:53→20:44)
[2018-08-31] MEDS: GABAPENTIN 300 MG CAP PO SCH ×2 (09:53→20:43)
[2018-08-31] MEDS: RIVAROXABAN 10 MG TAB PO SCH (09:53)
[2018-08-31] MEDS: ACETYLCYSTEIN 20 % 6,000 MG/30 ML VIAL PO SCH ×2 (09:54→20:44)
[2018-08-31] MEDS: SODIUM CHLORIDE 0.9% (FLUSH) 10 ML SYG IV SCH ×2 (09:59→20:43)
[2018-08-31] MEDS ORDERED: SODIUM CHLORIDE 0.9% 500ML 500 ML IVS ONE (12:43)
--- NOTE | 2018-08-31 13:47 | PN ---
DATE: 08-31-18 SUPERVISING PHYSICIAN: West Chacon MD SUBJECTIVE: The patient is sitting up in bed. She is eating, she is much more alert today. She did not sleep last night until 5 AM but she did sleep until about 10 AM this morning and feels much better, although she still has complaints of wheezing but no shortness of breath. We discussed her Tapazole dosing and that I am going down on it and I will try to call and and get an appointment with Dr. Meredith for next week. She was supposed to have a CTA of her chest this morning but they were unable to get a large bore IV so we will try to get someone from the Emergency Room or EMS to get a 20-gauge or better for her CTA of the chest. OBJECTIVE: VITAL SIGNS: Temperature 98.8, heart rate 83, blood pressure 134/73, respiratory rate 16, 02 saturation 95% on 2 liters nasal cannula. CHEST: A few scattered wheezing on the left lower lung [place], otherwise clear to auscultation but somewhat diminished at the bases. CARDIAC: Regular rate and rhythm. ABDOMEN: Soft, nondistended, non-tender. Bowel sounds are positive. NEUROLOGIC: She is awake, alert, and oriented times 3. LABORATORY: WBC 12,100, hemoglobin 1.1.3, hematocrit 34.3. Neutrophils 92.6. TSH is 46.8, T4 is 0.5. Electrolytes are basically within normal limits. Glucose slightly elevated at 132, BUN slightly high at 23. Immunology panel is pending. Urine culture is pending. RADIOLOGY: Chest x-ray shows no acute cardiopulmonary process. All other labs and films have been reviewed via the EMR. ASSESSMENT: 1. Acute onset of wheezing with no clear pathology, may be secondary to unknown allergic reaction and questionable seasonal mild intermittent asthma. 2. Urinary tract infection. 3. Pruritic erythematous dermatitis of unknown etiology. 4. Recent diagnosis of Grave's disease. She is on Tapazole. Today, her TSH is elevated and her T4 is low. 5. Seasonal allergy with possible mild intermittent asthma. 6. Gastroesophageal reflux disease. 7. History of DVT. 8. History of renal carcinoma with partial right nephrectomy. PLAN: We will continue present supportive care. I will continue to treat her rash as an allergic reaction and I will taper her IV steroids today. She will begin oral steroids tomorrow. We will continue on her breathing treatments. Her wheezing is slightly better but it does continue. Rocephin will be continued for her urinary tract infection and we will monitor her cultures closely. Since her TSH is elevated and her T4 is low, I will decrease her Tapazole to 15 mg b.i.d. I attempted to call Dr. Jackson's office in [place] to get the recommendations on her dosing. It is to be noted that the patient missed an appointment with her slotter operator helper, Dr. Jackson, due to being in the hospital for pneumonia and she may need to be taken off the Tapazole and switched to Synthroid but I am not sure at what point we will do that and how to titrate her dose, so hopefully I can call and get an appointment for followup with Dr. Meredith at [facility] for next week and he can followup with Dr. Jackson. She garcia have an appointment on September 21. Will continue on her antihistamine as well as her PPI. I also would like to get EMS or someone from the Emergency Room to come start an IV for her to get that CTA of her chest due to her significant history of DVT, although she is on Xarelto. She has received Mucomyst for 2 days, yesterday for kidney protection and she should get 2 doses. If the CTA is not done until this afternoon she may need an extra dose of Mucomyst in the morning but we will followup with that as soon as they can get that testing done. The likelihood of her having a pulmonary embolus is minimal due to her being anticoagulated on Xarelto but we will need to followup for that. I have ordered lab for the in morning and we will continue to monitor closely and follow as needed. #[id number] [facility]
[2018-08-31] MEDS ORDERED: SODIUM CHL 0.9% 50ML MIN-BAG+ 50 ML IVPB ONE (13:58)
[2018-08-31] MEDS ORDERED: cefTRIAXone SODIUM 1 GM VIAL ONE (13:58)
[2018-08-31] MEDS: cefTRIAXone SODIUM 1 GM in SODIUM CHL 0.9% 50ML MIN-BAG+ 50 ML IVPB SCH (14:04)
[2018-08-31] MEDS: methylPREDNISolone SODIUM SUC 40 MG/ML VIAL IV SCH ×2 (14:04→21:59)
[2018-09-01] MEDS: methylPREDNISolone SODIUM SUC 40 MG/ML VIAL IV SCH (06:08)
[2018-09-01] MEDS: PANTOPRAZOLE SODIUM TAB 40 MG PO SCH (06:08)
--- NOTE | 2018-09-01 07:17 | CT ---
EXAM: CT Angiography Chest With Intravenous Contrast CLINICAL HISTORY: The patient is 87 years old and is Female; hx of dvt; sob TECHNIQUE: Axial computed tomographic angiography images of the chest with intravenous contrast using pulmonary embolism protocol. Sagittal and coronal reformatted images were created and reviewed. This CT exam was performed using one or more of the following dose reduction techniques: automated exposure control, adjustment of the mA and/or kV according to patient size, and/or use of iterative reconstruction technique. MIP reconstructed images were created and reviewed. COMPARISON: CTA chest from 03/31/2018 FINDINGS: PULMONARY ARTERIES: There are no obvious filling defects identified within the pulmonary arteries to suggest pulmonary embolism. AORTA: Atherosclerotic calcifications are noted. No aortic aneurysm or dissection. LUNGS: Mild atelectasis, primarily in the dependent aspects of the lungs. There is a mosaic attenuation pattern, with faint areas of apparent groundglass opacification intermixed with more lucent regions which may represent air trapping. No consolidation visualized. No lung mass. PLEURAL SPACE: No significant effusion. No pneumothorax. HEART: Mild cardiomegaly. Coronary artery calcifications. No pericardial effusion. BONES/JOINTS: No acute fracture. No dislocation. SOFT TISSUES: Unremarkable. LYMPH NODES: No significant lymph node enlargement. IMPRESSION: No evidence of pulmonary embolism. Electronically signed by: Catie Ramos MD 09/01/2018 7:15 AM CDT
[2018-09-01] MEDS: POTASSIUM CHLORIDE 10 MEQ TAB PO SCH (07:46)
[2018-09-01] MEDS: IPRATROPIUM/ALBUTEROL 3 ML VIAL NEB SCH ×4 (07:54→20:06)
[2018-09-01] MEDS: predniSONE 20 MG TAB PO SCH (08:57)
[2018-09-01] MEDS: RIVAROXABAN 10 MG TAB PO SCH (08:57)
[2018-09-01] MEDS: hydroCHLOROthiazide 12.5 MG CAP PO SCH (08:58)
[2018-09-01] MEDS: SODIUM CHLORIDE 0.9% (FLUSH) 10 ML SYG IV SCH ×2 (08:58→20:36)
[2018-09-01] MEDS: GABAPENTIN 300 MG CAP PO SCH ×2 (08:58→20:36)
[2018-09-01] MEDS: CYPROHEPTADINE HCL TAB 4 MG PO SCH ×2 (08:58→20:36)
[2018-09-01] MEDS ORDERED: NYSTATIN POWDER 15GM BTTL TOP ONE (11:00)
[2018-09-01] MEDS ORDERED: hydrOXYzine HCl 25 MG TAB ONE (13:13)
[2018-09-01] MEDS ORDERED: SODIUM CHL 0.9% 50ML MIN-BAG+ 50 ML IVPB ONE (13:13)
[2018-09-01] MEDS ORDERED: cefTRIAXone SODIUM 1 GM VIAL ONE (13:14)
[2018-09-01] MEDS ORDERED: hydrOXYzine HCl 25 MG TAB PO ONE (14:11)
[2018-09-01] MEDS: cefTRIAXone SODIUM 1 GM in SODIUM CHL 0.9% 50ML MIN-BAG+ 50 ML IVPB SCH (14:12)
[2018-09-01] MEDS: NYSTATIN POWDER 15GM BTTL TOP SCH (20:36)
[2018-09-02] MEDS: PANTOPRAZOLE SODIUM TAB 40 MG PO SCH (06:22)
[2018-09-02] MEDS: IPRATROPIUM/ALBUTEROL 3 ML VIAL NEB SCH ×4 (07:26→20:21)
[2018-09-02] MEDS: POTASSIUM CHLORIDE 10 MEQ TAB PO SCH (07:40)
[2018-09-02] MEDS: CYPROHEPTADINE HCL TAB 4 MG PO SCH ×2 (08:18→20:59)
[2018-09-02] MEDS: predniSONE 20 MG TAB PO SCH (08:18)
[2018-09-02] MEDS: GABAPENTIN 300 MG CAP PO SCH ×2 (08:18→20:55)
[2018-09-02] MEDS: hydroCHLOROthiazide 12.5 MG CAP PO SCH (08:18)
[2018-09-02] MEDS: NYSTATIN POWDER 15GM BTTL TOP SCH ×4 (08:19→20:57)
[2018-09-02] MEDS: RIVAROXABAN 10 MG TAB PO SCH (08:19)
[2018-09-02] MEDS: SODIUM CHLORIDE 0.9% (FLUSH) 10 ML SYG IV SCH ×2 (08:19→20:58)
--- NOTE | 2018-09-02 08:39 | PN ---
DATE: 09-01-18 SUPERVISING PHYSICIAN: West Chacon MD SUBJECTIVE: The patient is sitting in the bedside chair visiting with the family. They note the rash is not quite as intense. The itching has been fairly well controlled. We discussed trying to use Atarax and again, encouraged her quit scratching to prevent any secondary infection. I did discuss her CTA findings this morning and that there were no acute findings on the current studies without any signs of a pulmonary embolism. OBJECTIVE: VITAL SIGNS: Temperature 98, heart rate 71, blood pressure 121/72, respiratory rate 14, saturation 96% on 2 liters nasal cannula at rest. Weight 68.6 kg. GENERAL: The patient is resting comfortably in the bedside chair and appears to be in no acute distress. She is alert. CHEST: Lung sounds are fairly clear throughout, just slightly diminished toward the bases. CARDIAC: Regular rate and rhythm. ABDOMEN: Soft, nondistended, non-tender. Bowel sounds are positive. EXTREMITIES: Without any edema. NEUROLOGIC: She is awake, alert, and oriented times 3. SKIN: Exam shows some mild erythema on her chest and back area with some other areas where she has scratched. There obviously were some small blisters. No signs of infection. On exam of her extremities, there are no signs of any rash, it seems to be located just to the chest and back areas. LABORATORY: White count 12,500, hemoglobin 11.2, hematocrit 33.4, platelet count 268,000, differential does show a left shift but she is on current steroid administration. Her electrolytes are within normal limits with potassium 4.0, BUN slightly elevated at 33, creatinine 1.14, calcium 9.6, magnesium 2.2. Hematology panel is pending for inflammatory studies. MICROBIOLOGY: Urine culture still pending. RADIOLOGY: CT of the chest this morning per radiology interpretation showed no evidence of pulmonary embolism. Lungs are noted to be mildly atelectasis primarily in the dependent aspects of the lungs. There was a mosaic attenuation pattern with faint areas of apparent ground glass opacification intermixed with more lucent regions which may represent air trapping, no consolidations visualized in the lungs and no lung masses. She did have a chest x-ray as well and per radiology interpretation, showed no acute cardiopulmonary process. ASSESSMENT: 1. Acute bronchitis, uncertain etiology, possibly related to allergic reaction versus some seasonal allergies showing improvement with corticosteroids. 2. Urinary tract infection with cultures pending. 3. Pruritic erythematous dermatitis of unknown etiology possibly related to new medication regimen to include Tapazole. 4. Graves disease, on Tapazole with TSH elevated on admission with T4 being low, currently followed by endocrinology. 5. Seasonal allergy with questionable intermittent asthma. 6. Gastroesophageal reflux disease, chronic. 7. History of DVT without any signs of DVT or pulmonary embolism on current studies. 8. History of renal carcinoma with partial right nephrectomy. PLAN: We will continue with current antibiotic therapy at this point. I did discuss the pruritus, that we would try some Atarax if we needed. She did note that she had not slept very well for the last two days. We did discuss with her that was more likely from her steroids. We will anticipate hopefully being able to discharge within the next 24-48 hours. She does remain on Xarelto. She got 2 doses of Mucomyst prior to CT of the chest. Again, hopefully be able to discharge later tomorrow to followup with her drupal web developer in the following week and Dr. Meredith. If she is still here on Monday, certainly we will try to contact Dr. Jackson's office, her drupal web developer in [place] and discuss the rash in regards to the question of it being related to Tapazole. Until the, we will continue to monitor and treat as needed. #[id number] [facility]
[2018-09-02] MEDS ORDERED: cefTRIAXone SODIUM 1 GM VIAL ONE (13:34)
[2018-09-02] MEDS ORDERED: SODIUM CHL 0.9% 50ML MIN-BAG+ 50 ML IVPB ONE (13:34)
[2018-09-02] MEDS: cefTRIAXone SODIUM 1 GM in SODIUM CHL 0.9% 50ML MIN-BAG+ 50 ML IVPB SCH (14:27)
[2018-09-02] MEDS: IV SET AND CAP CHANGE INJ INJ SCH (14:27)
--- NOTE | 2018-09-02 18:16 | PN ---
DATE: 09/02/18 SUPERVISING PHYSICIAN: [place] M.D. SUBJECTIVE: The patient reports that she got some general relief last night with Atarax. She notes that the rash seem to be clearing up and is not near as extreme. OBJECTIVE: VITAL SIGNS: Temperature 97.5, pulse 75, blood pressure 126/75, respirations 18, satting 93% on room air. Weight is 68.3 kg. GENERAL: The patient appears in no acute distress. She is resting comfortably in the bedside chair. She is alert. CHEST: Lung sounds were clear throughout. Chest wall does show some mild continued erythema with some areas of abrasion where she has scratched with small blisters with no current signs of infection. HEART: Regular rate and rhythm. ABDOMEN: Soft, non-tender. Positive bowel sounds. EXTREMITIES: Without any edema. NEUROLOGIC: She is alert and oriented times three. SKIN: Exam shows continued mild erythema of the chest wall but back is clear today. There still remains some small areas on the chest that were scratched that previously looked like they were blisters, but no signs of secondary infection. LABORATORY: CBC shows white count now at 9,700, hemoglobin 10.8, hematocrit 32.9, platelet count 242,000. Differential shows to be a mild left shift. Chemistries show stable electrolytes with potassium 3.6, BUN 31, creatinine 1.01. Rheumatology panel is still pending. MICROBIOLOGY: Urine culture shows greater than 100,000 colony forming units per mL of zunilda negative bacilli with final culture results pending. ASSESSMENT: 1. Acute bronchitis, uncertain etiology, possibly related to allergic reaction versus some seasonal allergies showing improvement with corticosteroids. 2. Urinary tract infection secondary to gram negative bacilli awaiting final culture results. 3. Pruritic erythematous dermatitis of unknown etiology possibly related to new medication regimen to include Tapazole. 4. Graves disease, on Tapazole with TSH elevated on admission with T4 being low, currently followed by endocrinology. 5. Seasonal allergy with questionable intermittent asthma. 6. Gastroesophageal reflux disease, chronic. 7. History of DVT without any signs of DVT or pulmonary embolism on current studies. 8. History of renal carcinoma with partial right nephrectomy. PLAN: Will continue antibiotic therapy awaiting final culture results. Will continue to use Atarax as needed to help with pruritus and encourage the patient not to scratch to prevent any secondary infections. She remains on oral steroids at this point. She got her dose of Mucinex and her kidney function seems to be stable at this point. Will hold off on any labs tomorrow. Hopefully be able to discharge her so she can followup with Dr. Jackson's office, her shank breaker, and Dr. Meredith in the near future. Until we can discharge will continue to monitor and treat as needed. #[id number] [facility]TDD
[2018-09-03] MEDS: PANTOPRAZOLE SODIUM TAB 40 MG PO SCH (06:22)
[2018-09-03] MEDS: IPRATROPIUM/ALBUTEROL 3 ML VIAL NEB SCH (07:42)
[2018-09-03] MEDS: hydroCHLOROthiazide 12.5 MG CAP PO SCH (08:09)
[2018-09-03] MEDS: CYPROHEPTADINE HCL TAB 4 MG PO SCH (08:09)
[2018-09-03] MEDS: RIVAROXABAN 10 MG TAB PO SCH (08:09)
[2018-09-03] MEDS: POTASSIUM CHLORIDE 10 MEQ TAB PO SCH (08:10)
[2018-09-03] MEDS: predniSONE 20 MG TAB PO SCH (08:10)
[2018-09-03] MEDS: GABAPENTIN 300 MG CAP PO SCH (08:10)
[2018-09-03] MEDS: SODIUM CHLORIDE 0.9% (FLUSH) 10 ML SYG IV SCH (08:10)
[2018-09-03] MEDS: NYSTATIN POWDER 15GM BTTL TOP SCH ×2 (08:29→13:38)
[2018-09-03 10:29] VITALS: BP 151/73; TEMP 98.5; O2SAT 93
[2018-09-03] MEDS ORDERED: cefTRIAXone SODIUM 1 GM VIAL ONE (13:19)
[2018-09-03] MEDS ORDERED: SODIUM CHL 0.9% 50ML MIN-BAG+ 50 ML IVPB ONE (13:19)
[2018-09-03] MEDS: cefTRIAXone SODIUM 1 GM in SODIUM CHL 0.9% 50ML MIN-BAG+ 50 ML IVPB SCH (13:37)
--- NOTE | 2018-09-04 08:50 | DS ---
SUPERVISING PHYSICIAN: Kendrick Stuart MD ADMISSION DIAGNOSIS: 1. Acute onset of wheezing with no clear pathology, may be secondary to unknown allergic reaction and questionable seasonal mild intermittent asthma. 2. Urinary tract infection. 3. Pruritic erythematous dermatitis of unknown etiology. 4. Recent diagnosis of Grave's disease. 5. Seasonal allergy with possible mild intermittent asthma. 6. Gastroesophageal reflux disease. 7. History of deep venous thrombosis. 8. History of renal carcinoma with partial right nephrectomy. DISCHARGE DIAGNOSIS: 1. Acute bronchitis, uncertain etiology, possibly related to allergic reaction versus some seasonal allergies showing improvement with corticosteroids. 2. Urinary tract infection secondary to gram negative bacilli awaiting final culture results. 3. Pruritic erythematous dermatitis of unknown etiology possibly related to new medication regimen to include Tapazole. 4. Graves disease, on Tapazole with TSH elevated on admission with T4 being low, currently followed by endocrinology. 5. Seasonal allergy with questionable intermittent asthma. 6. Gastroesophageal reflux disease, chronic. 7. History of deep venous thrombosis without any signs of DVT or pulmonary embolism on current studies. 8. History of renal carcinoma with partial right nephrectomy. REASON FOR HOSPITALIZATION: This is an 87 year-old patient who came to the Emergency Room for coughing and wheezing times two days. About two weeks ago she moved into [facility] and about a week prior to that she had an erythematous rash on her chest and upper back. It was pruritic and erythematous but there was no drainage or blisters. She saw Dr. Solorzano several weeks ago and he was concerned that there was something else going on and she was recently diagnosed with Graves disease and he wanted her to followup with her shackler, Dr. Jackson, in [place] prior to him removing the lesion. An appointment was made with Dr. Jackson and she is to see her on September 21. In the last few days she has had increased itching and the rash has now extended down her posterior side to her upper buttocks. She has also started having some coughing and wheezing. There has been no fever and her vital signs have remained stable. It is to be noted that her room in [facility] is right next to the laundry room and they feel it is somewhat humid in that area. She does have a history of seasonal allergies and it has been discussed that she have testing to see if she has asthma, She was tested at some point and they found that it was more gastroesophageal reflux disease associated but she does have seasonal allergies and occasionally does take breathing treatments. She was exposed to secondhand smoke for many years from her , although he several years ago and he quit smoking about 20 years prior to his . In the Emergency Room, she had expiratory wheezes but her vital signs were mostly stable with temperature of 96.7, heart rate of 70, blood pressure 194/86. Respiratory rate 20, 02 saturation 94%, it did drop as low a 93% and her blood pressure did improve to 123/74. She received multiple breathing treatments in the Emergency Room. She also received 125 mg of Solu-Medrol. She also had lab done. WBCs were 5.6 with a hemoglobin of 12.3 and hematocrit of 36.3. Her sodium was 138, potassium 3.2, chloride 99, creatinine kinase 2.34. She was given some supplemental potassium. Chest x-ray showed clear lungs. Her urinalysis showed a trace of lysed urine blood, small amount of leukocyte esterase, 40 to 50 WBCs and 3+ urine bacteria. The patient was admitted in stable condition. LABORATORY STUDIES: Initial white count was 5,600 and did go up to a maximum of 12,500, but returned to baseline levels at 9,700 before discharge. Hemoglobin and hematocrit were stable at 10.8 and 32.0 respectively with platelet count 342,000. Differential did show a left shift, but resolved. Sedrate was elevated at 45. Initial chemistries on admission showed a low potassium at 3.2, otherwise electrolytes were within normal limits. BUN 17, creatinine 1.25 at discharge. Prior to discharge, creatinine was 1.01, BUN 31. All other electrolytes were within normal limits. Calcium 9.3, magnesium 2.2. TSH was elevated at 46.8 with thyroxine at less than 0.5. Liver functions were all within normal limits. C-reactive protein was slightly elevated at 1.4. Troponin initially was less than 0.02. IMMUNOLOGY: Rheumatology panel pending. Results to be sent to Dr. Meredith. MICROBIOLOGY: Final urine culture results showed an E. coli that was sensitive to all but tetracycline. RADIOLOGY: She had a chest x-ray in the Emergency Room prior to admission and per radiologic interpretation of a single view chest showed clear lungs. She had a CTA of the chest/thorax and per radiologic interpretation showed no evidence of pulmonary embolism. Please see that report for full details. EKG at time of admission showed a normal sinus rhythm with no acute ST or T-wave changes. HOSPITAL COURSE: Ms. Garcia was admitted on 08/30/18. She was started on steroids for the pruritus. She was treated with Rocephin for underlying urinary tract infection. She was stable and actually having good improvement in her symptoms. We were utilizing Atarax at night for her itching which did resolve fairly well. On the day of discharge, the patient was asymptomatic other than just some dry skin on her chest. The rash had essentially disappeared and she was felt clinically stable enough to continue with outpatient management. It was also felt that she had been treated adequately since admission for underlying urinary tract infection and given the patient's history and frailness, antibiotics were not continued at discharge. DISCHARGE ASSESSMENT: VITAL SIGNS: Temperature 98.5. Pulse 64. Blood pressure 151/72. Respirations 15. Saturation 93% on room air. GENERAL APPEARANCE: The patient is resting comfortably, appeared to be in no acute distress. CHEST: Lungs clear to auscultation bilaterally with no rales, rhonchi or wheezing. On the chest wall were noted areas of mild erythema with some old scabs, but no obvious blisters or signs of infection. HEART: Regular rate and rhythm. ABDOMEN: Soft, nontender, positive bowel sounds. EXTREMITIES: Without edema. NEUROLOGIC: Alert and oriented x3. SKIN: Mild erythema to the chest wall. Back was clear. There still remained some small areas on the chest that were scratched out previously, but without any signs of secondary infection. PLAN: Ms. Garcia is discharged on 09/03/18 to followup with her primary care provider, Dr. Meredith. She was to resume her home medications as instructed. Diet was regular diet as tolerated. Activities as tolerated utilizing a walker. The patient was to see Dr. Jackson, her shackler, and she was provided with her thyroid function tests while in the hospital at discharge. MEDICATIONS ON DISCHARGE: 1. Benadryl 25 mg q.8h. as needed for itching, #30, no refills. 2. Benadryl itch stopping cream 2% topically up to 4 times a day for itching to affected area, #1 bottle, no refills. 3. Curad hydrocortisone 1% topically to affected area up to twice daily, #1 tube, no refills. 4. Methimazole 10 mg tablets, take 1.5 tablets twice daily, #30, no refills. 5. Medrol Dosepak 4 mg as instructed. 6. Nystatin powder topically twice daily as needed, #1 bottle, no refills. CONDITION AT DISCHARGE: Stable and improved. DISPOSITION: The patient was discharged back to [facility]. #[id number]
== END 2018-09-03 14:43 | disposition home health service (06) | DRG 202 ==
LOC: ER 00:38 → MS 07:19
PROVIDERS: ADMIT Nurse Practitioner Acute Care; ATTEND Nurse Practitioner Family
PROC: B32T1ZZ Computerized Tomography (CT Scan) of Left Pulmonary Artery using Low Osmolar Contrast (ICD-10-PCS; principal; 2018-08-31)
PROC: B3201ZZ Computerized Tomography (CT Scan) of Thoracic Aorta using Low Osmolar Contrast (ICD-10-PCS; 2018-08-31)
PROC: B32S1ZZ Computerized Tomography (CT Scan) of Right Pulmonary Artery using Low Osmolar Contrast (ICD-10-PCS; 2018-08-31)
DX: J45.20 Mild intermittent asthma, uncomplicated (principal); N39.0 Urinary tract infection, site not specified; L30.8 Other specified dermatitis; E05.00 Thyrotoxicosis with diffuse goiter without thyrotoxic crisis or storm; K21.9 Gastro-esophageal reflux disease without esophagitis; K58.9 Irritable bowel syndrome, unspecified; Z86.718 Personal history of other venous thrombosis and embolism; Z85.528 Personal history of other malignant neoplasm of kidney; Z90.5 Acquired absence of kidney; Z16.29 Resistance to other single specified antibiotic; Z79.01 Long term (current) use of anticoagulants; Z95.828 Presence of other vascular implants and grafts; Z90.49 Acquired absence of other specified parts of digestive tract; Z79.899 Other long term (current) drug therapy; Z88.0 Allergy status to penicillin; Z88.5 Allergy status to narcotic agent

== ENCOUNTER 2018-09-11 14:42 | Observation (INO) | payer MEDICARE, OTHER ==
[2018-09-11] MEDS ORDERED: SODIUM CHLORIDE 0.9% (FLUSH) 10 ML SYG IV PRN ×2 (15:22→21:28)
--- NOTE | 2018-09-11 15:47 | ED.PDOC ---
History of Present Illness - General Chief Complaint: Neuro Symptoms/Deficits Stated Complaint: decreased LOC Time Seen by Provider: 09/11/18 15:22 Source: patient, family, RN/MD Exam Limitations: no limitations - History of Present Illness Initial Comments: PT BROUGHT IN FROM [facility] DUE TO DIFFICULTY GETTING PT TO WAKE UP THIS AFTERNOON. DAUGHTER STATES THAT PT HAS BEEN HAD INCREASED SOMNOLENCE THE LAST FEW DAYS AFTER BEING HOSPITALIZED 1.5 WEEKS AGO. PT IS NOW AWAKE AND ALERT AND DENIES ANY COMPLAINTS EXCEPT FOR FEELING TIRED. Timing/Duration: intermittent Severity: moderate Improving Factors: nothing Worsening Factors: nothing Associated Symptoms: malaise Allergies/Adverse Reactions: Allergies Codeine Allergy (Intermediate, Verified 09/03/18 00:41) Penicillins Allergy (Intermediate, Verified 09/03/18 00:41) Hives Home Medications: Ambulatory Orders Potassium Chloride [Micro-K] 10 meq PO DAILY 07/10/15 Folic Acid-Vitamin B6-Vitamin [Folbee 2.5-25-1 mg] 1 tab PO DAILY 12/01/16 Gabapentin 300 mg PO BID PRN 12/01/16 Magnesium [Magnesium 250 mg] 1 tab PO DAILY 11/12/17 Rivaroxaban [Xarelto] 20 mg PO DAILY 11/12/17 Albuterol Sulfate Nebs [Proventil Nebs] 2.5 mg NEB Q4H PRN #30 vial 04/03/18 Cyproheptadine HCl [Cyproheptadine Hydrochlor] 4 mg PO BID 08/30/18 Hydrochlorothiazide 12.5 mg PO DAILY 08/30/18 Diphenhydramine HCl (Topical) [Benadryl Itch Stopping] 2 % EX QID #1 bottle 09/03/18 Hydrocortisone (Topical) [Curad Hydrocortisone] 1 % EX BID PRN #1 tube 09/03/18 Methimazole 15 mg PO BID #30 tab 09/03/18 Methylprednisolone [Medrol Dose Luis E] 4 mg PO DAILY 6 Days #21 tab 09/03/18 Nystatin Powder 1 gm TOP BID PRN #1 bttl 09/03/18 diphenhydrAMINE HCL [Benadryl] 25 mg PO Q8HRS PRN #30 cap 09/03/18 Review of Systems - Review of Systems Constitutional: States: malaise. Denies: chills, fever EENTM: Denies: nose congestion, throat pain Respiratory: Denies: cough, short of breath Cardiology: Denies: chest pain, palpitations Gastrointestinal/Abdominal: Denies: abdominal pain, diarrhea, nausea, vomiting Genitourinary: Denies: dysuria, frequency Musculoskeletal: Denies: joint pain, joint swelling Skin: States: change in color, rash - TO ANTERIOR CHEST WALL Neurological: Denies: headache, numbness, weakness Endocrine: States: no symptoms reported Hematologic/Lymphatic: States: no symptoms reported Past Medical History (General) - Patient Medical History Hx Seizures: No Hx Stroke: No Hx Dementia: Yes Hx Asthma: No Hx of COPD: No Hx Cardiac Disorders: Yes - Hx DVT Hx Congestive Heart Failure: No Hx Pacemaker: No Hx Hypertension: No Hx Thyroid Disease: No Hx Diabetes: No Hx Gastroesophageal Reflux: Yes Hx Renal Disease: No Hx Cancer: Yes - right kidney Hx of HIV: No Hx Hepatitis C: No Hx MRSA: No Surgical History: Hysterectomy - Vaccination History Hx Tetanus, Diphtheria Vaccination: No Hx Influenza Vaccination: Yes Hx Pneumococcal Vaccination: Yes - Social History Hx Tobacco Use: No Hx Chewing Tobacco Use: No Hx Alcohol Use: No Hx Substance Use: No Hx Substance Use Treatment: No Hx Depression: No Hx Physical Abuse: No Hx Emotional Abuse: No Hx Suspected Abuse: No - Activities of Daily Living Long-Term/Assisted Living (if applicable):: [place] - Female History Patient : No Family Medical History - Family History Mother Family History: No Known Living Status: Hx Cardiac Disease: Yes - parents Hx Family Cancer: Yes - esophagus-brother Father Family History: No Known Living Status: Hx Cardiac Disease: Yes Physical Exam - Physical Exam General Appearance: Alert, Comfortable, No apparent distress, Well Developed, Well Groomed, Well Hydrated, Well Nourished Eye Exam: bilateral normal Ears, Nose, Throat: hearing grossly normal Neck: non-tender, full range of motion Respiratory: lungs clear, normal breath sounds, no respiratory distress Cardiovascular/Chest: regular rate, rhythm, no murmur Gastrointestinal/Abdominal: non tender, soft Back Exam: no CVA tenderness Extremity: calf tenderness - BILATERAL Neurologic: alert, normal mood/affect, oriented x 3 Skin Exam: normal color, warm/dry, rash - EXTENSIVE AREA OF PARTIALLY DENUDED AND ESCORIATED SKIN TO ANTERIOR CHEST WALL, MILD TO MODERATE SURROUNDING ERYTHEMA. Progress - Progress Progress: 09/11/18:40 DR. MEREDITH CALLED TO DISCUSS CASE. STATES THAT PT WAS RECENTLY FOUND TO BE HYPOTHYROID AND METHAZOLE DOSE WAS CUT IN HALF. ASKS THAT THYROID STUDIES BE REPEATED. - Results/Orders Results/Orders: Laboratory Tests 09/11/18 09/11/18 09/11/18 15:20 15:20 16:40 WBC 6.6 RBC 3.95 L Hgb 13.5 Hct 39.5 MCV 100.0 H MCH 34.1 H MCHC 34.0 RDW 15.0 H Plt Count 258 MPV 7.8 Absolute Neuts (auto) 4.40 Absolute Lymphs (auto) 1.20 Absolute Monos (auto) 0.40 Absolute Eos (auto) 0.60 H Absolute Basos (auto) 0.00 Neutrophils % 66.5 Lymphocytes % 18.8 L Monocytes % 5.4 Eosinophils % 8.5 H Basophils % 0.8 Sodium 137 Potassium 4.0 Chloride 99 L Carbon Dioxide 29 Anion Gap 13.0 BUN 27 H Creatinine 1.14 BUN/Creatinine Ratio 23.7 H Random Glucose 82 Serum Osmolality 278.0 Calcium 9.9 Total Bilirubin 0.9 AST 53 H ALT 98 H Alkaline Phosphatase 66 Creatine Kinase 71 CK-MB (CK-2) 1.5 CK-MB (CK-2) % Not Reportable Troponin I < 0.02 Serum Total Protein 7.1 Albumin 3.9 Globulin 3.2 Albumin/Globulin Ratio 1.2 TSH Thyroxine (T4) Urine Color Straw Urine Appearance Cloudy Urine pH 8.5 H Ur Specific [place] 1.020 Urine Protein 30 Urine Glucose (UA) Negative Urine Ketones Negative Urine Blood Negative Urine Nitrite Negative Urine Bilirubin Negative Urine Urobilinogen 0.2 Ur Leukocyte Esterase Trace H Urine RBC 0-1 Urine WBC 1-3 Ur Epithelial Cells >50 Amorphous Sediment 1+ Urine Bacteria Rare Urine Yeast 1+ budding H 09/11/18 16:48 WBC RBC Hgb Hct MCV MCH MCHC RDW Plt Count MPV Absolute Neuts (auto) Absolute Lymphs (auto) Absolute Monos (auto) Absolute Eos (auto) Absolute Basos (auto) Neutrophils % Lymphocytes % Monocytes % Eosinophils % Basophils % Sodium Potassium Chloride Carbon Dioxide Anion Gap BUN Creatinine BUN/Creatinine Ratio Random Glucose Serum Osmolality Calcium Total Bilirubin AST ALT Alkaline Phosphatase Creatine Kinase CK-MB (CK-2) CK-MB (CK-2) % Troponin I Serum Total Protein Albumin Globulin Albumin/Globulin Ratio TSH > 49.60 H Thyroxine (T4) < 0.50 L* Urine Color Urine Appearance Urine pH Ur Specific [place] Urine Protein Urine Glucose (UA) Urine Ketones Urine Blood Urine Nitrite Urine Bilirubin Urine Urobilinogen Ur Leukocyte Esterase Urine RBC Urine WBC Ur Epithelial Cells Amorphous Sediment Urine Bacteria Urine Yeast - EKG/XRAY/CT EKG: Roderick - @59BPM, NL INTERVALS, NL AXIS, POOR R WAVE PROGRESSION, Sinus, nonspecific ST T wave Chg, Unchanged from - 08/30/18 Departure - Departure Clinical Impression: Somnolence, daytime, Hypothyroidism, Rash Time of Disposition: 17:57 Disposition: Admit Patient Condition: Fair Departure Forms: ED Discharge - Pt. Copy, Patient Portal Self Enrollment Referrals: Dwight Meredith MD [Primary Care Provider] - 1-2 Weeks Home Medications: Ambulatory Orders Potassium Chloride [Micro-K] 10 meq PO DAILY 07/10/15 Folic Acid-Vitamin B6-Vitamin [Folbee 2.5-25-1 mg] 1 tab PO DAILY 12/01/16 Gabapentin 300 mg PO BID PRN 12/01/16 Magnesium [Magnesium 250 mg] 1 tab PO DAILY 11/12/17 Rivaroxaban [Xarelto] 20 mg PO DAILY 11/12/17 Albuterol Sulfate Nebs [Proventil Nebs] 2.5 mg NEB Q4H PRN #30 vial 04/03/18 Cyproheptadine HCl [Cyproheptadine Hydrochlor] 4 mg PO BID 08/30/18 Hydrochlorothiazide 12.5 mg PO DAILY 08/30/18 Diphenhydramine HCl (Topical) [Benadryl Itch Stopping] 2 % EX QID #1 bottle 09/03/18 Hydrocortisone (Topical) [Curad Hydrocortisone] 1 % EX BID PRN #1 tube 09/03/18 Methimazole 15 mg PO BID #30 tab 09/03/18 Methylprednisolone [Medrol Dose Luis E] 4 mg PO DAILY 6 Days #21 tab 09/03/18 Nystatin Powder 1 gm TOP BID PRN #1 bttl 09/03/18 diphenhydrAMINE HCL [Benadryl] 25 mg PO Q8HRS PRN #30 cap 09/03/18 Decision To Admit - Decistion To Admit Decision to Admit Reason: Admit from ER Decision to Admit Date: 09/11/18 Decision to Admit Time: 17:57 - CASE DISCUSSED WITH KIRT GUERIN NP WHO AGREES TO ADMIT
--- NOTE | 2018-09-11 16:06 | CT ---
EXAM DESCRIPTION: Head CLINICAL HISTORY: LETHARGY COMPARISON: CT head dated November 12, 2017. TECHNIQUE: Contiguous axial images through the head were obtained without intravenous contrast administration. Sagittal and coronal reconstructions were reviewed. FINDINGS: No evidence of acute major vascular territorial infarct or intraparenchymal hemorrhage. No intra-axial or extra-axial fluid collections are identified. No significant mass effect or midline shift. Moderate volume loss is again noted. Mild ventricular dilatation is noted likely sequela of exvacuodilatation. Mild periventricular white matter changes are again noted consistent with chronic small ischemic disease. The sella and suprasellar regions appear normal. The structures of the posterior fossa are intact. The globes are intact bilaterally. The visualized paranasal sinuses and mastoid air cells are well-aerated. Review of the bones demonstrates no gross instability. IMPRESSION: 1. No acute intracranial process. 2. Moderate volume loss and mild periventricular chronic small vessel ischemic changes. This exam was performed according to our departmental dose-optimization program, which includes automated exposure control, adjustment of the mA and/or kV according to patient size and/or use of iterative reconstruction technique. Electronically signed by: Wolf Boo MD 09/11/2018 4:04 PM CDT
--- NOTE | 2018-09-11 16:07 | RAD ---
EXAM DESCRIPTION: Chest,1 View CLINICAL HISTORY: 87 years Female, LETHARGY COMPARISON: August 31, 2018. TECHNIQUE: AP radiograph of the chest was obtained. FINDINGS: Trachea is midline.The cardiomediastinal silhouette is normal in size. The pulmonary vasculature is within normal limits. Linear areas of airspace opacification in the right lower lobe could represent atelectasis. No acute consolidation or pleural effusion. Right lower lobe atelectatic changes are noted. IMPRESSION: No acute cardiopulmonary process. Electronically signed by: Wolf Boo MD 09/11/2018 4:05 PM CDT
[2018-09-11] MEDS ORDERED: SODIUM CHLORIDE 0.9% 1000ML 1,000 ML IVS ONE (17:13)
--- NOTE | 2018-09-11 20:26 | HP ---
SUPERVISING PHYSICIAN: David Cochran MD CHIEF COMPLAINT: Lethargy. HISTORY OF PRESENT ILLNESS: This is an 87-year-old female who came to the Emergency Room due to lethargy. Her home health nurse saw her at her assisted living facility and had a very difficult time waking her up. CT scan of her brain was unremarkable. Chest x-ray showed no acute cardiopulmonary process. Labs were done in the Emergency Room and showed a white count of 6.6, hemoglobin 13.5, platelet count 258. Chemistries showed a mild elevation in BUN at 27 which would indicate she is dehydrated. She also has elevation in AST and ALT at 53 and 98. She was diagnosed in March with Graves disease and was put on methimazole. Since that time, a repeat TSH and levothyroxine were done at the beginning of this month and the TSH was elevated and the T4 was low. She had a reduction in the methimazole and another level was drawn here. On August 30, it was 46.8 and this time it says greater than 49.6. It could be actually higher than that. Additionally, she has had a rash on her chest for quite some time. Her family states originally it was a rash that itched and she scratched it and it actually opened up. The rash has not gone away. She has been on steroids and they have given her several different creams and it has not gotten any better. It has not been evaluated by a embossing press operator as of yet. She is supposed to have a followup appointment with her specimen processor in [place] on 09/19/18 to address her methimazole. She has not been seen yet, obviously. She was referred for admission due to lethargy, dehydration as well as iatrogenic hypothyroidism. PAST MEDICAL HISTORY: 1. Graves disease. 2. Allergies. 3. 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 4. Gastroesophageal reflux disease. 5. Irritable bowel syndrome. 6. Renal cell carcinoma with partial right nephrectomy. 7. Herpes zoster. 8. Asthma. PAST SURGICAL HISTORY: 1. Cholecystectomy. 2. Hysterectomy. 3. Right nephrectomy for renal cell carcinoma. 4. IVC filter placement. 5. Bilateral knee surgeries. MEDICATIONS: Please see med rec list once they are verified in the computer. ALLERGIES: PENICILLIN, CODEINE. FAMILY HISTORY: Positive for asthma, congestive heart failure and coronary artery disease. SOCIAL HISTORY: She is and lives at assisted living. No alcohol, no illicit drugs. REVIEW OF SYSTEMS: CONSTITUTIONAL: No fever or chills. No recent weight loss or weight gain. HEENT: No headaches, vision changes, ear pain, nasal congestion or throat pain. RESPIRATORY: No cough, hemoptysis or pleuritic chest pain. CARDIOVASCULAR: No chest pain, palpitations or peripheral edema. GASTROINTESTINAL: No nausea, vomiting, diarrhea, constipation or abdominal pain, but decreased appetite. GENITOURINARY: No dysuria, frequency or flank pain. SKIN: She does have a significant rash on her chest and back. The one on her chest is open. This is not new and has been going on. HEMATOLOGIC: No easy bruising and no transfusion reaction, but she has history of PE and is on blood thinners. ENDOCRINE: No polydipsia, polyuria or polyphagia. No heat or cold intolerance. NEUROLOGIC: No syncope, paresthesias or seizures. PHYSICAL EXAMINATION: VITAL SIGNS: Blood pressure 169/91. Heart rate 70. Respiratory rate 18. Temperature 97.7. Oxygen saturation 95%. GENERAL: Ms. Garcia is an 87-year-old female in no active distress. NEUROLOGIC: The patient is alert, answers questions appropriately. No focal deficits. A little bit weak. CHEST: Lung sounds are clear to auscultation bilaterally. CARDIOVASCULAR: Regular rate and rhythm. Normal S1, S2. ABDOMEN: Soft. Positive bowel sounds. No tenderness to palpation. EXTREMITIES: Lower extremities with no edema. Pulses 2+. Capillary refill is less than 2 seconds. INTEGUMENT: Maculopapular rash on the back and the front, erythematous rash which is actually open and erythematous. I do not see any purulent drainage at this time. LABORATORY: Labs and films are as discussed in history of present illness. ASSESSMENT: 1. Altered mental status, likely secondary to hypothyroidism. Cannot rule out other causes at this time of metabolic encephalopathy. 2. Acute kidney injury secondary to dehydration. 3. History of Graves disease on methimazole with an iatrogenic hypothyroidism at this time. 4. History of deep venous thromboses with inferior vena cava filter placement and Xarelto therapy. PLAN: At this time, the patient will be hydrated utilizing Lactated Ringers. Additionally, I am going to give her one dose of Solu-Medrol 125 mg given her rash and see if this has any improvement. I do not know if this is related to autoimmune disorder and do not know if it is a dermatitis that will be responsive to corticosteroids, however, according to the family, the last time she got IV corticosteroids, the rash did improve. At this point, we will contact endocrinology tomorrow, who is Dr. Jackson in [place]. She has been adjusting her methimazole and we will need some further direction regarding this due to her abnormal labs. I feel like most of her lethargy is probably due to this. I will resume her home medications once they are placed in the computer. Regarding her rash, I am not really sure exactly the etiology. It would be nice to get some sort of biopsy in the outpatient setting. Additionally, since she does have autoimmune disorders and she did have multiple labs drawn last admission which are still showing pending, I will call the lab to see if any of those are back and have just not been placed in the computer as of yet. #[id number] [facility]
[2018-09-11] MEDS ORDERED: IV SET AND CAP CHANGE INJ INJ SCH (21:30)
[2018-09-11] MEDS ORDERED: methylPREDNISolone SODIUM SUC 125 MG/2 ML VIAL IV ONE (21:40)
[2018-09-11] MEDS: LACTATED RINGERS 1,000 ML IVS PRN (22:39)
[2018-09-12] MEDS ORDERED: ALBUTEROL SULFATE 2.5 MG/3 ML VIAL NEB PRN (06:40)
[2018-09-12] MEDS ORDERED: NON-FORMULARY MEDICATION 1 EA MIS (Rivaroxaban [Xarelto] 20 MG) PO SCH (09:00)
[2018-09-12] MEDS ORDERED: [UNRECOGNIZED DRUG - OTHER] PO SCH (09:00)
[2018-09-12] MEDS ORDERED: NON-FORMULARY MEDICATION 1 EA MIS (Potassium Chloride [Micro-K] 10 MEQ) PO SCH (09:00)
[2018-09-12] MEDS ORDERED: RIVAROXABAN 10 MG TAB ONE (09:41)
[2018-09-12] MEDS ORDERED: POTASSIUM CHLORIDE 10 MEQ TAB PO ONE (09:41)
[2018-09-12] MEDS ORDERED: FOLIC ACID,B6,B12 1 TAB ONE (09:41)
[2018-09-12] MEDS: GABAPENTIN 300 MG CAP PO SCH ×2 (10:37→20:22)
[2018-09-12] MEDS: CYPROHEPTADINE HCL TAB 4 MG PO SCH ×2 (10:37→20:22)
[2018-09-12] MEDS: LACTATED RINGERS 1,000 ML IVS PRN ×2 (10:42→22:45)
[2018-09-12] MEDS: CHOLECALCIFEROL PO SCH (10:42)
[2018-09-12] MEDS: HCTZ 25 MG/TRIAMTERENE 37.5 MG 1 EA CAP PO SCH (10:43)
[2018-09-12] MEDS: NON-FORMULARY MEDICATION 1 EA MIS (Fluticasone Furoate-Vilanterol [Breo Ellipta 100-25 Mcg INH SCH (10:43)
[2018-09-12] MEDS: SILVER SULFADIAZINE 1 % 25 GM TUBE TOP SCH ×2 (11:54→20:22)
--- NOTE | 2018-09-12 17:24 | PN ---
DATE: 09/12/18 SUPERVISING PHYSICIAN: David Cochran M.D. SUBJECTIVE: The patient is sitting up in her chair in her room. She is sleeping. She awakens easily. She answers questions appropriately. She is fairly lethargic. Other than the irritation from the rash, she has no complaints of shortness of breath, chest pain, nausea or vomiting. The rash continues to be slightly pruritic. OBJECTIVE: VITAL SIGNS: Temperature 98, heart rate 72, blood pressure 159/86, respiratory rate 18, O2 sat 96% on room air. RESPIRATORY: Essentially clear to auscultation bilaterally. CARDIAC: Regular rate and rhythm. GASTROINTESTINAL: Abdomen is soft, nondistended, non-tender. Bowel sounds are positive. SKIN: There is a maculopapular rash on the chest and on her back. It has several open places and is extremely erythematous. There is no purulent drainage noted. LABORATORY: Chemistries are basically within normal limits. BUN has improved 22, creatinine 1.12. Bilirubin is slightly elevated at 1.1 with an AST that has improved to 44 and ALT that improved to 95. CBC is unremarkable except she does have a slight left shift on her differential. Wound culture is pending. Lupus panel has been partially resulted and we are awaiting the results from the outside lab to send them to us. ASSESSMENT: 1. Altered mental status, likely secondary to hypothyroidism. Cannot rule out other causes at this time of metabolic encephalopathy. 2. Acute kidney injury secondary to dehydration. 3. History of Graves disease on methimazole with an iatrogenic hypothyroidism at this time. 4. History of deep venous thromboses with inferior vena cava filter placement and Xarelto therapy. PLAN: We will continue present supportive care. I spoke with Dr. Jackson, her developmental training counselor in [place], and she felt that her Methimazole could be decreased to 5 mg daily and to make sure she followed-up with her on September 19 as previously scheduled. Neuro checks have been added and all of her antihistamines have been discontinued except her Periactin which she has been taking for quite some time. I have also titrated down her IV steroids. As soon as we get the results from her lupus panel, will need to contact Dr. Meredith to see if he can get her scheduled for an specialty transformer assembler referral. Otherwise will continue to monitor him closely and follow as needed. #[id number] [facility]
[2018-09-12] MEDS: methylPREDNISolone SODIUM SUC 125 MG/2 ML VIAL IV SCH (20:22)
[2018-09-12] MEDS: ALBUTEROL SULFATE 2.5 MG/3 ML VIAL NEB SCH (21:15)
[2018-09-13] MEDS: CHOLECALCIFEROL PO SCH (09:28)
[2018-09-13] MEDS: RIVAROXABAN 10 MG TAB PO SCH (09:29)
[2018-09-13] MEDS: NON-FORMULARY MEDICATION 1 EA MIS (Fluticasone Furoate-Vilanterol [Breo Ellipta 100-25 Mcg INH SCH (09:29)
[2018-09-13] MEDS: FOLIC ACID,B6,B12 1 TAB PO SCH (09:29)
[2018-09-13] MEDS: GABAPENTIN 300 MG CAP PO SCH ×2 (09:29→21:06)
[2018-09-13] MEDS: HCTZ 25 MG/TRIAMTERENE 37.5 MG 1 EA CAP PO SCH (09:29)
[2018-09-13] MEDS: CYPROHEPTADINE HCL TAB 4 MG PO SCH ×2 (09:29→21:06)
[2018-09-13] MEDS: SILVER SULFADIAZINE 1 % 25 GM TUBE TOP SCH ×2 (09:30→21:06)
[2018-09-13] MEDS: methylPREDNISolone SODIUM SUC 125 MG/2 ML VIAL IV SCH (09:30)
[2018-09-13] MEDS: POTASSIUM CHLORIDE 10 MEQ TAB PO SCH (09:30)
--- NOTE | 2018-09-13 14:37 | PN ---
DATE: 09/13/18 SUPERVISING PHYSICIAN: David Cochran M.D. SUBJECTIVE: The patient is sitting up in bed. She is much more alert and with it today. Her daughter is quite concerned about discharge back to [facility] and worried that she may need sitters for treatment on her rash. I told her we would make sure that her cultures were back on her skin as well as a plan in place prior to her discharge. The patient has no complaints of chest pain, shortness of breath, nausea or vomiting, and the daughter does agree that she is thmuch more alert today. OBJECTIVE: VITAL SIGNS: Temperature 98, heart rate 69, blood pressure 151/78, respiratory rate 16, O2 sat 95% on room air. RESPIRATORY: Essentially clear to auscultation bilaterally. CARDIAC: Regular rate and rhythm. SKIN: She continues to have the erythematous rash over her chest and back. There are no blisters noted at this time, although there are some areas that have some fluffing of the skin from per previous blister. No drainage noted. No fluctuance noted. NEUROLOGICAL: She is awake, alert, and oriented x3. LABORATORY: Her preliminary wound culture shows rare polymorphonuclear leukocytes and no organ is seen. Her lupus panel has been resulted and her striated muscle AB is negative. Her myocardial ABIF is negative. Parietal cell AB screen is less than 20. Her C3 serum is 140, C4 serum is 25. Thyroid peroxidase is 1. Rheumatoid factor less than 14.Sjogren's antibodies SSA less than 1. Sjogren's antibodies SSB is less than 1. SM antibodies less than 1. SM/RMP antibody less than 1. SCL-70 less than 1. Ribosomal P protein AB less than 1. Reticulin IgA negative. Mitochondrial AB negative. All other labs and films have been reviewed via the EMR. ASSESSMENT: 1. Altered mental status, likely secondary to hypothyroidism. Cannot rule out other causes at this time of metabolic encephalopathy. 2. Acute kidney injury secondary to dehydration. 3. History of Graves disease on methimazole with an iatrogenic hypothyroidism at this time. 4. History of deep venous thromboses with inferior vena cava filter placement and Xarelto therapy. 5. Erythematous pruritic rash over entire body that has been there since the first of June 2018. No new medications have been started other than her Methimazole was started in February of 2019. Initial wound cultures are negative and her lupus panel is negative. PLAN: We will continue present supportive care. I spoke with her primary care physician, Dr. Meredith, this morning and he felt that after discharge the patient could be followed up with him and either he could send to Infectious Disease or to a social worker clinical. She does have a followup with her meat inspector for Grave's disease and her Methimazole dosing on the . She needs to have her antihistamines held except for her Periactin. I have also titrated down her IV steroids and she will need to go home on 40 mg of prednisone until Dr. Meredith gets her an appointment with Dermatology. It will be less sedating than any of the antihistamines. I will have physical therapy evaluate her this afternoon to make sure she is safe for discharge. We will need to get an appointment with Dr. Meredith as soon as possible next week and hopefully she can be discharged tomorrow or the next day. I will talk to the daughter to have a plan in place for her discharge to [facility] and we will continue to monitor her closely and follow as needed. #[id number] [facility]
[2018-09-13] MEDS: ALBUTEROL SULFATE 2.5 MG/3 ML VIAL NEB SCH (21:00)
[2018-09-13] MEDS: methylPREDNISolone SODIUM SUC 40 MG/ML VIAL IV SCH (21:06)
[2018-09-14] MEDS: LACTATED RINGERS 1,000 ML IVS PRN (00:25)
[2018-09-14] MEDS: NON-FORMULARY MEDICATION 1 EA MIS (Fluticasone Furoate-Vilanterol [Breo Ellipta 100-25 Mcg INH SCH (09:15)
[2018-09-14] MEDS: methylPREDNISolone SODIUM SUC 40 MG/ML VIAL IV SCH (09:15)
[2018-09-14] MEDS: HCTZ 25 MG/TRIAMTERENE 37.5 MG 1 EA CAP PO SCH (09:15)
[2018-09-14] MEDS: CYPROHEPTADINE HCL TAB 4 MG PO SCH (09:15)
[2018-09-14] MEDS: CHOLECALCIFEROL PO SCH (09:15)
[2018-09-14] MEDS: POTASSIUM CHLORIDE 10 MEQ TAB PO SCH (09:15)
[2018-09-14] MEDS: RIVAROXABAN 10 MG TAB PO SCH (09:15)
[2018-09-14] MEDS: GABAPENTIN 300 MG CAP PO SCH (09:15)
[2018-09-14] MEDS: FOLIC ACID,B6,B12 1 TAB PO SCH (09:15)
[2018-09-14] MEDS: SILVER SULFADIAZINE 1 % 25 GM TUBE TOP SCH (09:15)
[2018-09-14 11:09] VITALS: TEMP 98.1; O2SAT 96
[2018-09-14 15:05] VITALS: BP 158/77
--- NOTE | 2018-09-15 12:10 | DS ---
SUPERVISING PHYSICIAN: David Cochran MD DISCHARGE DIAGNOSES: 1. Altered mental status, likely secondary to hypothyroidism. Cannot rule out other causes at this time of metabolic encephalopathy. 2. Acute kidney injury secondary to dehydration. 3. History of Graves disease on methimazole with an iatrogenic hypothyroidism at this time. 4. History of deep venous thromboses with inferior vena cava filter placement and Xarelto therapy. 5. Erythematous pruritic rash over entire body that has been there since the first June 2018. No new medications have been started other than her Methimazole was started in March of 2018. Initial wound cultures are negative and her lupus panel is negative. HISTORY OF PRESENT ILLNESS: : This is an 87-year-old female who came to the Emergency Room due to increasing lethargy. She lives at [facility]. Her home health nurse saw her and she had a difficult time waking her up. She came to the Emergency Room. CT scan of her brain was unremarkable. Chest x-ray showed no acute cardiopulmonary process. In the Emergency Room, her labs showed a white count of 6.6, hemoglobin 13.5, platelet count 258. Chemistries showed a mild elevation in BUN at 27. She also had an elevation in her AST and ALT at 53 and 98 respectively. She was diagnosed in March with Graves disease and put on methimazole. She was unable to do her followup appointment with Dr. Jackson, the form carpenter in [place], due to being in the hospital for pneumonia. Since then a repeat TSH and T4 as done earlier in the month and the TSH was elevated with T4 low. They reduced her methimazole and on the date of admission another TSH and T4 were obtained. Her TSH was greater than 49.6 and her T4 was less than 0.05. Her methimazole was stopped until Dr. Jackson could be contacted. Additionally, she also has a rash on her chest that started the first of June. It has actually gone from her chest to her back and she has scratched it quite a bit. There were actually some blisters on her back. She has been on steroids as well as several different topical creams and has not gotten any better. She has not been evaluated by a medical clerk. Her previous admission, a lupus panel was done and initially those labs were not back. She does have a followup with her form carpenter on 09/19/18 to address her methimazole dosing. She was admitted to the hospital in stable. condition. HOSPITAL COURSE: The patient was admitted to the hospital and neuro checks were done. She was hydrated with lactated ringers and she was given an initial dose of Solu-Medrol and then received a tapered dose and today she received a p.o. dose of 40 mg of prednisone. She was taken off all of her antihistamines as that may have contributed to her lethargy. She was continued on her Periactin as she has been on that for quite some time. Dr. Jackson was contacted and she would like to have the patient's methimazole decreased to 5 mg daily and to make sure she follows up with her appointment next week. Over the course of the next few days her mental status improved. She became quite alert and oriented. Physical therapy felt she would be safe to go home with some physical therapy and she will be discharged back to [facility] today in stable condition. LABORATORY: WBCs have been stable, yesterday was 7,900 with a stable hemoglobin and hematocrit of 14 and 41.4 respectively. Her chemistries were basically within normal limits with the exception of her initial chloride was slightly low at 99 but is now 101. Bilirubin did slightly elevate to 1.1 and her initial AST was 53 with an ALT of 98. Now, AST is 44 and ALT is 95. Her TSH is greater than 49.6 with a T4 of less than 0.5. Her urinalysis did have a 1+ budding yeast with a trace of leukocyte esterase. Her chest wound culture showed normal skin tana but no microorganisms seen. A lupus panel was basically within normal limits. RADIOLOGY: As per the history of present illness. DISCHARGE PLAN: The patient will be discharged back to [facility] in stable condition. She is to resume her previous diet except for the next few days she is to be on a low iodine diet as she is to have a thyroid scan with iodine uptake on Monday. Instructions were given for her diet for no seafood, no added salt and no iodine added to her diet. She is supposed to be n.p.o. at midnight on the morning of Monday, September 17. She is to return to the hospital to have a thyroid scan with iodine at [facility] on Monday morning. She is also to hold her methimazole until after completion of her thyroid scan. She has a followup appointment with Dr. Dwight Meredith at 2:45 on 09/18/18. In addition to her home medications, she is to reduce her methimazole dosage to 5 mg daily at the request of Dr. Jackson. I have also put her on prednisone 40 mg daily and after seeing Dr. Meredith or Dr. Jackson or a specialist to evaluate her rash, her steroids can be titrated down. She is to return to the hospital or followup with Dr. Meredith for any problems or complications. It also needs to be clarified, physical therapy did recommend that she have physical therapy at the assisted living [facility] and I am not sure if she has home health but it may be beneficial for her to have physical therapy at [facility]. DISCHARGE MEDICATIONS: 1. Potassium chloride. 2. Folic acid. 3. Gabapentin. 4. Magnesium. 5. Xarelto. 6. Albuterol sulfate. 7. Cyproheptadine. 8. Methimazole. 9. Nystatin powder. 10. Albuterol nebs. 11. Triamterene/Hydrochlorothiazide. 12. Silvadene. 13. Breo Ellipta 14. Vitamin D3 tablet. 15. Prednisone. [facility][id number] [facility]
== END 2018-09-14 15:00 ==
LOC: ER 14:42 → MS 20:25
PROVIDERS: ADMIT Nurse Practitioner; ATTEND Nurse Practitioner Acute Care
DX: E86.0 Dehydration (principal); N17.9 Acute kidney failure, unspecified; R41.82 Altered mental status, unspecified; E05.00 Thyrotoxicosis with diffuse goiter without thyrotoxic crisis or storm; E03.2 Hypothyroidism due to medicaments and other exogenous substances; T38.2X5A Adverse effect of antithyroid drugs, initial encounter; L53.9 Erythematous condition, unspecified; L29.9 Pruritus, unspecified; K21.9 Gastro-esophageal reflux disease without esophagitis; J45.909 Unspecified asthma, uncomplicated; Z79.01 Long term (current) use of anticoagulants; Z79.51 Long term (current) use of inhaled steroids; Z79.899 Other long term (current) drug therapy; Z88.0 Allergy status to penicillin; Z88.6 Allergy status to analgesic agent; Z86.718 Personal history of other venous thrombosis and embolism; Z95.828 Presence of other vascular implants and grafts; Z85.528 Personal history of other malignant neoplasm of kidney; Z90.5 Acquired absence of kidney; Z90.49 Acquired absence of other specified parts of digestive tract; Z90.710 Acquired absence of both cervix and uterus; Z82.49 Family history of ischemic heart disease and other diseases of the circulatory system; Z82.5 Family history of asthma and other chronic lower respiratory diseases
CPT/HCPCS: 96361 ×3; 96374; 96376 ×3; J7611; J1030 ×2; J2930 ×3; J7030; J7120 ×4; 82553; 80053 ×2; 36415; 81001; 85025 ×2; 82550; 87070; 87205; 84443; 84436; 84484; 71045; 70450; 94640; 97530; 97116 ×2; G8978; G8979; 97162; 99285; 93005; G0378

== ENCOUNTER → 2018-09-17 | Outpatient (CLI) | payer MEDICARE, OTHER ==
--- NOTE | 2018-09-18 11:52 | NM ---
EXAM DESCRIPTION: Thyroid Uptake Scan. Nuclear Medicine. CLINICAL HISTORY: HYPERTHYROIDISM. Patient on suppression therapy for hyperthyroidism but did not stop medication prior to beginning of the exam on 09/17/2018. COMPARISON: Ultrasound of the thyroid gland 03/07/2018. TECHNIQUE: Patient was given 200 uCi of iodine 123 radiopharmaceutical orally. Percentage of activity in the thyroid gland was measured at 4 hr. Anterior and oblique gamma camera images were obtained of the thyroid gland at 4 hr. Activity was again measured at 24 hr. Repeat anterior and oblique gamma camera images also. Examination dated on 09/18/2018. FINDINGS: Diffuse increased activity/uptake noted in both thyroid lobes (with slightly less uptake in the isthmus), on both the 4 hour and 24-hour images. Uptake at 4 hours was 33.7% (normal between 4 - 15%). Uptake at 24 hours was 47.4%. (Normal uptake 8-30%). No ectopic activity in the soft tissues. IMPRESSION: Diffuse hyperthyroidism with diffuse increased activity in the thyroid gland and abnormal increased uptake in the thyroid gland at 4 hours and 24 hours. This result is despite patient continuing on suppression therapy until the exam was begun on 09/17/2018. Electronically signed by: Blayne Sanchez MD 09/18/2018 11:49 AM CDT
== END ==
LOC: NM 08:09
PROVIDERS: ATTEND Nurse Practitioner Acute Care
DX: E03.9 Hypothyroidism, unspecified (principal); E05.90 Thyrotoxicosis, unspecified without thyrotoxic crisis or storm
CPT/HCPCS: 78012; A9516

== ENCOUNTER 2018-09-24 19:02 | Emergency (ER) | payer MEDICARE, OTHER ==
[2018-09-24 20:17] VITALS: TEMP 97.9
[2018-09-24] MEDS ORDERED: SODIUM CHLORIDE 0.9% 500ML 500 ML IVS ONE (21:28)
--- NOTE | 2018-09-24 22:27 | ED.PDOC ---
History of Present Illness - General Chief Complaint: Problem Stated Complaint: increased confusion, possible UTI Time Seen by Provider: 09/24/18 21:27 Source: patient Exam Limitations: no limitations - History of Present Illness Initial Comments: Vero Garcia 88 y/o female brought by daughter after she was found to be sleeping a lot,confused,not eating.She has history of Graves disease diagnosed with weight loss and thyroid studies showed the above.She was placed on Methimizole but dose titrated down after she became hypothyroid.She also developed skin rash on her torso and was seen by Die Tester biopsy was taken.Had also been resumed taking cyproheptadine for itching am/pm. Timing/Duration: 24 hours Severity: moderate Improving Factors: nothing Worsening Factors: nothing Associated Symptoms: other - see hpi Allergies/Adverse Reactions: Allergies Codeine Allergy (Intermediate, Verified 09/11/18 21:43) Penicillins Allergy (Intermediate, Verified 09/11/18 21:43) Hives Home Medications: Ambulatory Orders Potassium Chloride [Micro-K] 10 meq PO DAILY 07/10/15 Folic Acid-Vitamin B6-Vitamin [Folbee 2.5-25-1 mg] 1 tab PO DAILY 12/01/16 Gabapentin 300 mg PO BID 12/01/16 Magnesium [Magnesium 250 mg] 1 tab PO DAILY 11/12/17 Rivaroxaban [Xarelto] 20 mg PO DAILY 11/12/17 Albuterol Sulfate Nebs [Proventil Nebs] 2.5 mg NEB Q4H PRN #30 vial 04/03/18 Cyproheptadine HCl [Cyproheptadine Hydrochlor] 4 mg PO BID 08/30/18 Nystatin Powder 1 gm TOP BID PRN #1 bttl 09/03/18 Albuterol Sulfate Nebs [Proventil Nebs] 2.5 mg INH BEDTIME 09/11/18 D3 Vitamin 50 mg PO DAILY 09/11/18 Fluticasone Furoate-Vilanterol [Breo Ellipta 100-25 Mcg/INH] 1 inh INH DAILY 09/11/18 Silver Sulfadiazine [Silvadene] 1 % TOP BID 09/11/18 Triamterene/Hydrochloroth 37.5-25 mg 37 mg PO DAILY 09/11/18 Cyproheptadine HCl [Periactin] 4 mg PO BID tab 07/19/19 Methimazole 5 mg PO DAILY #30 tab 09/14/18 Prednisone 40 mg PO DAILY #84 homero 09/14/18 hydrOXYzine HCl [Atarax] 25 mg PO TID PRN #30 tab 09/24/18 Review of Systems - Review of Systems Constitutional: States: see HPI, malaise EENTM: States: no symptoms reported Respiratory: States: no symptoms reported Cardiology: States: no symptoms reported Gastrointestinal/Abdominal: States: no symptoms reported Genitourinary: States: no symptoms reported Musculoskeletal: States: no symptoms reported Skin: States: see HPI, rash All other Systems: Reviewed and Negative, No Change from Baseline Past Medical History (General) - Patient Medical History Hx Seizures: No Hx Stroke: No Hx Dementia: Yes Hx Asthma: No Hx of COPD: No Hx Cardiac Disorders: Yes - Hx DVT Hx Congestive Heart Failure: No Hx Pacemaker: No Hx Hypertension: No Hx Thyroid Disease: Yes Hx Diabetes: No Hx Gastroesophageal Reflux: Yes Hx Renal Disease: No Hx Cancer: Yes - kidney Hx of HIV: No Hx Hepatitis C: No Hx MRSA: No Surgical History: appendectomy, cholecystectomy, other - right knee - Vaccination History Hx Tetanus, Diphtheria Vaccination: No Hx Influenza Vaccination: Yes Hx Pneumococcal Vaccination: Yes Immunizations Up to Date: Yes - Social History Hx Tobacco Use: No Hx Chewing Tobacco Use: No Hx Alcohol Use: No Hx Substance Use: No Hx Substance Use Treatment: No Hx Depression: No Hx Physical Abuse: No Hx Emotional Abuse: No Hx Suspected Abuse: No - Activities of Daily Living Half-Way/Assisted Living (if applicable):: [place] - Female History Patient : No - Triage Comment ED Triage Comment: pt denies complaints, daughter states Dr Meredith was to call for UTI test Family Medical History - Family History Mother Family History: No Known Living Status: Hx Cardiac Disease: Yes - parents Hx Family Cancer: Yes - esophagus-brother Father Family History: No Known Living Status: Hx Cardiac Disease: Yes Physical Exam - Physical Exam General Appearance: Alert, Comfortable, No apparent distress Eye Exam: bilateral normal Ears, Nose, Throat: hearing grossly normal, normal ENT inspection, normal phar ynx Neck: non-tender, supple, normal inspection Respiratory: lungs clear, normal breath sounds, no respiratory distress Cardiovascular/Chest: normal peripheral pulses, regular rate, rhythm, no murmur Peripheral Pulses: radial,right: 2+, radial,left: 2+ Gastrointestinal/Abdominal: non tender, soft Back Exam: no CVA tenderness, no vertebral tenderness Extremity: no pedal edema, no calf tenderness Neurologic: alert, oriented x 3 Skin Exam: normal color, warm/dry, rash - exfoliated blister anterior chest wall and some on back Progress - Progress Progress: 09/24/18 23:29 Vital Signs - 8 hr 09/24/18 09/24/18 20:13 23:06 Temperature 97.9 F Pulse Rate [ 75 68 Right] Respiratory 16 18 Rate Blood Pressure 155/86 159/91 [Left Arm] O2 Sat by Pulse 96 97 Oximetry - Results/Orders Results/Orders: 09/24/18 20:38 CARDIAC ENZYME GROUP Stat COMPLETE METABOLIC PROFILE Stat CBC (AUTOMATED) W/AUTO DIFF Stat DIFFERENTIAL,MANUAL BY FLAGS Stat 09/24/18 21:27 IV Care:Saline Lock per Protoc QSHIFT 09/24/18 22:15 Catheter:Straight .ONCE Laboratory Results - last 24 hr 09/24/18 09/24/18 09/24/18 20:38 20:38 21:27 WBC 6.9 RBC 3.02 L Hgb 10.4 L Hct 30.9 L MCV 102.1 H MCH 34.6 H MCHC 33.8 RDW 15.1 H Plt Count 232 MPV 7.4 Absolute Neuts (auto) Not Reportable Absolute Lymphs (auto) Not Reportable Absolute Monos (auto) Not Reportable Absolute Eos (auto) Not Reportable Neutrophils % Not Reportable Lymphocytes % Not Reportable Monocytes % Not Reportable Eosinophils % Not Reportable Basophils % Not Reportable Sodium 132 L Potassium 4.1 Chloride 96 L Carbon Dioxide 25 Anion Gap 15.1 BUN 34 H Creatinine 1.03 BUN/Creatinine Ratio 33.0 H Random Glucose 116 H Serum Osmolality 273.1 L Calcium 9.5 Total Bilirubin 0.5 AST 22 ALT 36 Alkaline Phosphatase 51 Creatine Kinase 34 CK-MB (CK-2) 2.7 Troponin I 0.02 B-Natriuretic Peptide 43.1 Serum Total Protein 6.2 L Albumin 3.3 Globulin 2.9 Albumin/Globulin Ratio 1.1 TSH 2.84 Urine Color Urine Appearance Urine pH Ur Specific [place] Urine Protein Urine Glucose (UA) Urine Ketones Urine Blood Urine Nitrite Urine Bilirubin Urine Urobilinogen Ur Leukocyte Esterase Urine RBC Urine WBC Ur Epithelial Cells Urine Bacteria 09/24/18 22:30 WBC RBC Hgb Hct MCV MCH MCHC RDW Plt Count MPV Absolute Neuts (auto) Absolute Lymphs (auto) Absolute Monos (auto) Absolute Eos (auto) Neutrophils % Lymphocytes % Monocytes % Eosinophils % Basophils % Sodium Potassium Chloride Carbon Dioxide Anion Gap BUN Creatinine BUN/Creatinine Ratio Random Glucose Serum Osmolality Calcium Total Bilirubin AST ALT Alkaline Phosphatase Creatine Kinase CK-MB (CK-2) Troponin I B-Natriuretic Peptide Serum Total Protein Albumin Globulin Albumin/Globulin Ratio TSH Urine Color Yellow Urine Appearance Clear Urine pH 7.0 Ur Specific [place] 1.020 Urine Protein Trace Urine Glucose (UA) Negative Urine Ketones Negative Urine Blood Negative Urine Nitrite Negative Urine Bilirubin Negative Urine Urobilinogen 0.2 Ur Leukocyte Esterase Negative Urine RBC 0 Urine WBC 0 Ur Epithelial Cells 1-3 Urine Bacteria 2+ H Discuss all test with patients daughter and also called up her primary Md relayed test results. - EKG/XRAY/CT XRAY: chest - no acute abnormalities Departure - Departure Clinical Impression: Malaise and fatigue, Sleepiness, Skin rash Time of Disposition: 23:33 Disposition: Discharge to Home or Self Care Condition: Fair Departure Forms: ED Discharge - Pt. Copy, Patient Portal Self Enrollment Referrals: Dwight Meredith MD [Primary Care Provider] - 1-2 Weeks Prescriptions: hydrOXYzine HCl [Atarax] 25 mg PO TID PRN #30 tab PRN Reason: Allergies Home Medications: Ambulatory Orders Potassium Chloride [Micro-K] 10 meq PO DAILY 07/10/15 Folic Acid-Vitamin B6-Vitamin [Folbee 2.5-25-1 mg] 1 tab PO DAILY 12/01/16 Gabapentin 300 mg PO BID 12/01/16 Magnesium [Magnesium 250 mg] 1 tab PO DAILY 11/12/17 Rivaroxaban [Xarelto] 20 mg PO DAILY 11/12/17 Albuterol Sulfate Nebs [Proventil Nebs] 2.5 mg NEB Q4H PRN #30 vial 04/03/18 Cyproheptadine HCl [Cyproheptadine Hydrochlor] 4 mg PO BID 08/30/18 Nystatin Powder 1 gm TOP BID PRN #1 bttl 09/03/18 Albuterol Sulfate Nebs [Proventil Nebs] 2.5 mg INH BEDTIME 09/11/18 D3 Vitamin 50 mg PO DAILY 09/11/18 Fluticasone Furoate-Vilanterol [Breo Ellipta 100-25 Mcg/INH] 1 inh INH DAILY 09/11/18 Silver Sulfadiazine [Silvadene] 1 % TOP BID 09/11/18 Triamterene/Hydrochloroth 37.5-25 mg 37 mg PO DAILY 09/11/18 Cyproheptadine HCl [Periactin] 4 mg PO BID tab 09/14/18 Methimazole 5 mg PO DAILY #30 tab 09/14/18 Prednisone 40 mg PO DAILY #84 homero 09/14/18 hydrOXYzine HCl [Atarax] 25 mg PO TID PRN #30 tab 09/24/18 Additional Instructions: DISCONTINUE CYPROHEPTADINE;Give Atarax -25 mg 3 x a day for itching.;Return to Emergency room as needed;continue with rest of home medications;Follow up with primary Md for recheck call for appointment
--- NOTE | 2018-09-24 22:51 | RAD ---
EXAM: XR Chest, 1 View CLINICAL HISTORY: The patient is 88 years old and is Female; ams TECHNIQUE: Frontal view of the chest. COMPARISON: Chest radiograph September 11, 2018. FINDINGS: LUNGS: Unremarkable. No consolidation. PLEURAL SPACE: Unremarkable. No pneumothorax. HEART: Unremarkable. No cardiomegaly. MEDIASTINUM: Unremarkable. BONES/JOINTS: There are degenerative changes of the bones. VASCULATURE: Atherosclerosis of the aorta is present. IMPRESSION: No acute cardiopulmonary process. Electronically signed by: Enedelia Pacheco MD 09/24/2018 10:49 PM CDT
[2018-09-24] MEDS ORDERED: CETIRIZINE HCL 10 MG TAB PO ONE (23:36)
[2018-09-25 00:13] VITALS: BP 162/82; O2SAT 98
== END 2018-09-25 | disposition home or self-care (01) ==
LOC: ER 19:02
DX: R53.81 Other malaise (principal); R21 Rash and other nonspecific skin eruption; F03.90 Unspecified dementia, unspecified severity, without behavioral disturbance, psychotic disturbance, mood disturbance, and anxiety; E07.9 Disorder of thyroid, unspecified; Z86.718 Personal history of other venous thrombosis and embolism; Z79.899 Other long term (current) drug therapy; Z88.0 Allergy status to penicillin; Z88.5 Allergy status to narcotic agent
CPT/HCPCS: 71045; 80053; 81001; 82550; 82553; 83880; 84443; 84484; 85025; J7040

== ENCOUNTER → 2018-11-13 | Outpatient (CLI) | payer MEDICARE, OTHER | LOC: YCFC.O 16:37 | PROVIDERS: ATTEND Family Medicine | DX: N39.0 Urinary tract infection, site not specified (principal); R41.0 Disorientation, unspecified ==

== ENCOUNTER → 2018-11-22 | Outpatient (CLI) | payer MEDICARE, OTHER | LOC: BFHH 11:21 | PROVIDERS: ATTEND Internal Medicine | DX: E04.1 Nontoxic single thyroid nodule (principal) ==

== ENCOUNTER → 2018-12-08 | Outpatient (CLI) | payer MEDICARE, OTHER | LOC: BFHH 12:52 | PROVIDERS: ATTEND Family Medicine | DX: R30.0 Dysuria (principal) ==

== ENCOUNTER → 2018-12-18 | Outpatient (CLI) | payer MEDICARE, OTHER | LOC: BFHH 11:42 | PROVIDERS: ATTEND Family Medicine | DX: N39.0 Urinary tract infection, site not specified (principal) ==

== ENCOUNTER → 2018-12-24 | Outpatient (CLI) | payer MEDICARE, OTHER ==
--- NOTE | 2018-12-24 15:24 | RAD ---
EXAM DESCRIPTION: Chest,2 Views CLINICAL HISTORY: COUGH COMPARISON: Previous study September 24, 2018 TECHNIQUE: PA/lateral FINDINGS: Mild rightward curvature of the T-spine. Heart size is normal with normal pulmonary vascularity. No pleural effusion or pneumothorax. Lungs are clear with no consolidating infiltrate. Lateral view shows intact sternum and T-spine. IMPRESSION: No acute process is identified in the chest. Electronically signed by: Frank Cheatham MD 12/24/2018 3:22 PM CDT
== END ==
LOC: YCFC.O 13:00
PROVIDERS: ATTEND Nurse Practitioner
DX: R05 Cough (principal); R06.00 Dyspnea, unspecified

== ENCOUNTER 2018-12-26 11:48 | Emergency (ER) | payer MEDICARE, OTHER ==
[2018-12-26] MEDS ORDERED: SODIUM CHLORIDE 0.9% (FLUSH) 10 ML SYG IV PRN (11:56)
[2018-12-26] MEDS ORDERED: IPRATROPIUM/ALBUTEROL 3 ML VIAL NEB ONE (11:58)
--- NOTE | 2018-12-26 12:04 | ED.PDOC ---
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 Pt cannot tell me when this began. States she is not having CP or any other pain. She is a poor historian and does not answer any other questions. Per EMS, O2 sat was 92% on RA and was given Solumedrol and 1 Duoneb in route. Allergies/Adverse Reactions: Allergies Codeine Allergy (Intermediate, Verified 09/11/18 21:43) Penicillins Allergy (Intermediate, Verified 09/11/18 21:43) Hives Home Medications: Ambulatory Orders RX: Potassium Chloride [Micro-K] 10 meq PO DAILY 07/10/15 RX: Folic Acid-Vitamin B6-Vitamin [Folbee 2.5-25-1 mg] 1 tab PO DAILY 12/01/16 RX: Gabapentin 300 mg PO BID 12/01/16 RX: Magnesium [Magnesium 250 mg] 1 tab PO DAILY 11/12/17 RX: Rivaroxaban [Xarelto] 20 mg PO DAILY 11/12/17 RX: Albuterol Sulfate Nebs [Proventil Nebs] 2.5 mg NEB Q4H PRN #30 vial 04/03/18 RX: Cyproheptadine HCl [Cyproheptadine Hydrochlor] 4 mg PO BID 08/30/18 RX: Nystatin Powder 1 gm TOP BID PRN #1 bttl 09/03/18 D3 Vitamin 50 mg PO DAILY 09/11/18 RX: Albuterol Sulfate Nebs [Proventil Nebs] 2.5 mg INH BEDTIME 09/11/18 RX: Fluticasone Furoate-Vilanterol [Breo Ellipta 100-25 Mcg/INH] 1 inh INH DAILY 09/11/18 RX: Silver Sulfadiazine [Silvadene] 1 % TOP BID 09/11/18 Triamterene/Hydrochloroth 37.5-25 mg 37 mg PO DAILY 09/11/18 RX: Cyproheptadine HCl [Periactin] 4 mg PO BID tab 09/14/18 RX: Methimazole 5 mg PO DAILY #30 tab 09/14/18 RX: Prednisone 40 mg PO DAILY #84 homero 09/14/18 hydrOXYzine HCl [Atarax] 25 mg PO TID PRN #30 tab 09/24/18 Review of Systems - Review of Systems Unable to Obtain Due To: clinical condition, other - Pt unable to answer ROS questions Past Medical History (General) - Patient Medical History Hx Seizures: No Hx Stroke: No Hx Dementia: Yes Hx Asthma: No Hx of COPD: No Hx Cardiac Disorders: Yes - Hx DVT Hx Congestive Heart Failure: No Hx Pacemaker: No Hx Hypertension: No Hx Thyroid Disease: Yes Hx Diabetes: No Hx Gastroesophageal Reflux: Yes Hx Renal Disease: No Hx Cancer: Yes - kidney Hx of HIV: No Hx Hepatitis C: No Hx MRSA: No - Vaccination History Hx Tetanus, Diphtheria Vaccination: No Hx Influenza Vaccination: Yes Hx Pneumococcal Vaccination: Yes - Social History Hx Tobacco Use: No Hx Chewing Tobacco Use: No Hx Alcohol Use: No Hx Substance Use: No Hx Substance Use Treatment: No Hx Depression: No Hx Physical Abuse: No Hx Emotional Abuse: No Hx Suspected Abuse: No - Female History Patient : No Family Medical History - Family History Father Family History: No Known Living Status: Hx Cardiac Disease: Yes Mother Family History: No Known Living Status: Hx Cardiac Disease: Yes - parents Hx Family Cancer: Yes - esophagus-brother Physical Exam - Physical Exam General Appearance: No apparent distress, Other - Awakes to voice then returns to sleep Ears, Nose, Throat: normal pharynx Neck: non-tender, full range of motion, supple, normal inspection Respiratory: chest non-tender, other - good air movement with coarse BS bilaterally Cardiovascular/Chest: normal peripheral pulses, regular rate, rhythm, other - 2+ bilateral pretibial edema Gastrointestinal/Abdominal: normal bowel sounds, non tender, soft Back Exam: normal inspection, no CVA tenderness Extremity: normal range of motion, non-tender Neurologic: other - awakens to voice, then falls asleep. Progress - Progress Progress: 12/26/18 13:08 Daughter now at bedside. States pt has been SOB and wheezing for the past 2 days. States she gets this occasionally and has been admitted for pneumonia/bronchitis that resolves her syptoms. Was seen by PCP, Dr. Meredith 2 days ago with labs and CXR. Imaging clear and labs good per daughter other than mild dehydration. 12/26/18 13:23 Pt has elevated troponin of 0.9 today. EKG has anterioseptal Q waves, no ST elevation. Will treat for NSTEMI with aspirin and pt currently on Xarelto for h/o DVT's. I have d/w hospitalist, Sukhi Mcdermott, and pt will need to be transferred. Family at bedside and pt is alert and answering all questions now. Family states she has seen Dr. Miller with [facility] in the past and requests transfer to [facility]. 12/26/18 13:28 Chest Xray results Study: Single Frontal Radiograph of the Chest. Indication:short of breath Comparison: December 24, 2018 Impression: Mild cardiomegaly without failure. Atherosclerosis aorta. Mild left basilar atelectasis, otherwise lungs clear. 12/26/18 13:33 ED COURSE: 88 yo F with PMH of Graves Dz and bronchitis and remote h/o DVT, on Xarelto presents with 2 day h/o SOB and cough. Pt initially denies having any CP. EKG shows no ST changes. She has had many previous Troponins here that are all <0.02. Today, troponin is 0.9. Given Aspirin 325 mg in ED. Will transfer for NSTEMI. Family requests [facility] and requests [facility]. Has no h/o CAD. 12/26/18 13:43 Pt has been auto accepted by Dr. Glaser in [facility] ED. 12/26/18 13:47 - Results/Orders Results/Orders: 12/26/18 11:56 Sodium Chloride 0.9% (Flush) [Saline Flush Syringe] 3 ml IV PRN PRN 12/26/18 11:57 IV Care:Saline Lock per Protoc QSHIFT Telemetry ONCE Oxygen Stat 12/26/18 12:00 EKG STAT 12/26/18 12:06 URINALYSIS Stat 12/27/18 09:00 Pulse Ox Daily Laboratory Results - last 24 hr 12/26/18 12/26/18 12/26/18 12:20 12:20 12:46 WBC 9.8 RBC 4.28 Hgb 13.8 Hct 41.8 MCV 97.6 MCH 32.2 H MCHC 33.0 RDW 14.5 Plt Count 209 MPV 8.0 Absolute Neuts (auto) 5.50 Absolute Lymphs (auto) 2.90 Absolute Monos (auto) 0.70 Absolute Eos (auto) 0.60 H Absolute Basos (auto) 0.10 Neutrophils % 56.4 Lymphocytes % 30.0 Monocytes % 6.8 Eosinophils % 6.3 H Basophils % 0.5 PT 13.4 H INR 1.34 H PTT (SP) 34.3 H Sodium 138 Potassium 3.9 Chloride 99 L Carbon Dioxide 26 Anion Gap 16.9 BUN 24 H Creatinine 0.97 BUN/Creatinine Ratio 24.7 H Random Glucose 93 Serum Osmolality 279.4 Calcium 9.9 Magnesium 2.1 Creatine Kinase 305 H* CK-MB (CK-2) 10.6 H* CK-MB (CK-2) % 3.48 Troponin I 0.90 H* B-Natriuretic Peptide 118.0 H TSH 4.60 - EKG/XRAY/CT Comments: NSR, rate 82, nml intervals, anterior Q waves Departure - Departure Clinical Impression: NSTEMI (non-ST elevated myocardial infarction), H/O Graves' disease Dyspnea Qualifiers: Dyspnea type: shortness of breath Qualified Code(s): R06.02 - Shortness of breath; R06.00 - Dyspnea, unspecified; R06.01 - Orthopnea Time of Disposition: 13:30 Disposition: Transfer to Hospital Condition: Fair Departure Forms: ED Discharge - Pt. Copy, Patient Portal Self Enrollment Referrals: Dwight Meredith MD [Primary Care Provider] - 1-2 Weeks Home Medications: Ambulatory Orders RX: Potassium Chloride [Micro-K] 10 meq PO DAILY 07/10/15 RX: Folic Acid-Vitamin B6-Vitamin [Folbee 2.5-25-1 mg] 1 tab PO DAILY 12/01/16 RX: Gabapentin 300 mg PO BID 12/01/16 RX: Magnesium [Magnesium 250 mg] 1 tab PO DAILY 11/12/17 RX: Rivaroxaban [Xarelto] 20 mg PO DAILY 11/12/17 RX: Albuterol Sulfate Nebs [Proventil Nebs] 2.5 mg NEB Q4H PRN #30 vial 04/03/18 RX: Cyproheptadine HCl [Cyproheptadine Hydrochlor] 4 mg PO BID 08/30/18 RX: Nystatin Powder 1 gm TOP BID PRN #1 bttl 09/03/18 D3 Vitamin 50 mg PO DAILY 09/11/18 RX: Albuterol Sulfate Nebs [Proventil Nebs] 2.5 mg INH BEDTIME 09/11/18 RX: Fluticasone Furoate-Vilanterol [Breo Ellipta 100-25 Mcg/INH] 1 inh INH DAILY 09/11/18 RX: Silver Sulfadiazine [Silvadene] 1 % TOP BID 09/11/18 Triamterene/Hydrochloroth 37.5-25 mg 37 mg PO DAILY 09/11/18 RX: Cyproheptadine HCl [Periactin] 4 mg PO BID tab 09/14/18 RX: Methimazole 5 mg PO DAILY #30 tab 09/14/18 RX: Prednisone 40 mg PO DAILY #84 homero 09/14/18 hydrOXYzine HCl [Atarax] 25 mg PO TID PRN #30 tab 09/24/18 Comments: Transferred due to need for cardiology which is not available at this facility Transfer to Outside Facility - Transfer Information Decision to Transfer Date: 12/26/18 Decision to Transfer Time: 13:30 Reason for Transfer: NSTEMI, cardiology Accepting Provider:: Dr. Glaser Accepting Facility: [facility]
--- NOTE | 2018-12-26 12:50 | RAD ---
Study: Single Frontal Radiograph of the Chest. Indication:short of breath Comparison: December 24, 2018 Impression: Mild cardiomegaly without failure. Atherosclerosis aorta. Mild left basilar atelectasis, otherwise lungs clear. Electronically signed by: Garry Reeder MD 12/26/2018 12:49 PM CDT
[2018-12-26] MEDS ORDERED: ASPIRIN TABLET 325 MG TAB PO ONE (13:29)
[2018-12-26 14:20] VITALS: O2SAT 95
[2018-12-26 14:38] VITALS: BP 136/82; TEMP 97
== END 2018-12-26 14:35 | disposition short-term general hospital (02) ==
LOC: ER 11:48
DX: I21.4 Non-ST elevation (NSTEMI) myocardial infarction (principal); R06.02 Shortness of breath; R06.01 Orthopnea; E05.00 Thyrotoxicosis with diffuse goiter without thyrotoxic crisis or storm; F03.90 Unspecified dementia, unspecified severity, without behavioral disturbance, psychotic disturbance, mood disturbance, and anxiety; I51.9 Heart disease, unspecified; K21.9 Gastro-esophageal reflux disease without esophagitis; Z79.01 Long term (current) use of anticoagulants; Z87.01 Personal history of pneumonia (recurrent); Z86.718 Personal history of other venous thrombosis and embolism; Z85.528 Personal history of other malignant neoplasm of kidney; Z79.899 Other long term (current) drug therapy; Z88.0 Allergy status to penicillin; Z88.5 Allergy status to narcotic agent
CPT/HCPCS: 36415; 71045; 80048; 82550; 82553; 83880; 84443; 84484; 85025; 85610; 85730; 93005; 94640; 94760; J7620

== ENCOUNTER 2018-12-31 16:35 | Emergency (ER) | payer MEDICARE, OTHER ==
[2018-12-31] MEDS ORDERED: SODIUM CHLORIDE 0.9% (FLUSH) 10 ML SYG IV PRN (17:41)
--- NOTE | 2018-12-31 17:41 | ED.PDOC ---
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 Family who witnessed the episode state that she was just sitting there, glazed look in her eyes, and was not engaging in answers, there was no complete LOC. No seizure like activity, no bowel or bladder incontinence, no tongue biting, no hx of seizure. Pt was just discharged from [facility] yesterday after cardiac stent placement. Mild cough, intermittent wheezing. Denies f/c, congestion, CP, SOB, abd pain, n/v/d, edema. Allergies/Adverse Reactions: Allergies Codeine Allergy (Intermediate, Verified 09/11/18 21:43) Penicillins Allergy (Intermediate, Verified 09/11/18 21:43) Hives Home Medications: Ambulatory Orders Potassium Chloride [Micro-K] 10 meq PO DAILY 07/10/15 Folic Acid-Vitamin B6-Vitamin [Folbee 2.5-25-1 mg] 1 tab PO DAILY 12/01/16 Gabapentin 300 mg PO BID 12/01/16 Magnesium [Magnesium 250 mg] 1 tab PO DAILY 11/12/17 Rivaroxaban [Xarelto] 20 mg PO DAILY 11/12/17 Albuterol Sulfate Nebs [Proventil Nebs] 2.5 mg NEB Q4H PRN #30 vial 04/03/18 Cyproheptadine HCl [Cyproheptadine Hydrochlor] 4 mg PO BID 08/30/18 Nystatin Powder 1 gm TOP BID PRN #1 bttl 09/03/18 Albuterol Sulfate Nebs [Proventil Nebs] 2.5 mg INH BEDTIME 09/11/18 D3 Vitamin 50 mg PO DAILY 09/11/18 Fluticasone Furoate-Vilanterol [Breo Ellipta 100-25 Mcg/INH] 1 inh INH DAILY 09/11/18 Silver Sulfadiazine [Silvadene] 1 % TOP BID 09/11/18 Triamterene/Hydrochloroth 37.5-25 mg 37 mg PO DAILY 09/11/18 Cyproheptadine HCl [Periactin] 4 mg PO BID tab 09/14/18 Methimazole 5 mg PO DAILY #30 tab 09/14/18 Prednisone 40 mg PO DAILY #84 homero 09/14/18 hydrOXYzine HCl [Atarax] 25 mg PO TID PRN #30 tab 09/24/18 Review of Systems - Review of Systems Constitutional: Denies: chills, fever EENTM: Denies: nose congestion, throat pain Respiratory: States: cough, wheezing. Denies: short of breath Cardiology: Denies: chest pain, edema Gastrointestinal/Abdominal: Denies: abdominal pain, constipation, diarrhea, vomiting Genitourinary: Denies: dysuria, frequency Musculoskeletal: Denies: back pain, muscle pain, neck pain Skin: Denies: lesions, rash Neurological: States: other - episode of unresponsiveness. Denies: headache, numbness, weakness Endocrine: Denies: increased thirst, increased urine Past Medical History (General) - Patient Medical History Hx Seizures: No Hx Stroke: No Hx Dementia: Yes Hx Asthma: No Hx of COPD: No Hx Cardiac Disorders: Yes - Hx DVT Hx Congestive Heart Failure: No Hx Pacemaker: No Hx Hypertension: No Hx Thyroid Disease: Yes Hx Diabetes: No Hx Gastroesophageal Reflux: Yes Hx Renal Disease: No Hx Cancer: Yes - kidney Hx of HIV: No Hx Hepatitis C: No Hx MRSA: No - Vaccination History Hx Tetanus, Diphtheria Vaccination: No Hx Influenza Vaccination: Yes Hx Pneumococcal Vaccination: Yes - Social History Hx Tobacco Use: No Hx Chewing Tobacco Use: No Hx Alcohol Use: No Hx Substance Use: No Hx Substance Use Treatment: No Hx Depression: No Hx Physical Abuse: No Hx Emotional Abuse: No Hx Suspected Abuse: No - Female History Patient : No Family Medical History - Family History Mother Family History: No Known Living Status: Hx Cardiac Disease: Yes - parents Hx Family Cancer: Yes - esophagus-brother Father Family History: No Known Living Status: Hx Cardiac Disease: Yes Physical Exam - Physical Exam General Appearance: Alert, No apparent distress Eye Exam: bilateral normal Neck: non-tender, full range of motion, supple, normal inspection Respiratory: chest non-tender, no respiratory distress, no accessory muscle use, wheezing - R side Cardiovascular/Chest: normal peripheral pulses, regular rate, rhythm, no edema, no gallop, no JVD, no murmur Peripheral Pulses: radial,right: 2+, radial,left: 2+ Gastrointestinal/Abdominal: normal bowel sounds, non tender, soft, no organomegaly, no pulsatile mass, other - no distention, guarding, rebound Back Exam: normal inspection, no CVA tenderness, no vertebral tenderness Extremity: normal range of motion, non-tender, normal inspection, no pedal edema, no calf tenderness Neurologic: no motor/sensory deficits, alert Skin Exam: normal color, warm/dry Progress - Progress Progress: 12/31/18 17:42 NIH of zero, sx resolved, will not give activase. 12/31/18 18:35 Pt does not have any SIRS criteria, will treat pneumonia with levaquin, will obtain blood cultures. Discussed with family results and need for transfer, all questions and concerns addressed. Pt and family agree with plan. 12/31/18 19:[address] Coffey, ED physician at [facility], accepts pt for transfer. Maribel Blair MD Emergency Medicine Physician Billing Number [id number] - Results/Orders Results/Orders: 12/31/18 17:30 EKG STAT 12/31/18 17:41 IV Care:Saline Lock per Protoc QSHIFT Telemetry .ONCE Sodium Chloride 0.9% (Flush) [Saline Flush Syringe] 10 ml IV PRN PRN 12/31/18 17:45 EKG STAT 12/31/18 18:49 BLOOD CULTURE Stat 12/31/18 18:50 Sodium Chloride 0.9% 1000ML [Ns 1000 ml] 1,000 ml IVS ONCE levoFLOXacin 750MG IV [Levaquin 750MG IV] 750 mg Premix Bag 1 bag IVPB ONCE Laboratory Results - last 24 hr 12/31/18 12/31/18 12/31/18 16:50 16:50 16:50 WBC 9.2 RBC 4.12 L Hgb 13.1 Hct 39.5 MCV 95.9 MCH 31.8 H MCHC 33.2 RDW 14.2 Plt Count 254 MPV 8.7 Absolute Neuts (auto) 8.30 H Absolute Lymphs (auto) 0.60 L Absolute Monos (auto) 0.20 Absolute Eos (auto) 0.10 Absolute Basos (auto) 0.00 Neutrophils % 90.1 H Lymphocytes % 7.0 L Monocytes % 2.2 Eosinophils % 0.6 L Basophils % 0.1 PT INR PTT (SP) Sodium 139 Potassium 4.4 Chloride 103 Carbon Dioxide 23 Anion Gap 17.4 BUN 40 H Creatinine 1.39 H BUN/Creatinine Ratio 28.8 H POC Glucose Random Glucose 174 H Serum Osmolality 291.5 Calcium 9.8 Total Bilirubin 0.5 AST 34 ALT 26 Alkaline Phosphatase 43 Troponin I 0.28 H* Serum Total Protein 6.7 Albumin 3.6 Globulin 3.1 Albumin/Globulin Ratio 1.2 Urine Color Urine Appearance Urine pH Ur Specific [place] Urine Protein Urine Glucose (UA) Urine Ketones Urine Blood Urine Nitrite Urine Bilirubin Urine Urobilinogen Ur Leukocyte Esterase Urine RBC Urine WBC Ur Epithelial Cells Amorphous Sediment Urine Bacteria Urine Mucus 12/31/18 12/31/18 12/31/18 16:50 17:58 18:17 WBC RBC Hgb Hct MCV MCH MCHC RDW Plt Count MPV Absolute Neuts (auto) Absolute Lymphs (auto) Absolute Monos (auto) Absolute Eos (auto) Absolute Basos (auto) Neutrophils % Lymphocytes % Monocytes % Eosinophils % Basophils % PT 10.3 INR 1.03 PTT (SP) 22.5 Sodium Potassium Chloride Carbon Dioxide Anion Gap BUN Creatinine BUN/Creatinine Ratio POC Glucose 175 H Random Glucose Serum Osmolality Calcium Total Bilirubin AST ALT Alkaline Phosphatase Troponin I Serum Total Protein Albumin Globulin Albumin/Globulin Ratio Urine Color Yellow Urine Appearance Clear Urine pH 7.0 Ur Specific [place] 1.020 Urine Protein Negative Urine Glucose (UA) Negative Urine Ketones Negative Urine Blood Negative Urine Nitrite Negative Urine Bilirubin Negative Urine Urobilinogen 0.2 Ur Leukocyte Esterase Negative Urine RBC 0 Urine WBC 0 Ur Epithelial Cells 1-3 Amorphous Sediment 1+ Urine Bacteria 0 Urine Mucus Moderate CXR: EXAM DESCRIPTION: Chest,2 Views CLINICAL HISTORY: wheezing COMPARISON: Previous study December 26, 2018 TECHNIQUE: PA/lateral FINDINGS: Right hemidiaphragm is elevated. Heart size is large with normal pulmonary vascularity. No pleural effusion or pneumothorax. Increased density in the right infrahilar and left pericardiac regions may be partial volume loss. Right infrahilar region appears more dense than on the previous study. Lateral view shows some density over the lower T-spine which could be mild pneumonic infiltrate. Lateral view shows intact sternum and T-spine. IMPRESSION: Mild right basilar infiltrate. Electronically signed by: Frank Cheatham MD 12/31/2018 6:[address] [employer]GANIZATION DEVELOPMENT CONSULTANT CT head: EXAM DESCRIPTION: Head CT without contrast CLINICAL HISTORY: ams COMPARISON: Previous CT head September 11, 2018 TECHNIQUE: Noncontrast head CT was performed with routine protocol. FINDINGS: Normal sam-white matter differentiation. Ventricles and sulci are large consistent with age-related cerebral volume loss. Low density white matter indicates chronic microvascular ischemic disease with pattern unchanged compared to previous. No high density hemorrhage, focal edema or shift of the midline. No sulcal effacement. Normal orbital contents. Basilar cisterns appear clear. Intact calvarium with no fracture or lytic lesion. Normal aeration of tympanic cavities and mastoid air cells. No fluid levels in the paranasal sinuses. Skull base appears intact. Symmetrical internal auditory canals. Coronal and sagittal reformatted images confirm the findings. IMPRESSION: No acute intracranial pathologic process. This exam was performed according to our departmental dose-optimization program, which includes automated exposure control, adjustment of the mA and/or kV according to patient size and/or use of iterative reconstruction technique. Total DLP equals 767.83 mGycm. Electronically signed by: Frank Cheatham MD 12/31/2018 6:15 PM ORGANIZATION DEVELOPMENT CONSULTANT - EKG/XRAY/CT EKG: Sinus, nonspecific ST T wave Chg Departure - Departure Clinical Impression: SONY (acute kidney injury), Elevated troponin, Status post cardiac catheterization Pneumonia Qualifiers: Pneumonia type: due to unspecified organism Laterality: right Lung location: lower lobe of lung Qualified Code(s): J18.1 - Lobar pneumonia, unspecified organism Time of Disposition: 18:52 Disposition: Transfer to Hospital Condition: Fair Referrals: Dwight Meredith MD [Primary Care Provider] - 1-2 Weeks Home Medications: Ambulatory Orders Potassium Chloride [Micro-K] 10 meq PO DAILY 07/10/15 Folic Acid-Vitamin B6-Vitamin [Folbee 2.5-25-1 mg] 1 tab PO DAILY 12/01/16 Gabapentin 300 mg PO BID 12/01/16 Magnesium [Magnesium 250 mg] 1 tab PO DAILY 11/12/17 Rivaroxaban [Xarelto] 20 mg PO DAILY 11/12/17 Albuterol Sulfate Nebs [Proventil Nebs] 2.5 mg NEB Q4H PRN #30 vial 04/03/18 Cyproheptadine HCl [Cyproheptadine Hydrochlor] 4 mg PO BID 08/30/18 Nystatin Powder 1 gm TOP BID PRN #1 bttl 09/03/18 Albuterol Sulfate Nebs [Proventil Nebs] 2.5 mg INH BEDTIME 09/11/18 D3 Vitamin 50 mg PO DAILY 09/11/18 Fluticasone Furoate-Vilanterol [Breo Ellipta 100-25 Mcg/INH] 1 inh INH DAILY 09/11/18 Silver Sulfadiazine [Silvadene] 1 % TOP BID 09/11/18 Triamterene/Hydrochloroth 37.5-25 mg 37 mg PO DAILY 09/11/18 Cyproheptadine HCl [Periactin] 4 mg PO BID tab 09/14/18 Methimazole 5 mg PO DAILY #30 tab 09/14/18 Prednisone 40 mg PO DAILY #84 homero 09/14/18 hydrOXYzine HCl [Atarax] 25 mg PO TID PRN #30 tab 09/24/18
--- NOTE | 2018-12-31 18:17 | CT ---
EXAM DESCRIPTION: Head CT without contrast CLINICAL HISTORY: ams COMPARISON: Previous CT head September 11, 2018 TECHNIQUE: Noncontrast head CT was performed with routine protocol. FINDINGS: Normal sam-white matter differentiation. Ventricles and sulci are large consistent with age-related cerebral volume loss. Low density white matter indicates chronic microvascular ischemic disease with pattern unchanged compared to previous. No high density hemorrhage, focal edema or shift of the midline. No sulcal effacement. Normal orbital contents. Basilar cisterns appear clear. Intact calvarium with no fracture or lytic lesion. Normal aeration of tympanic cavities and mastoid air cells. No fluid levels in the paranasal sinuses. Skull base appears intact. Symmetrical internal auditory canals. Coronal and sagittal reformatted images confirm the findings. IMPRESSION: No acute intracranial pathologic process. This exam was performed according to our departmental dose-optimization program, which includes automated exposure control, adjustment of the mA and/or kV according to patient size and/or use of iterative reconstruction technique. Total DLP equals 767.83 mGycm. Electronically signed by: Frank Cheatham MD 12/31/2018 6:15 PM [facility]
--- NOTE | 2018-12-31 18:18 | RAD ---
EXAM DESCRIPTION: Chest,2 Views CLINICAL HISTORY: wheezing COMPARISON: Previous study December 26, 2018 TECHNIQUE: PA/lateral FINDINGS: Right hemidiaphragm is elevated. Heart size is large with normal pulmonary vascularity. No pleural effusion or pneumothorax. Increased density in the right infrahilar and left pericardiac regions may be partial volume loss. Right infrahilar region appears more dense than on the previous study. Lateral view shows some density over the lower T-spine which could be mild pneumonic infiltrate. Lateral view shows intact sternum and T-spine. IMPRESSION: Mild right basilar infiltrate. Electronically signed by: Frank Cheatham MD 12/31/2018 6:17 PM [facility]
[2018-12-31] MEDS ORDERED: ASPIRIN TABLET 325 MG TAB PO ONE (18:49)
[2018-12-31] MEDS ORDERED: SODIUM CHLORIDE 0.9% 1000ML 1,000 ML IVS ONE (18:50)
[2018-12-31] MEDS ORDERED: levoFLOXacin 750MG IV 750 MG in PREMIX BAG 1 BAG IVPB ONE (18:50)
[2018-12-31 20:11] VITALS: BP 135/85; TEMP 97.1; O2SAT 97
== END 2018-12-31 20:45 | disposition short-term general hospital (02) ==
LOC: ER 16:35
DX: J18.1 Lobar pneumonia, unspecified organism (principal); N17.9 Acute kidney failure, unspecified; R79.89 Other specified abnormal findings of blood chemistry; F03.90 Unspecified dementia, unspecified severity, without behavioral disturbance, psychotic disturbance, mood disturbance, and anxiety; E07.9 Disorder of thyroid, unspecified; K21.9 Gastro-esophageal reflux disease without esophagitis; Z95.5 Presence of coronary angioplasty implant and graft; Z86.718 Personal history of other venous thrombosis and embolism; Z85.528 Personal history of other malignant neoplasm of kidney; Z79.899 Other long term (current) drug therapy; Z88.5 Allergy status to narcotic agent; Z88.0 Allergy status to penicillin
CPT/HCPCS: 70450; 71046; 80053; 81001; 82948; 84484; 85025; 85610; 85730; 87040; 93005; J1956; J7030

== ENCOUNTER 2019-01-19 20:13 | Emergency (ER) | payer MEDICARE, OTHER ==
--- NOTE | 2019-01-19 21:00 | ED.PDOC ---
History of Present Illness - General Chief Complaint: General Stated Complaint: takes Xarelto, bleeding easily Time Seen by Provider: 01/19/19 20:34 Source: patient, family Exam Limitations: no limitations - History of Present Illness Initial Comments: 88 yo F who presents for rectal bleeding, BRB in nature, presents on stool and when wiping, onset this evening. Pt is on Xarelto for hx of DVT, plavix and asa for recent coronary stent placed a month ago. Pt has had easy bleeding since that time, including a nosebleed yesterday that resolved on its own. Pt states however she feels fine and is asymptomatic at this time. Denies f/c, CP, SOB, lightheadedness, syncope, abd pain, n/v/d, edema, hematuria. Allergies/Adverse Reactions: Allergies Codeine Allergy (Intermediate, Verified 09/11/18 21:43) Penicillins Allergy (Intermediate, Verified 09/11/18 21:43) Hives NSAIDs Allergy (Verified 01/19/19 20:41) Home Medications: Ambulatory Orders Potassium Chloride [Micro-K] 10 meq PO DAILY 07/10/15 Folic Acid-Vitamin B6-Vitamin [Folbee 2.5-25-1 mg] 1 tab PO DAILY 12/01/16 Gabapentin 300 mg PO BID 12/01/16 Magnesium [Magnesium 250 mg] 1 tab PO DAILY 11/12/17 Rivaroxaban [Xarelto] 15 mg PO DAILY 11/12/17 Albuterol Sulfate Nebs [Proventil Nebs] 2.5 mg NEB Q4H PRN #30 vial 04/03/18 Nystatin Powder 1 gm TOP BID PRN #1 bttl 09/03/18 Albuterol Sulfate Nebs [Proventil Nebs] 2.5 mg INH BEDTIME 09/11/18 D3 Vitamin 50 mg PO DAILY 09/11/18 Triamterene/Hydrochloroth 37.5-25 mg 37 mg PO DAILY 09/11/18 Methimazole 5 mg PO DAILY #30 tab 09/14/18 hydrOXYzine HCl [Atarax] 25 mg PO TID PRN #30 tab 09/24/18 Aspirin [Aspirin Childrens] 81 mg PO 01/19/19 Atorvastatin Calcium [Lipitor] 10 mg PO 01/19/19 Bioflavonoid Products [Vitamin C] 1 chw PO 01/19/19 Cholecalciferol [Vitamin D-3] 2,000 unit PO 01/19/19 Clopidogrel Bisulfate [Plavix] 75 mg PO QD 01/19/19 Fluticasone Furoate-Vilanterol [Breo Ellipta 100-25 Mcg/INH] 01/19/19 Metoprolol Succinate [Metoprolol Succinate ER] 25 mg PO 01/19/19 Montelukast [Singulair] 10 mg PO 01/19/19 Prednisone 5 mg PO DAILY 01/19/19 Review of Systems - Review of Systems Constitutional: Denies: chills, fever EENTM: States: no symptoms reported Respiratory: Denies: cough, short of breath Cardiology: Denies: chest pain, palpitations, syncope Gastrointestinal/Abdominal: Denies: abdominal pain, diarrhea, nausea, vomiting Genitourinary: Denies: dysuria, frequency, hematuria Musculoskeletal: Denies: back pain, neck pain Skin: Denies: lesions, rash Neurological: Denies: headache, numbness, weakness Endocrine: Denies: increased thirst, increased urine Hematologic/Lymphatic: States: easy bleeding, easy bruising Past Medical History (General) - Patient Medical History Hx Seizures: No Hx Stroke: No Hx Dementia: Yes Hx Asthma: No Hx of COPD: No Hx Cardiac Disorders: Yes - Hx DVT Hx Congestive Heart Failure: No Hx Pacemaker: No Hx Hypertension: No Hx Thyroid Disease: Yes Hx Diabetes: No Hx Gastroesophageal Reflux: Yes Hx Renal Disease: No Hx Cancer: Yes - kidney Hx of HIV: No Hx Hepatitis C: No Hx MRSA: No Surgical History: cholecystectomy, other - Vaccination History Hx Tetanus, Diphtheria Vaccination: No Hx Influenza Vaccination: Yes Hx Pneumococcal Vaccination: Yes Immunizations Up to Date: Yes - Social History Hx Tobacco Use: No Hx Chewing Tobacco Use: No Hx Alcohol Use: No Hx Substance Use: No Hx Substance Use Treatment: No Hx Depression: No Feels Threatened In Home Enviroment: No Feels Threatened In a Relationship: No Hx Physical Abuse: No Hx Emotional Abuse: No Hx Suspected Abuse: No - Activities of Daily Living Snf/Assisted Living (if applicable):: [facility] ([facility]):: None - Female History Patient is a Female of Child Bearing Age (10 -59 yrs old): No Patient : No - Triage Comment ED Triage Comment: arrived with sitter and son Family Medical History - Family History Mother Family History: No Known Living Status: Hx Cardiac Disease: Yes - parents Hx Family Cancer: Yes - esophagus-brother Father Family History: No Known Living Status: Hx Cardiac Disease: Yes Physical Exam - Physical Exam General Appearance: Alert, Comfortable, No apparent distress, Well Developed, Well Nourished Eye Exam: bilateral normal Ears, Nose, Throat: normal ENT inspection Neck: full range of motion, supple Respiratory: lungs clear, normal breath sounds, no respiratory distress, no accessory muscle use Cardiovascular/Chest: normal peripheral pulses, regular rate, rhythm, no edema, no gallop, no JVD, no murmur Peripheral Pulses: radial,right: 2+, radial,left: 2+ Gastrointestinal/Abdominal: normal bowel sounds, non tender, soft, no organom egaly, no pulsatile mass, other - no guarding, rebound, distention Rectal Exam: normal rectal tone, other - brown stool Back Exam: normal inspection Extremity: normal range of motion, non-tender, normal inspection, no pedal edema, no calf tenderness Neurologic: no motor/sensory deficits, alert, normal mood/affect, oriented x 3 Skin Exam: normal color, warm/dry Lymphatic: no adenopathy Progress - Progress Progress: 01/19/19 21:38 Discussed with pt about results and need for transfer, will transfer to medical home at [facility], pt and family agree with plan. Subsequently discussed with ED physician at [facility], accepts for transfer. CT with diverticulosis, concern for diverticular bleed while on anticoagulation. Maribel Blair MD Emergency Medicine Physician Billing Number [id number] - Results/Orders Results/Orders: 01/19/19 21:31 Abdomen/Pelvis w/Contrast [CT] Stat 01/19/19 21:32 Hold Metformin x 48Hrs [id number] Laboratory Results - last 24 hr 01/19/19 01/19/19 01/19/19 20:49 20:49 20:49 WBC 6.6 RBC 3.43 L Hgb 11.0 L Hct 32.9 L MCV 95.8 MCH 32.0 H MCHC 33.4 RDW 15.2 H Plt Count 207 MPV 8.0 Absolute Neuts (auto) 4.50 Absolute Lymphs (auto) 1.30 Absolute Monos (auto) 0.50 Absolute Eos (auto) 0.30 Absolute Basos (auto) 0.00 Neutrophils % 67.8 Lymphocytes % 20.0 Monocytes % 7.2 Eosinophils % 4.4 Basophils % 0.6 PT 12.1 H INR 1.21 H PTT (SP) 26.1 Sodium 141 Potassium 4.2 Chloride 110 Carbon Dioxide 22 Anion Gap 13.2 BUN 36 H Creatinine 1.26 BUN/Creatinine Ratio 28.6 H Random Glucose 129 H Serum Osmolality 291.3 Calcium 9.3 Total Bilirubin 0.4 AST 18 ALT 16 Alkaline Phosphatase 38 L Serum Total Protein 5.8 L Albumin 3.5 Globulin 2.3 Albumin/Globulin Ratio 1.5 Stool Occult Blood 01/19/19 20:50 WBC RBC Hgb Hct MCV MCH MCHC RDW Plt Count MPV Absolute Neuts (auto) Absolute Lymphs (auto) Absolute Monos (auto) Absolute Eos (auto) Absolute Basos (auto) Neutrophils % Lymphocytes % Monocytes % Eosinophils % Basophils % PT INR PTT (SP) Sodium Potassium Chloride Carbon Dioxide Anion Gap BUN Creatinine BUN/Creatinine Ratio Random Glucose Serum Osmolality Calcium Total Bilirubin AST ALT Alkaline Phosphatase Serum Total Protein Albumin Globulin Albumin/Globulin Ratio Stool Occult Blood Positive CT abd/pelvis: EXAM: CT Abdomen and Pelvis With Intravenous Contrast CLINICAL HISTORY: The patient is 88 years old and is Female; lower GI bleed TECHNIQUE: Axial computed tomography images of the abdomen and pelvis with intravenous contrast. Sagittal and coronal reformatted images were created and reviewed. This CT exam was performed using one or more of the following dose reduction techniques: automated exposure control, adjustment of the mA and/or kV according to patient size, and/or use of iterative reconstruction technique. COMPARISON: CT the abdomen and pelvis October 13, 2017. FINDINGS: LUNG BASES: Unremarkable. No mass. No consolidation. ABDOMEN: LIVER: Unremarkable. No mass. GALLBLADDER AND BILE DUCTS: Surgical clips are present in the right upper quadrant, consistent with previous cholecystectomy. PANCREAS: No ductal dilation. No mass. SPLEEN: Unremarkable. ADRENALS: Unremarkable. No mass. KIDNEYS AND URETERS: Deformity of the right kidney with areas of parenchymal scarring is noted. A right intrarenal calcification is present. The left kidney is normal. STOMACH AND BOWEL: The stomach is decompressed. The small bowel is relatively normal in caliber. Stool is present throughout colon. Scattered colonic diverticula are noted without surrounding inflammation. There is no bowel obstruction. PELVIS: APPENDIX: No findings to suggest acute appendicitis. BLADDER: Unremarkable. No mass. REPRODUCTIVE: The patient is status post hysterectomy. ABDOMEN and PELVIS: INTRAPERITONEAL SPACE: Unremarkable. No free air. No significant fluid collection. BONES/JOINTS: Minimal multilevel degenerative change of the spine is present. SOFT TISSUES: The soft tissues are normal. VASCULATURE: An infrarenal IVC filter is present. Atherosclerosis of the vasculature is present. The vessels are normal in caliber. No abdominal aortic aneurysm. LYMPH NODES: Unremarkable. No enlarged lymph nodes. IMPRESSION: 1. Colonic diverticulosis. 2. Right nephrolithiasis without obstruction. Electronically signed by: Enedelia Pacheco MD 01/19/2019 10:44 PM [employer]ION[employer] ENGINEER Vital Signs - 24 hr 01/19/19 01/19/19 20:18 21:30 Temperature 97.7 F Pulse Rate [ 66 62 pulse ox] Respiratory 18 16 Rate Blood Pressure 120/67 145/66 [Left Arm] O2 Sat by Pulse 98 97 Oximetry Departure - Departure Clinical Impression: Lower GI bleed Time of Disposition: 21:40 Disposition: Transfer to Hospital Condition: Fair Home Medications: Ambulatory Orders Potassium Chloride [Micro-K] 10 meq PO DAILY 07/10/15 Folic Acid-Vitamin B6-Vitamin [Folbee 2.5-25-1 mg] 1 tab PO DAILY 12/01/16 Gabapentin 300 mg PO BID 12/01/16 Magnesium [Magnesium 250 mg] 1 tab PO DAILY 11/12/17 Rivaroxaban [Xarelto] 15 mg PO DAILY 11/12/17 Albuterol Sulfate Nebs [Proventil Nebs] 2.5 mg NEB Q4H PRN #30 vial 04/03/18 Nystatin Powder 1 gm TOP BID PRN #1 bttl 09/03/18 Albuterol Sulfate Nebs [Proventil Nebs] 2.5 mg INH BEDTIME 09/11/18 D3 Vitamin 50 mg PO DAILY 09/11/18 Triamterene/Hydrochloroth 37.5-25 mg 37 mg PO DAILY 09/11/18 Methimazole 5 mg PO DAILY #30 tab 09/14/18 hydrOXYzine HCl [Atarax] 25 mg PO TID PRN #30 tab 09/24/18 Aspirin [Aspirin Childrens] 81 mg PO 01/19/19 Atorvastatin Calcium [Lipitor] 10 mg PO 01/19/19 Bioflavonoid Products [Vitamin C] 1 chw PO 01/19/19 Cholecalciferol [Vitamin D-3] 2,000 unit PO 01/19/19 Clopidogrel Bisulfate [Plavix] 75 mg PO QD 01/19/19 Fluticasone Furoate-Vilanterol [Breo Ellipta 100-25 Mcg/INH] 01/19/19 Metoprolol Succinate [Metoprolol Succinate ER] 25 mg PO 01/19/19 Montelukast [Singulair] 10 mg PO 01/19/19 Prednisone 5 mg PO DAILY 01/19/19
--- NOTE | 2019-01-19 22:46 | CT ---
EXAM: CT Abdomen and Pelvis With Intravenous Contrast CLINICAL HISTORY: The patient is 88 years old and is Female; lower GI bleed TECHNIQUE: Axial computed tomography images of the abdomen and pelvis with intravenous contrast. Sagittal and coronal reformatted images were created and reviewed. This CT exam was performed using one or more of the following dose reduction techniques: automated exposure control, adjustment of the mA and/or kV according to patient size, and/or use of iterative reconstruction technique. COMPARISON: CT the abdomen and pelvis October 13, 2017. FINDINGS: LUNG BASES: Unremarkable. No mass. No consolidation. ABDOMEN: LIVER: Unremarkable. No mass. GALLBLADDER AND BILE DUCTS: Surgical clips are present in the right upper quadrant, consistent with previous cholecystectomy. PANCREAS: No ductal dilation. No mass. SPLEEN: Unremarkable. ADRENALS: Unremarkable. No mass. KIDNEYS AND URETERS: Deformity of the right kidney with areas of parenchymal scarring is noted. A right intrarenal calcification is present. The left kidney is normal. STOMACH AND BOWEL: The stomach is decompressed. The small bowel is relatively normal in caliber. Stool is present throughout colon. Scattered colonic diverticula are noted without surrounding inflammation. There is no bowel obstruction. PELVIS: APPENDIX: No findings to suggest acute appendicitis. BLADDER: Unremarkable. No mass. REPRODUCTIVE: The patient is status post hysterectomy. ABDOMEN and PELVIS: INTRAPERITONEAL SPACE: Unremarkable. No free air. No significant fluid collection. BONES/JOINTS: Minimal multilevel degenerative change of the spine is present. SOFT TISSUES: The soft tissues are normal. VASCULATURE: An infrarenal IVC filter is present. Atherosclerosis of the vasculature is present. The vessels are normal in caliber. No abdominal aortic aneurysm. LYMPH NODES: Unremarkable. No enlarged lymph nodes. IMPRESSION: 1. Colonic diverticulosis. 2. Right nephrolithiasis without obstruction. Electronically signed by: Enedelia Pacheco MD 01/19/2019 10:44 PM [facility]OD SERVICE
[2019-01-19 23:38] VITALS: TEMP 98.2; O2SAT 95
[2019-01-19 23:51] VITALS: BP 168/76
== END 2019-01-20 00:05 | disposition short-term general hospital (02) ==
LOC: ER 20:13
DX: K62.5 Hemorrhage of anus and rectum (principal); K57.30 Diverticulosis of large intestine without perforation or abscess without bleeding; N20.0 Calculus of kidney; E07.9 Disorder of thyroid, unspecified; K21.9 Gastro-esophageal reflux disease without esophagitis; F03.90 Unspecified dementia, unspecified severity, without behavioral disturbance, psychotic disturbance, mood disturbance, and anxiety; Z90.49 Acquired absence of other specified parts of digestive tract; Z85.528 Personal history of other malignant neoplasm of kidney; Z86.718 Personal history of other venous thrombosis and embolism; Z79.899 Other long term (current) drug therapy; Z79.82 Long term (current) use of aspirin; Z79.02 Long term (current) use of antithrombotics/antiplatelets; Z79.01 Long term (current) use of anticoagulants; Z88.5 Allergy status to narcotic agent; Z88.0 Allergy status to penicillin; Z88.6 Allergy status to analgesic agent; Z95.5 Presence of coronary angioplasty implant and graft

== ENCOUNTER → 2019-02-28 | Outpatient (CLI) | payer MEDICARE, OTHER | LOC: BFHH 16:47 | PROVIDERS: ATTEND Family Medicine | DX: R30.9 Painful micturition, unspecified (principal) ==

== ENCOUNTER → 2019-03-14 | Outpatient (CLI) | payer MEDICARE, OTHER | LOC: GMAB 15:30 | PROVIDERS: ATTEND Family Medicine | DX: N39.0 Urinary tract infection, site not specified (principal) ==

== ENCOUNTER → 2019-04-05 | Outpatient (CLI) | payer MEDICARE, OTHER | LOC: LAB.O 10:28 | PROVIDERS: ATTEND Internal Medicine Cardiovascular Disease | DX: I25.10 Atherosclerotic heart disease of native coronary artery without angina pectoris (principal) ==

== ENCOUNTER → 2019-05-09 | Outpatient (CLI) | payer MEDICARE, OTHER | DX: R39.15 Urgency of urination (principal) ==

== ENCOUNTER → 2019-05-17 | Outpatient (CLI) | payer MEDICARE, OTHER | LOC: BFHH 13:30 | PROVIDERS: ATTEND Family Medicine | DX: R30.9 Painful micturition, unspecified (principal) ==

== ENCOUNTER → 2019-06-07 | Outpatient (CLI) | payer MEDICARE, OTHER | LOC: BFHH 13:41 | PROVIDERS: ATTEND Family Medicine | DX: N39.0 Urinary tract infection, site not specified (principal) ==

== ENCOUNTER → 2019-07-16 | Outpatient (CLI) | payer MEDICARE, OTHER ==
--- NOTE | 2019-07-16 16:12 | US ---
EXAM DESCRIPTION: Soft Tissue,Abdomen: ULTRASOUND. CLINICAL HISTORY: INTRA-ABDOMINAL AND PELVIC SWELLING, MASS AND LUMP RUQ abdominal wall. COMPARISON: CT scan abdomen and pelvis December 2018. TECHNIQUE: Transabdominal scanning: sam-scale mode. Doppler mode. FINDINGS: Scanning over the region of palpable mass in the right upper quadrant of the lateral abdomen. Subcutaneous tissues, fascial layer, and the abdominal wall muscles demonstrate a normal appearance. No dominant solid mass, no distinct cyst, no fluid collection. No abdominal wall defect or large calcifications. IMPRESSION: Normal ultrasound of the abdominal wall at the region of interest. Electronically signed by: Blayne Sanchez MD 07/16/2019 4:11 PM CDT
== END ==
LOC: US 11:00
PROVIDERS: ATTEND Family Medicine
DX: R19.00 Intra-abdominal and pelvic swelling, mass and lump, unspecified site (principal)

== ENCOUNTER → 2019-09-27 | Outpatient (CLI) | payer MEDICARE, OTHER | LOC: YCFC.O 12:23 | PROVIDERS: ATTEND Family Medicine | DX: N39.0 Urinary tract infection, site not specified (principal) ==

== ENCOUNTER 2019-10-21 22:01 | Emergency (ER) | payer MEDICARE, OTHER ==
[2019-10-21] MEDS: SODIUM CHLORIDE 0.9% 1000ML 1,000 ML IVS ONE (23:00)
--- NOTE | 2019-10-21 23:07 | CT ---
PROCEDURE: CT HEAD WITHOUT IV CONTRAST CLINICAL HISTORY: ams TECHNIQUE: Contiguous axial CT images obtained through the brain without IV contrast. Coronal and sagittal reformatted images were provided. This exam was performed according to our departmental dose-optimization program, which includes automated exposure control, adjustment of the mA and/or kV according to patient size and/or use of iterative reconstruction technique. COMPARISON: 12/31/2018 FINDINGS: Brain: Mild to moderate cerebral atrophy and bilateral periventricular and subcortical white matter low-attenuation most compatible with chronic microvascular angiopathy without significant interval change. No focal mass effect. Dunn-white matter differentiation is within normal limits. No hemorrhage. Ventricles: No ventriculomegaly or midline shift. Extra-axial spaces: No extra-axial collection or hemorrhage. Paranasal sinuses and mastoid air cells: Well-aerated Vessels: There is atherosclerotic disease of the internal carotid and vertebral arteries bilaterally. Bones: Unremarkable Soft tissues: Unremarkable IMPRESSION: 1. No acute hemorrhage, focal mass or large territory infarction. 2. Other findings as above. Electronically signed by: Trenton Roland MD 10/21/2019 11:05 PM CDT
--- NOTE | 2019-10-21 23:09 | RAD ---
EXAM DESCRIPTION: XR Chest, 1 View CLINICAL HISTORY: ams TECHNIQUE: Single frontal view of the chest is submitted. COMPARISON: 12/31/2018 FINDINGS: Heart: The cardiothoracic silhouette is within normal limits. Lungs: Linear bibasilar pleural parenchymal scar. No focal consolidation. Mediastinum: Thoracic aortic atherosclerosis. Pleura: No appreciable effusion. No pneumothorax. Bones: Multilevel spondylosis. No acute fracture. Upper abdomen: Unremarkable IMPRESSION: No acute disease. Electronically signed by: Trenton Roland MD 10/21/2019 11:07 PM CDT
--- NOTE | 2019-10-21 23:19 | ED.PDOC ---
History of Present Illness - General Chief Complaint: Neuro Symptoms/Deficits Stated Complaint: altered, lethargic Time Seen by Provider: 10/21/19 22:02 Source: patient, EMS notes reviewed, family Exam Limitations: clinical condition - History of Present Illness Initial Comments: The patient is an 89-year-old female presented emergency room with EMS secondary to becoming minimally responsive at home. The patient was sitting upright watching TV when she was noted to be really unresponsive to verbal command by family. The patient has had at least 2 previous episodes like this in the past. She does have some dementia and also has hypothyroidism and has had multiple infections in the past. The patient in the hour to 2 hours prior was given a dose of hydroxyzine for itching. She had received a couple of doses on the previous days as well. No new complaints otherwise prior. The patient does not appear to want to talk. She will look around when prompted a little bit. She is able to moan and groan. She is able to protect her airway. She does move all extremities though not to command at this point. She does not appear to be in any distress when she is at rest. No evidence of any abdominal pain. No chest pain to palpation. She does have some mild bruising on her shins which is consistent with the blood thinner that she takes. If you can get the patient to focus on what you are asking her she will answer simple yes and no questions. Timing/Duration: 1 hour Severity: moderate Allergies/Adverse Reactions: Allergies Codeine Allergy (Intermediate, Verified 09/11/18 21:43) Penicillins Allergy (Intermediate, Verified 09/11/18 21:43) Hives NSAIDs Allergy (Verified 01/19/19 20:41) Home Medications: Ambulatory Orders Potassium Chloride [Micro-K] 10 meq PO DAILY 07/10/15 Folic Acid-Vitamin B6-Vitamin [Folbee 2.5-25-1 mg] 1 tab PO DAILY 12/01/16 Gabapentin 300 mg PO BID 12/01/16 Magnesium [Magnesium 250 mg] 1 tab PO DAILY 11/12/17 Rivaroxaban [Xarelto] 15 mg PO DAILY 11/12/17 Albuterol Sulfate Nebs [Proventil Nebs] 2.5 mg NEB Q4H PRN #30 vial 04/03/18 Nystatin Powder 1 gm TOP BID PRN #1 bttl 09/03/18 Albuterol Sulfate Nebs [Proventil Nebs] 2.5 mg INH BEDTIME 09/11/18 D3 Vitamin 50 mg PO DAILY 09/11/18 Triamterene/Hydrochloroth 37.5-25 mg 37 mg PO DAILY 09/11/18 Methimazole 5 mg PO DAILY #30 tab 09/14/18 hydrOXYzine HCl [Atarax] 25 mg PO TID PRN #30 tab 09/24/18 Aspirin [Aspirin Childrens] 81 mg PO 01/19/19 Atorvastatin Calcium [Lipitor] 10 mg PO 01/19/19 Bioflavonoid Products [Vitamin C] 1 chw PO 01/19/19 Cholecalciferol [Vitamin D-3] 2,000 unit PO 01/19/19 Clopidogrel Bisulfate [Plavix] 75 mg PO QD 01/19/19 Fluticasone Furoate-Vilanterol [Breo Ellipta 100-25 Mcg/INH] 01/19/19 Metoprolol Succinate [Metoprolol Succinate ER] 25 mg PO 01/19/19 Montelukast [Singulair] 10 mg PO 01/19/19 Prednisone 5 mg PO DAILY 01/19/19 Review of Systems - Review of Systems Review of Systems: 10/21/19 23:19 Unable to obtain from the patient secondary to current clinical condition and dementia Unable to Obtain Due To: condition, dementia Past Medical History (General) - Patient Medical History Hx Seizures: No Hx Stroke: No Hx Dementia: Yes Hx Asthma: No Hx of COPD: No Hx Cardiac Disorders: Yes - Hx DVT Hx Congestive Heart Failure: No Hx Pacemaker: No Hx Hypertension: No Hx Thyroid Disease: Yes Hx Diabetes: No Hx Gastroesophageal Reflux: Yes Hx Renal Disease: No Hx Cancer: Yes - kidney Hx of HIV: No Hx Hepatitis C: No Hx MRSA: No Surgical History: noncontributory - Vaccination History Hx Tetanus, Diphtheria Vaccination: No Hx Influenza Vaccination: Yes Hx Pneumococcal Vaccination: Yes - Social History Hx Tobacco Use: No Hx Chewing Tobacco Use: No Hx Alcohol Use: No Hx Substance Use: No Hx Substance Use Treatment: No Hx Depression: No Hx Physical Abuse: No Hx Emotional Abuse: No Hx Suspected Abuse: No - Female History Patient : No Family Medical History - Family History Mother Family History: No Known Living Status: Hx Cardiac Disease: Yes - parents Hx Family Cancer: Yes - esophagus-brother Father Family History: No Known Living Status: Hx Cardiac Disease: Yes Physical Exam - Physical Exam General Appearance: Alert, Frail, Other - No distress. Looking around with her eyes. Eye Exam: bilateral normal Ears, Nose, Throat: normal pharynx - Mucous membranes are mildly dry. Top dentures in place., other - She does appear to orient to sound. Neck: full range of motion - She will turn her head both ways. Respiratory: lungs clear, normal breath sounds, no respiratory distress, no accessory muscle use Cardiovascular/Chest: normal peripheral pulses, other - Regular rate to borderli ne bradycardia Peripheral Pulses: radial,right: 2+, radial,left: 2+ Gastrointestinal/Abdominal: non tender, soft Rectal Exam: deferred Back Exam: no CVA tenderness Extremity: normal range of motion, pedal edema, other - Fairly normal passive range of motion. She does have some mild pain to palpation of her lower extremities which do have some edema Neurologic: alert, disoriented x 3 - The patient is currently nonverbal and appears dazed., other - Sensation appears intact and gross motor function appears intact. Skin Exam: normal color Comments: Vital Signs - 24 hr 10/21/19 10/21/19 10/21/19 22:02 22:44 23:00 Temperature 96.8 F L Pulse Rate [ 54 L 55 L 54 L monitor] Respiratory 18 16 20 Rate Blood Pressure 151/72 140/55 160/67 [Left Arm] O2 Sat by Pulse 97 97 97 Oximetry 10/21/19 23:15 Temperature Pulse Rate [ 54 L monitor] Respiratory Rate Blood Pressure 129/72 [Left Arm] O2 Sat by Pulse Oximetry Progress - Progress Progress: 10/21/19 23:22 The patient is an 89-year-old female brought in by EMS due to altered mental status. Differential does include stroke, adverse medical reaction to hydroxyzine and postictal state. I believe this is most likely an adverse reaction to the hydroxyzine however. The patient does have confounding factors of what appears to be worsening hypothyroidism along with mild to moderate dehydration. She is receiving IV fluids currently. We will continue to monitor her neurological status. She does seem to be coming back around somewhat. Continue to monitor. 10/22/19 00:28 The patient's mental status is continuing to improve. She is still however significantly under the influence of the hydroxyzine. IV fluids are about residential and. No new focal neurological deficits have been found. The patient will be allowed to go home and sleep off the medication once the IV fluids are and. Vital signs have remained stable. No other significant pathology has been found. I would recommend avoiding hydroxyzine in the near future. The patient's family can discuss with her client relationship manager further adjustments on her thyroid medications. ER warnings were given. [email or web address] - Results/Orders Results/Orders: EKG shows sinus bradycardia at 54 bpm with occasional PVCs. Normal axis. Normal R wave progression. Normal QT interval. Chest x-ray appears essentially clear. Head CT shows chronic changes. No evidence of any hemorrhage, new hydrocephalus or new stroke. Laboratory Results - last 24 hr 10/21/19 10/21/19 10/21/19 22:27 22:27 22:27 WBC 6.4 RBC 4.03 L Hgb 13.0 Hct 38.2 MCV 95.0 MCH 32.4 H MCHC 34.1 RDW 14.1 Plt Count 203 MPV 8.0 Absolute Neuts (auto) 3.40 Absolute Lymphs (auto) 2.10 Absolute Monos (auto) 0.70 Absolute Eos (auto) 0.30 Absolute Basos (auto) 0.10 Neutrophils % 52.3 Lymphocytes % 32.3 Monocytes % 10.3 H Eosinophils % 4.0 Basophils % 1.1 PT 10.1 INR 1.02 PTT (SP) 21.1 L Sodium 139 Potassium 4.0 Chloride 107 Carbon Dioxide 22 Anion Gap 14.0 BUN 30 H Creatinine 1.36 H BUN/Creatinine Ratio 22.1 H Random Glucose 101 Serum Osmolality 283.9 Calcium 9.4 Magnesium Total Bilirubin 0.4 AST 17 ALT 16 Alkaline Phosphatase 54 Creatine Kinase 92 CK-MB (CK-2) 1.9 CK-MB (CK-2) % Not Reportable Troponin I < 0.02 B-Natriuretic Peptide 121.0 H Serum Total Protein 6.2 L Albumin 3.6 Globulin 2.6 Albumin/Globulin Ratio 1.4 TSH 10/21/19 22:27 WBC RBC Hgb Hct MCV MCH MCHC RDW Plt Count MPV Absolute Neuts (auto) Absolute Lymphs (auto) Absolute Monos (auto) Absolute Eos (auto) Absolute Basos (auto) Neutrophils % Lymphocytes % Monocytes % Eosinophils % Basophils % PT INR PTT (SP) Sodium Potassium Chloride Carbon Dioxide Anion Gap BUN Creatinine BUN/Creatinine Ratio Random Glucose Serum Osmolality Calcium Magnesium 2.0 Total Bilirubin AST ALT Alkaline Phosphatase Creatine Kinase CK-MB (CK-2) CK-MB (CK-2) % Troponin I B-Natriuretic Peptide Serum Total Protein Albumin Globulin Albumin/Globulin Ratio TSH 13.11 H - EKG/XRAY/CT CT Ordered: Yes Departure - Departure Clinical Impression: Dehydration Medication adverse effect Qualifiers: Encounter type: initial encounter Qualified Code(s): T50.905A - Adverse effect of unspecified drugs, medicaments and biological substances, initial encounter Hypothyroidism Qualifiers: Hypothyroidism type: unspecified Qualified Code(s): E03.9 - Hypothyroidism, unspecified Disposition: Discharge to Home or Self Care Condition: Fair Departure Forms: ED Discharge - Pt. Copy, Patient Portal Self Enrollment Instructions: Hypothyroidism (Underactive Thyroid) (DC) Diet: regular diet Activity: increase activity as tolerated Referrals: Dwight Meredith MD [Primary Care Provider] - 1-2 Weeks Home Medications: Ambulatory Orders Potassium Chloride [Micro-K] 10 meq PO DAILY 07/10/15 Folic Acid-Vitamin B6-Vitamin [Folbee 2.5-25-1 mg] 1 tab PO DAILY 12/01/16 Gabapentin 300 mg PO BID 12/01/16 Magnesium [Magnesium 250 mg] 1 tab PO DAILY 11/12/17 Rivaroxaban [Xarelto] 15 mg PO DAILY 11/12/17 Albuterol Sulfate Nebs [Proventil Nebs] 2.5 mg NEB Q4H PRN #30 vial 04/03/18 Nystatin Powder 1 gm TOP BID PRN #1 bttl 09/03/18 Albuterol Sulfate Nebs [Proventil Nebs] 2.5 mg INH BEDTIME 09/11/18 D3 Vitamin 50 mg PO DAILY 09/11/18 Triamterene/Hydrochloroth 37.5-25 mg 37 mg PO DAILY 09/11/18 Methimazole 5 mg PO DAILY #30 tab 09/14/18 hydrOXYzine HCl [Atarax] 25 mg PO TID PRN #30 tab 09/24/18 Aspirin [Aspirin Childrens] 81 mg PO 01/19/19 Atorvastatin Calcium [Lipitor] 10 mg PO 01/19/19 Bioflavonoid Products [Vitamin C] 1 chw PO 01/19/19 Cholecalciferol [Vitamin D-3] 2,000 unit PO 01/19/19 Clopidogrel Bisulfate [Plavix] 75 mg PO QD 01/19/19 Fluticasone Furoate-Vilanterol [Breo Ellipta 100-25 Mcg/INH] 01/19/19 Metoprolol Succinate [Metoprolol Succinate ER] 25 mg PO 01/19/19 Montelukast [Singulair] 10 mg PO 01/19/19 Prednisone 5 mg PO DAILY 01/19/19 Additional Instructions: The patient is an 89-year-old female presented emergency room secondary to an altered mental state. CT scan of the head as well as laboratory work were reassuring here. The patient did have some mild to moderate dehydration likely contributing and did receive a liter of IV fluids. She does also have some mild hypothyroidism with a TSH of approximately 13 today. Family can discuss with her client relationship manager further adjustments to her thyroid dosage in the coming week. This will likely help her mental state as well. The altered mental status most likely attributed to adverse effect of the hydroxyzine on this elderly patient. This medication does need to be avoided for at least the next week, and if restarted restarted at half the dose. I would like to have her seen again by her primary care doctor before the end of the week. ER warnings are given for any acute worsening's.
[2019-10-22 00:01] VITALS: TEMP 97
[2019-10-22 01:02] VITALS: O2SAT 97
[2019-10-22 01:28] VITALS: BP 107/84
== END 2019-10-22 01:41 | disposition home or self-care (01) ==
LOC: ER 22:01
DX: E86.0 Dehydration (principal); R53.83 Other fatigue; T43.595A Adverse effect of other antipsychotics and neuroleptics, initial encounter; E03.9 Hypothyroidism, unspecified; R41.82 Altered mental status, unspecified; F03.90 Unspecified dementia, unspecified severity, without behavioral disturbance, psychotic disturbance, mood disturbance, and anxiety; K21.9 Gastro-esophageal reflux disease without esophagitis; Z85.528 Personal history of other malignant neoplasm of kidney; Z86.718 Personal history of other venous thrombosis and embolism; Z79.899 Other long term (current) drug therapy; Z79.01 Long term (current) use of anticoagulants; Z79.02 Long term (current) use of antithrombotics/antiplatelets; Z88.5 Allergy status to narcotic agent; Z88.0 Allergy status to penicillin; Z88.6 Allergy status to analgesic agent
CPT/HCPCS: 36415; 70450; 71045; 80053; 82550; 82553; 83735; 83880; 84443; 84484; 85025; 85610; 85730; 93005; J7030

== ENCOUNTER 2019-10-22 15:04 | Emergency (ER) | payer MEDICARE, OTHER ==
--- NOTE | 2019-10-22 15:13 | ED.PDOC ---
History of Present Illness - General Chief Complaint: General Time Seen by Provider: 10/22/19 15:11 Source: patient, family - History of Present Illness Initial Comments: 89-year-old female who is brought in by daughter from home sent from PCP Dr. Meredith the ED for chief complaint of lower extremity swelling and bruising. Patient was seen in the ED yesterday for symptoms of altered mental status. Full work-up at that time was pretty unremarkable. She was given a liter of IV fluids and was discharged home in good condition. Her daughter reports her mental status seems improved from yesterday but today she noted that her legs were more swollen than usual with numerous scattered bruising which appeared to be new. Swelling is described as moderate severity, equal on both sides, nothing taken for relief, unsure of exacerbating factors, seems to have worsened over the past 1 to 2 days. Patient does take aspirin and Plavix daily. 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 Patient denies any acute symptoms besides the swelling and bruising in her legs. She denies any pain in the legs, redness/warmth, fevers/chills, chest pain, shortness of breath, abdominal pain, urinary symptoms. Allergies/Adverse Reactions: Allergies Codeine Allergy (Intermediate, Verified 09/11/18 21:43) Penicillins Allergy (Intermediate, Verified 09/11/18 21:43) Hives NSAIDs Allergy (Verified 01/19/19 20:41) Home Medications: Ambulatory Orders Potassium Chloride [Micro-K] 10 meq PO DAILY 07/10/15 Folic Acid-Vitamin B6-Vitamin [Folbee 2.5-25-1 mg] 1 tab PO DAILY 12/01/16 Gabapentin 300 mg PO BID 12/01/16 Magnesium [Magnesium 250 mg] 1 tab PO DAILY 11/12/17 Rivaroxaban [Xarelto] 15 mg PO DAILY 11/12/17 Albuterol Sulfate Nebs [Proventil Nebs] 2.5 mg NEB Q4H PRN #30 vial 04/03/18 Nystatin Powder 1 gm TOP BID PRN #1 bttl 09/03/18 Albuterol Sulfate Nebs [Proventil Nebs] 2.5 mg INH BEDTIME 09/11/18 D3 Vitamin 50 mg PO DAILY 09/11/18 Triamterene/Hydrochloroth 37.5-25 mg 37 mg PO DAILY 09/11/18 Methimazole 5 mg PO DAILY #30 tab 09/14/18 hydrOXYzine HCl [Atarax] 25 mg PO TID PRN #30 tab 09/24/18 Aspirin [Aspirin Childrens] 81 mg PO 01/19/19 Atorvastatin Calcium [Lipitor] 10 mg PO 01/19/19 Bioflavonoid Products [Vitamin C] 1 chw PO 01/19/19 Cholecalciferol [Vitamin D-3] 2,000 unit PO 01/19/19 Clopidogrel Bisulfate [Plavix] 75 mg PO QD 01/19/19 Fluticasone Furoate-Vilanterol [Breo Ellipta 100-25 Mcg/INH] 01/19/19 Metoprolol Succinate [Metoprolol Succinate ER] 25 mg PO 01/19/19 Montelukast [Singulair] 10 mg PO 01/19/19 Prednisone 5 mg PO DAILY 01/19/19 Review of Systems - Review of Systems Review of Systems: 10/22/19 17:02 as per HPI All other Systems: Reviewed and Negative Past Medical History (General) - Patient Medical History Hx Seizures: No Hx Stroke: No Hx Dementia: Yes Hx Asthma: No Hx of COPD: No Hx Cardiac Disorders: Yes - Hx DVT Hx Congestive Heart Failure: No Hx Pacemaker: No Hx Hypertension: No Hx Thyroid Disease: Yes Hx Diabetes: No Hx Gastroesophageal Reflux: Yes Hx Renal Disease: No Hx Cancer: Yes - kidney Hx of HIV: No Hx Hepatitis C: No Hx MRSA: No - Vaccination History Hx Tetanus, Diphtheria Vaccination: No Hx Influenza Vaccination: Yes Hx Pneumococcal Vaccination: Yes - Social History Hx Tobacco Use: No Hx Chewing Tobacco Use: No Hx Alcohol Use: No Hx Substance Use: No Hx Substance Use Treatment: No Hx Depression: No Hx Physical Abuse: No Hx Emotional Abuse: No Hx Suspected Abuse: No - Female History Patient : No Family Medical History - Family History Mother Family History: No Known Living Status: Hx Cardiac Disease: Yes - parents Hx Family Cancer: Yes - esophagus-brother Father Family History: No Known Living Status: Hx Cardiac Disease: Yes Physical Exam - Physical Exam General Appearance: Alert, Comfortable, No apparent distress Eye Exam: bilateral normal Ears, Nose, Throat: hearing grossly normal, normal ENT inspection, normal pharynx Neck: non-tender, full range of motion, supple, normal inspection Respiratory: lungs clear, normal breath sounds, no respiratory distress, no accessory muscle use Cardiovascular/Chest: normal peripheral pulses, regular rate, rhythm, no gallop, no JVD, no murmur Peripheral Pulses: radial,right: 2+, radial,left: 2+ Gastrointestinal/Abdominal: non tender, soft, no organomegaly Back Exam: normal inspection, no CVA tenderness, no vertebral tenderness Extremity: normal range of motion, normal inspection, normal capillary refill, swelling - Lungs bilateral lower extremity nonpitting edema noted from ankles to lower thighs, appears equal bilaterally. No noted redness/warmth. Homans sign negative bilaterally. Strength and sensation appears intact throughout. DP and PT pulses appear 2+ and equal bilaterally Neurologic: crib pad maker II-XII nml as tested, no motor/sensory deficits, alert, normal mood/affect, other - oriented to person and place but not time, date, situation. Appropriately answers questions and follows commands Skin Exam: warm/dry, other - Scattered ecchymosis and petechiae noted to bilateral lower legs Progress - Progress Progress: 10/22/19 16:05 Lower extremity swelling and bruising -Suspect most likely due to venous insufficiency, dependent edema, may be developing some skin changes of venous stasis dermatitis. Possibly this was worsened by IV fluid bolus given last night in the ED. Consider also fragile skin and elderly female on aspirin and Plavix. Consider also DVT, CHF, nephropathy, other -Obtain blood work, coagulation panel, d-dimer, cardiac work-up, obtain Doppler venous ultrasound imaging of bilateral lower extremities 10/22/19 18:40 -Lab work revealed elevated d-dimer level greater than 1000 and BNP level of 183. Remainder of lab work largely unremarkable. X-ray of the chest is without acute processes. Doppler venous ultrasound of bilateral lower extremities was obtained in the ED which revealed no evidence of DVT. I discussed the results with Dr. Meredith as well as with the patient and her daughter at bedside. I suspect that the swelling in her lower extremities is likely due to dependent edema. Possibly this is worsened from her IV fluids last night. There does not appear to be any emergent conditions such as DVT. Further her platelet count is normal and her coagulation labs are also within normal limits. After some discussion with Dr. Meredith, we will have the patient increase her Lasix dosage for the next 3 days from 20 mg once daily to 20 mg twice daily. Along with this we will increase her potassium supplement to 20 mEq twice daily. I advised the daughter to weigh the patient daily and record this to help her keep track of her fluid status. Discharged home in good condition with daughter, return warnings discussed. Advised close follow-up with Dr. Meredith. Abiodun Judge MD Billing #[id number] 10/22/19 15:12 IV Care:Saline Lock per Protoc QSHIFT Telemetry .ONCE Sodium Chloride 0.9% (Flush) [Saline Flush Syringe] 10 ml IV PRN PRN UA [URINALYSIS] Stat 10/22/19 15:15 EKG STAT 10/23/19 09:00 Pulse Ox Daily Laboratory Results - last 24 hr 10/22/19 10/22/19 10/22/19 15:50 15:50 15:50 WBC RBC Hgb Hct MCV MCH MCHC RDW Plt Count MPV Absolute Neuts (auto) Absolute Lymphs (auto) Absolute Monos (auto) Absolute Eos (auto) Absolute Basos (auto) Neutrophils % Lymphocytes % Monocytes % Eosinophils % Basophils % PT INR PTT (SP) D-Dimer, Quantitative Sodium 140 Potassium 4.5 Chloride 109 Carbon Dioxide 25 Anion Gap 10.5 L BUN 25 H Creatinine 1.12 BUN/Creatinine Ratio 22.3 H Random Glucose 76 Serum Osmolality 282.6 Calcium 9.1 Total Bilirubin 0.6 AST 20 ALT 15 Alkaline Phosphatase 47 Ammonia 15 B-Natriuretic Peptide 183.0 H Serum Total Protein 5.7 L Albumin 3.3 Globulin 2.4 Albumin/Globulin Ratio 1.4 TSH 7.46 H D 10/22/19 10/22/19 16:05 16:09 WBC 5.4 RBC 4.06 L Hgb 13.0 Hct 38.7 MCV 95.3 MCH 32.0 H MCHC 33.6 RDW 14.3 Plt Count 194 MPV 8.0 Absolute Neuts (auto) 3.00 Absolute Lymphs (auto) 1.60 Absolute Monos (auto) 0.50 Absolute Eos (auto) 0.30 Absolute Basos (auto) 0.00 Neutrophils % 55.9 Lymphocytes % 29.0 Monocytes % 9.7 H Eosinophils % 5.0 Basophils % 0.4 PT 10.0 INR 1.01 PTT (SP) 22.3 D-Dimer, Quantitative 1070.0 H* Sodium Potassium Chloride Carbon Dioxide Anion Gap BUN Creatinine BUN/Creatinine Ratio Random Glucose Serum Osmolality Calcium Total Bilirubin AST ALT Alkaline Phosphatase Ammonia B-Natriuretic Peptide Serum Total Protein Albumin Globulin Albumin/Globulin Ratio TSH - EKG/XRAY/CT EKG: Sinus - Normal sinus rhythm, heart rate 55, no ST elevations noted, Q waves noted in anteroseptal leads likely indicative of prior AL, axis normal, intervals normal, appears largely unchanged from 10/21/2019 EKG. XRAY: chest - No acute processes per my read Departure - Departure Clinical Impression: Dependent edema Time of Disposition: 18:36 Disposition: Discharge to Home or Self Care Condition: Good Departure Forms: ED Discharge - Pt. Copy, Patient Portal Self Enrollment Instructions: Dependent Edema (DC) Diet: low salt diet Activity: increase activity as tolerated Referrals: Dwight Meredith MD [Primary Care Provider] - 1-5 Days Home Medications: Ambulatory Orders Potassium Chloride [Micro-K] 10 meq PO DAILY 07/10/15 Folic Acid-Vitamin B6-Vitamin [Folbee 2.5-25-1 mg] 1 tab PO DAILY 12/01/16 Gabapentin 300 mg PO BID 12/01/16 Magnesium [Magnesium 250 mg] 1 tab PO DAILY 11/12/17 Rivaroxaban [Xarelto] 15 mg PO DAILY 11/12/17 Albuterol Sulfate Nebs [Proventil Nebs] 2.5 mg NEB Q4H PRN #30 vial 04/03/18 Nystatin Powder 1 gm TOP BID PRN #1 bttl 09/03/18 Albuterol Sulfate Nebs [Proventil Nebs] 2.5 mg INH BEDTIME 09/11/18 D3 Vitamin 50 mg PO DAILY 09/11/18 Triamterene/Hydrochloroth 37.5-25 mg 37 mg PO DAILY 09/11/18 Methimazole 5 mg PO DAILY #30 tab 09/14/18 hydrOXYzine HCl [Atarax] 25 mg PO TID PRN #30 tab 09/24/18 Aspirin [Aspirin Childrens] 81 mg PO 01/19/19 Atorvastatin Calcium [Lipitor] 10 mg PO 01/19/19 Bioflavonoid Products [Vitamin C] 1 chw PO 01/19/19 Cholecalciferol [Vitamin D-3] 2,000 unit PO 01/19/19 Clopidogrel Bisulfate [Plavix] 75 mg PO QD 01/19/19 Fluticasone Furoate-Vilanterol [Breo Ellipta 100-25 Mcg/INH] 01/19/19 Metoprolol Succinate [Metoprolol Succinate ER] 25 mg PO 01/19/19 Montelukast [Singulair] 10 mg PO 01/19/19 Prednisone 5 mg PO DAILY 01/19/19 Additional Instructions: You may resume the patient's usual night medications tonight as scheduled. As we discussed, I advised that you increase her Lasix dosage for the next 3 days (Monday through Monday) to be 20 mg given in the morning and another 20 mg given around lunchtime. With each Lasix dosage, you may give 2 tablets of the potassium 10 mEq tablets at a time (for a total of 4 tablets each day) while the patient is taking increased Lasix. Weigh the patient every day and record to help document her fluid status. Return to the ED if the patient develops any concerning symptoms such as chest pain, shortness of breath, redness/warmth/pain in her legs, fevers, chills, etc. Follow-up with Dr. Meredith is recommended in the next 3 to 5 days for repeat evaluation or sooner as needed. May call his clinic to do a telephone checkup visit.
[2019-10-22] MEDS: SODIUM CHLORIDE 0.9% (FLUSH) 10 ML SYG IV PRN (16:07)
--- NOTE | 2019-10-22 16:10 | RAD ---
EXAM DESCRIPTION: Chest,1 View x-ray CLINICAL HISTORY: 89 years Female, altered mental status, LE edema COMPARISON: 10/21/2019 IMPRESSION: The heart remains stable in size. Atherosclerosis in the thoracic aorta. The lungs remain hyperexpanded with linear atelectasis or scarring in both lower lung zones. No confluent airspace consolidation, pleural effusion, or pneumothorax. No acute osseous abnormality. Electronically signed by: Kevin Solis MD 10/22/2019 4:08 PM CDT
--- NOTE | 2019-10-22 18:07 | US ---
EXAM: Venous,Lower Extremity RT CLINICAL INDICATION: Right leg swelling COMPARISON: There is no previous study for comparison. TECHNIQUE: Sonographic grayscale and color Doppler images of the right lower extremity deep venous system were obtained including Doppler waveforms. FINDINGS: There is normal flow, compressibility, and augmentation throughout the right common femoral, femoral, and popliteal veins. There are no echogenic filling defects to suggest thrombi. IMPRESSION: No evidence of right lower extremity DVT. Electronically signed by: Aris Jarvis MD 10/22/2019 6:06 PM CDT
--- NOTE | 2019-10-22 18:08 | US ---
EXAM: Venous,Lower Extremity LT CLINICAL INDICATION: Left leg swelling COMPARISON: There is no previous study for comparison. TECHNIQUE: Sonographic grayscale and color Doppler images of the left lower extremity deep venous system were obtained including Doppler waveforms. FINDINGS: There is normal flow, compressibility, and augmentation throughout the left common femoral, femoral, and popliteal veins. There are no echogenic filling defects to suggest thrombi. IMPRESSION: No evidence of left lower extremity DVT. Electronically signed by: Aris Jarvis MD 10/22/2019 6:06 PM CDT
[2019-10-22 18:34] VITALS: BP 147/95
[2019-10-22 19:02] VITALS: TEMP 98.2; O2SAT 97
== END 2019-10-22 18:42 | disposition home or self-care (01) ==
LOC: ER 15:04
DX: R60.0 Localized edema (principal); S80.11XA Contusion of right lower leg, initial encounter; S80.12XA Contusion of left lower leg, initial encounter; F03.90 Unspecified dementia, unspecified severity, without behavioral disturbance, psychotic disturbance, mood disturbance, and anxiety; E07.9 Disorder of thyroid, unspecified; K21.9 Gastro-esophageal reflux disease without esophagitis; Z85.528 Personal history of other malignant neoplasm of kidney; Z86.718 Personal history of other venous thrombosis and embolism; Z79.02 Long term (current) use of antithrombotics/antiplatelets; Z79.82 Long term (current) use of aspirin; Z79.899 Other long term (current) drug therapy; Z88.5 Allergy status to narcotic agent; Z88.0 Allergy status to penicillin; Z88.6 Allergy status to analgesic agent; X58.XXXA Exposure to other specified factors, initial encounter; Y92.9 Unspecified place or not applicable

== ENCOUNTER → 2019-12-10 | Outpatient (CLI) | payer MEDICARE, OTHER | LOC: YCFC.O 16:10 | PROVIDERS: ATTEND Family Medicine | DX: E05.90 Thyrotoxicosis, unspecified without thyrotoxic crisis or storm (principal) ==

== ENCOUNTER → 2019-12-13 | Outpatient (CLI) | payer MEDICARE, OTHER ==
--- NOTE | 2019-12-14 13:10 | RAD ---
EXAM DESCRIPTION: Shoulder,Left 2 or More Views CLINICAL HISTORY: PAIN IN LEFT SHOULDER COMPARISON: None Available. 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 No significant severe narrowing of the subacromial space to suggest advanced rotator cuff degeneration. No fracture or dislocation. Normal alignment of the AC joint with only mild inferior spurring. Intact chest wall and clavicle and normal-appearing upper lung field on the left. IMPRESSION: 1. Advanced degenerative changes left shoulder. Electronically signed by: West Rose MD 12/14/2019 1:08 PM CDT
== END ==
LOC: RAD 10:03
PROVIDERS: ATTEND Orthopaedic Surgery
DX: M19.012 Primary osteoarthritis, left shoulder (principal)

== ENCOUNTER 2019-12-23 19:50 | Emergency (ER) | payer MEDICARE, OTHER ==
[2019-12-23] MEDS ORDERED: SODIUM CHLORIDE 0.9% (FLUSH) 10 ML SYG IV PRN (20:12)
[2019-12-23] MEDS ORDERED: SODIUM CHLORIDE 0.9% 1000ML 1,000 ML IVS ONE (20:12)
[2019-12-23] MEDS ORDERED: cefTRIAXone SODIUM 1 GM in SODIUM CHL 0.9% 50ML MIN-BAG+ 50 ML IVPB ONE (21:24)
--- NOTE | 2019-12-23 21:49 | ED.PDOC ---
History of Present Illness - General Chief Complaint: Neuro Symptoms/Deficits Stated Complaint: altered mental status Time Seen by Provider: 12/23/19 20:12 Source: patient, RN notes reviewed, Vital Signs reviewed, family - son Exam Limitations: no limitations - History of Present Illness Initial Comments: Patient is an 89-year-old white female who presents from home with complaints of altered mental status for the last 2 to 3 days. Her son states that she is more confused, unwilling to take her medications and is not eating or drinking. Nothing seems to make this better or worse. He denies any fever or chills. Patient denies any headache, blurry vision, chest pain, shortness of breath, nausea, vomiting or diarrhea. She does complain of some lower abdominal pain. The pain is cramping in nature. Worse with palpation. Timing/Duration: getting worse, other - 2-3 days Severity: moderate Improving Factors: nothing Worsening Factors: nothing Associated Symptoms: loss of appetite, malaise, weakness Allergies/Adverse Reactions: Allergies Codeine Allergy (Intermediate, Verified 12/23/19 20:40) Penicillins Allergy (Intermediate, Verified 12/23/19 20:40) Hives NSAIDs Allergy (Verified 12/23/19 20:40) Home Medications: Ambulatory Orders Potassium Chloride [Micro-K] 10 meq PO DAILY 07/10/15 Folic Acid-Vitamin B6-Vitamin [Folbee 2.5-25-1 mg] 1 tab PO DAILY 12/01/16 Gabapentin 300 mg PO BID 12/01/16 Magnesium [Magnesium 250 mg] 1 tab PO DAILY 11/12/17 Rivaroxaban [Xarelto] 15 mg PO DAILY 11/12/17 Albuterol Sulfate Nebs [Proventil Nebs] 2.5 mg NEB Q4H PRN #30 vial 04/03/18 Nystatin Powder 1 gm TOP BID PRN #1 bttl 09/03/18 Albuterol Sulfate Nebs [Proventil Nebs] 2.5 mg INH BEDTIME 09/11/18 D3 Vitamin 50 mg PO DAILY 09/11/18 Triamterene/Hydrochloroth 37.5-25 mg 37 mg PO DAILY 09/11/18 Methimazole 5 mg PO DAILY #30 tab 09/14/18 hydrOXYzine HCl [Atarax] 25 mg PO TID PRN #30 tab 09/24/18 Aspirin [Aspirin Childrens] 81 mg PO 01/19/19 Atorvastatin Calcium [Lipitor] 10 mg PO 01/19/19 Bioflavonoid Products [Vitamin C] 1 chw PO 01/19/19 Cholecalciferol [Vitamin D-3] 2,000 unit PO 01/19/19 Clopidogrel Bisulfate [Plavix] 75 mg PO QD 01/19/19 Fluticasone Furoate-Vilanterol [Breo Ellipta 100-25 Mcg/INH] 01/19/19 Metoprolol Succinate [Metoprolol Succinate ER] 25 mg PO 01/19/19 Montelukast [Singulair] 10 mg PO 01/19/19 Prednisone 5 mg PO DAILY 01/19/19 Isosorbide Dinitrate 5 mg PO BID #30 tab 11/21/19 Cefdinir 300 mg PO BID #10 capsule 12/23/19 Review of Systems - Review of Systems Constitutional: States: see HPI, chills, malaise, weakness. Denies: fever EENTM: States: no symptoms reported. Denies: eye pain, blurred vision, double vision Respiratory: States: no symptoms reported. Denies: cough, short of breath Cardiology: States: no symptoms reported. Denies: chest pain, palpitations, syncope Gastrointestinal/Abdominal: States: see HPI, abdominal pain. Denies: nausea, vomiting Genitourinary: States: see HPI, frequency. Denies: dysuria Musculoskeletal: States: no symptoms reported. Denies: back pain, neck pain Skin: States: no symptoms reported. Denies: change in color, rash Neurological: States: see HPI, weakness. Denies: tingling, tremors Endocrine: States: no symptoms reported. Denies: increased hunger, increased thirst, increased urine Hematologic/Lymphatic: States: no symptoms reported. Denies: blood clots, easy bleeding All other Systems: No Change from Baseline Past Medical History (General) - Patient Medical History Hx Seizures: No Hx Stroke: No Hx Dementia: Yes Hx Asthma: No Hx of COPD: No Hx Cardiac Disorders: Yes - Hx DVT Hx Congestive Heart Failure: No Hx Pacemaker: No Hx Hypertension: No Hx Thyroid Disease: Yes Hx Diabetes: No Hx Gastroesophageal Reflux: Yes Hx Renal Disease: No Hx Cancer: Yes - kidney Hx of HIV: No Hx Hepatitis C: No Hx MRSA: No Surgical History: cancer surgery, other - Vaccination History Hx Tetanus, Diphtheria Vaccination: No Hx Influenza Vaccination: Yes Hx Pneumococcal Vaccination: Yes - Social History Hx Tobacco Use: No Hx Chewing Tobacco Use: No Hx Alcohol Use: No Hx Substance Use: No Hx Substance Use Treatment: No Hx Depression: No Hx Physical Abuse: No Hx Emotional Abuse: No Hx Suspected Abuse: No - Female History Patient : No Family Medical History - Family History Mother Family History: No Known Living Status: Hx Cardiac Disease: Yes - parents Hx Family Cancer: Yes - esophagus-brother Father Family History: No Known Living Status: Hx Cardiac Disease: Yes Physical Exam - Physical Exam General Appearance: Alert, Anxious, Frail, Well Developed, Well Groomed, Well Nourished Eye Exam: bilateral normal Ears, Nose, Throat: hearing grossly normal, normal pharynx - except for dry MM Neck: non-tender, full range of motion, supple Respiratory: chest non-tender, lungs clear, normal breath sounds, no respiratory distress, no accessory muscle use Cardiovascular/Chest: normal peripheral pulses, regular rate, rhythm, no edema, no gallop, no murmur Peripheral Pulses: radial,right: 2+, radial,left: 2+ Gastrointestinal/Abdominal: normal bowel sounds, soft, no organomegaly, no pulsatile mass, tenderness - suprapubic Back Exam: normal inspection, no CVA tenderness, no vertebral tenderness Extremity: normal range of motion, non-tender, normal inspection Neurologic: automat watcher II-XII nml as tested, no motor/sensory deficits, alert, normal mood/affect, other - oriented only to self. Skin Exam: normal color, warm/dry Lymphatic: no adenopathy Progress - Progress Progress: Differential diagnosis: UTI, acute [place], anemia, sepsis among others. 12/23/19 21:57 Labs consistent with a UTI. Urinalysis shows heavy bacterial infection. Patient with a history of some rash with penicillin, but son thinks that she has been fine with Rocephin in the past. Plan on a as of IV Rocephin here and discharged home on cefdinir. Of discussed this plan of care with the patient and her son and they voiced understanding and agreement. Luis Sykes M.D. #[id number] - Results/Orders Results/Orders: 12/23/19 20:12 IV Care:Saline Lock per Protoc QSHIFT Sodium Chloride 0.9% (Flush) [Saline Flush Syringe] 10 ml IV PRN PRN EKG Assessment ONCE 12/23/19 20:15 EKG STAT 12/23/19 20:45 URINE CULTURE W/COLONY COUNT Stat Laboratory Results - last 24 hr 12/23/19 12/23/19 12/23/19 20:45 21:00 21:15 WBC 8.7 RBC 4.55 Hgb 14.4 Hct 43.5 MCV 95.5 MCH 31.7 H MCHC 33.2 RDW 13.8 Plt Count 225 MPV 8.2 Absolute Neuts (auto) 5.60 Absolute Lymphs (auto) 2.00 Absolute Monos (auto) 0.70 Absolute Eos (auto) 0.40 Absolute Basos (auto) 0.10 Neutrophils % 63.9 Lymphocytes % 22.6 Monocytes % 8.3 Eosinophils % 4.4 Basophils % 0.8 Sodium 141 Potassium 3.8 Chloride 107 Carbon Dioxide 23 Anion Gap 14.8 BUN 25 H Creatinine 1.18 BUN/Creatinine Ratio 21.2 H Random Glucose 84 Serum Osmolality 284.9 Calcium 9.4 Total Bilirubin 0.7 Direct Bilirubin 0.1 Indirect Bilirubin 0.6 AST 18 ALT 14 Alkaline Phosphatase 72 Troponin I Serum Total Protein 6.8 Albumin 3.8 Lipase 44 Urine Color Yellow Urine Appearance Turbid Urine pH 7.0 Ur Specific [place] 1.020 Urine Protein Trace Urine Glucose (UA) Negative Urine Ketones Negative Urine Blood Moderate H Urine Nitrite Positive H Urine Bilirubin Negative Urine Urobilinogen 0.2 Ur Leukocyte Esterase Large H Urine RBC Obscured by wbc's H Urine WBC Tntc H Ur Epithelial Cells 0 Urine Bacteria 3+ H 12/23/19 21:15 WBC RBC Hgb Hct MCV MCH MCHC RDW Plt Count MPV Absolute Neuts (auto) Absolute Lymphs (auto) Absolute Monos (auto) Absolute Eos (auto) Absolute Basos (auto) Neutrophils % Lymphocytes % Monocytes % Eosinophils % Basophils % Sodium Potassium Chloride Carbon Dioxide Anion Gap BUN Creatinine BUN/Creatinine Ratio Random Glucose Serum Osmolality Calcium Total Bilirubin Direct Bilirubin Indirect Bilirubin AST ALT Alkaline Phosphatase Troponin I < 0.02 Serum Total Protein Albumin Lipase Urine Color Urine Appearance Urine pH Ur Specific [place] Urine Protein Urine Glucose (UA) Urine Ketones Urine Blood Urine Nitrite Urine Bilirubin Urine Urobilinogen Ur Leukocyte Esterase Urine RBC Urine WBC Ur Epithelial Cells Urine Bacteria EKG performed 23 December 2019 at 2134 hrs.: Normal sinus rhythm at 62 bpm, low voltage QRS, cannot rule out anterior infarct, abnormal EKG. No acute ischemia. No comparison EKG available at this time. Departure - Departure Clinical Impression: Altered mental status Qualifiers: Altered mental status type: disorientation Qualified Code(s): R41.0 - Disorientation, unspecified Urinary tract infection Qualifiers: Urinary tract infection type: acute cystitis Hematuria presence: without hematuria Qualified Code(s): N30.00 - Acute cystitis without hematuria Time of Disposition: 22:01 Disposition: Discharge to Home or Self Care Condition: Fair Departure Forms: ED Discharge - Pt. Copy, Patient Portal Self Enrollment Instructions: Urinary Tract Infection, Adult (DC), Delirium (Confusion) (DC) Diet: resume usual diet Activity: increase activity as tolerated Referrals: Dwight Meredith MD [Primary Care Provider] - 1-2 Weeks Prescriptions: Cefdinir 300 mg PO BID #10 capsule Home Medications: Ambulatory Orders Potassium Chloride [Micro-K] 10 meq PO DAILY 07/10/15 Folic Acid-Vitamin B6-Vitamin [Folbee 2.5-25-1 mg] 1 tab PO DAILY 12/01/16 Gabapentin 300 mg PO BID 12/01/16 Magnesium [Magnesium 250 mg] 1 tab PO DAILY 11/12/17 Rivaroxaban [Xarelto] 15 mg PO DAILY 11/12/17 Albuterol Sulfate Nebs [Proventil Nebs] 2.5 mg NEB Q4H PRN #30 vial 04/03/18 Nystatin Powder 1 gm TOP BID PRN #1 bttl 09/03/18 Albuterol Sulfate Nebs [Proventil Nebs] 2.5 mg INH BEDTIME 09/11/18 D3 Vitamin 50 mg PO DAILY 09/11/18 Triamterene/Hydrochloroth 37.5-25 mg 37 mg PO DAILY 09/11/18 Methimazole 5 mg PO DAILY #30 tab 09/14/18 hydrOXYzine HCl [Atarax] 25 mg PO TID PRN #30 tab 09/24/18 Aspirin [Aspirin Childrens] 81 mg PO 01/19/19 Atorvastatin Calcium [Lipitor] 10 mg PO 01/19/19 Bioflavonoid Products [Vitamin C] 1 chw PO 01/19/19 Cholecalciferol [Vitamin D-3] 2,000 unit PO 01/19/19 Clopidogrel Bisulfate [Plavix] 75 mg PO QD 01/19/19 Fluticasone Furoate-Vilanterol [Breo Ellipta 100-25 Mcg/INH] 01/19/19 Metoprolol Succinate [Metoprolol Succinate ER] 25 mg PO 01/19/19 Montelukast [Singulair] 10 mg PO 01/19/19 Prednisone 5 mg PO DAILY 01/19/19 Isosorbide Dinitrate 5 mg PO BID #30 tab 11/21/19 Cefdinir 300 mg PO BID #10 capsule 12/23/19
[2019-12-23 22:43] VITALS: BP 160/93; TEMP 98.1; O2SAT 97
== END 2019-12-23 22:30 | disposition home or self-care (01) ==
LOC: ER 19:50
DX: R41.0 Disorientation, unspecified (principal); N30.00 Acute cystitis without hematuria; E07.9 Disorder of thyroid, unspecified; K21.9 Gastro-esophageal reflux disease without esophagitis; R94.31 Abnormal electrocardiogram [ECG] [EKG]; Z85.528 Personal history of other malignant neoplasm of kidney; Z86.718 Personal history of other venous thrombosis and embolism; Z79.82 Long term (current) use of aspirin; Z79.02 Long term (current) use of antithrombotics/antiplatelets; Z79.899 Other long term (current) drug therapy
CPT/HCPCS: 80048; 80076; 81001; 83690; 84484; 85025; 87086; 93005; J0696; J7030; J7050

== ENCOUNTER → 2020-01-22 | Outpatient (CLI) | payer MEDICARE, OTHER | LOC: BFHH 15:34 | PROVIDERS: ATTEND Family Medicine | DX: N39.0 Urinary tract infection, site not specified (principal) ==

== ENCOUNTER → 2020-02-19 | Outpatient (CLI) | payer MEDICARE, OTHER | LOC: BFHH 13:03 | PROVIDERS: ATTEND Family Medicine | DX: N39.0 Urinary tract infection, site not specified (principal); Z87.440 Personal history of urinary (tract) infections ==

== ENCOUNTER → 2020-02-24 | Outpatient (CLI) | payer MEDICARE, OTHER | LOC: BFHH 13:48 | PROVIDERS: ATTEND Family Medicine | DX: N39.0 Urinary tract infection, site not specified (principal) ==

== ENCOUNTER → 2020-03-25 | Outpatient (CLI) | payer MEDICARE, OTHER | LOC: BFHH 13:21 | PROVIDERS: ATTEND Family Medicine | DX: N39.0 Urinary tract infection, site not specified (principal) ==

== ENCOUNTER → 2020-04-01 | Outpatient (CLI) | payer MEDICARE, OTHER | LOC: BFHH 15:34 | PROVIDERS: ATTEND Family Medicine | DX: N39.0 Urinary tract infection, site not specified (principal); Z87.440 Personal history of urinary (tract) infections ==

== ENCOUNTER 2020-04-16 14:42 | Emergency (ER) | payer MEDICARE, OTHER ==
--- NOTE | 2020-04-16 15:33 | RAD ---
EXAM: Chest,1 View CLINICAL HISTORY: ams COMPARISON STUDY: November 21, 2019 TECHNICAL: A single anteroposterior (AP) view of the chest was performed. FINDINGS: No consolidations, effusions, or edema. The heart size is not enlarged. AP portable technique causes magnification with some enlargement of the cardiac silhouette. Atherosclerotic changes are present. Coronary artery stents are present. There are severe degenerative changes of the left shoulder. IMPRESSION: NO ACUTE ABNORMALITY. Electronically signed by: Mario De La Cruz MD 04/16/2020 3:31 PM [facility]
--- NOTE | 2020-04-16 15:50 | CT ---
EXAM: Head CLINICAL HISTORY: confusion COMPARISON STUDY: CT head from October 21, 2019 TECHNICAL: Non-contrasted CT images of the brain were performed. FINDINGS: There is mild diffuse cerebral and cerebellar atrophy. There are mild periventricular white matter low-density changes suggesting microvascular disease. 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 There is no intracranial hemorrhage, mass, or mass effect. There are no imaging findings that would suggest an acute territorial infarction. The calvarium is intact. IMPRESSION: MILD ATROPHY AND MICROVASCULAR WHITE MATTER CHANGES WITHOUT CHANGES OF AN ACUTE INTRACRANIAL ABNORMALITY. ACUTE INFARCT MAY BE INAPPARENT ON A BACKGROUND OF MICROVASCULAR DISEASE. MRI CAN BE PERFORMED IF CLINICALLY INDICATED. This exam was performed according to our departmental dose-optimization program, which includes automated exposure control, adjustment of the mA and/or kV according to patient size and/or use of iterative reconstruction technique. Electronically signed by: Mario De La Cruz MD 04/16/2020 3:49 PM [facility]
[2020-04-16] MEDS ORDERED: SODIUM CHLORIDE 0.9% 500ML 500 ML IVS ONE (16:00)
--- NOTE | 2020-04-16 17:25 | ED.PDOC ---
History of Present Illness - General Chief Complaint: GI Problem Stated Complaint: nausea, vomiting Time Seen by Provider: 04/16/20 14:43 Information Source: Vital Signs reviewed, EMS notes reviewed, family, EMS, old records Exam Limitations: other - dementia - History of Present Illness Initial Comments: 89 yo F comes in via EMS with emesis. Per family last night threw up after dinner. At night had a 101 F, which resolved with two tylenol. This morning threw up her breakfast and morning medications. Per family, son, was recently dx with COVID. No cough. Patient is prone to UTI per family. Patient declines any pain. Review of Systems - Review of Systems Constitutional: States: fever EENTM: States: other - undereye redness, eye matting Respiratory: Denies: cough Cardiology: Denies: syncope Gastrointestinal/Abdominal: States: nausea, vomiting. Denies: diarrhea Skin: Denies: rash Neurological: Denies: seizure Endocrine: Denies: unexplained weight loss Hematologic/Lymphatic: Denies: easy bleeding Unable to Obtain Due To: dementia Past Medical History (General) - Patient Medical History Hx Seizures: No Hx Stroke: No Hx Dementia: Yes Hx Asthma: No Hx of COPD: No Hx Cardiac Disorders: Yes - Hx DVT Hx Congestive Heart Failure: No Hx Pacemaker: No Hx Hypertension: No Hx Thyroid Disease: Yes Hx Diabetes: No Hx Gastroesophageal Reflux: Yes Hx Renal Disease: No Hx Cancer: Yes - kidney Hx of HIV: No Hx Hepatitis C: No Hx MRSA: No - Vaccination History Hx Tetanus, Diphtheria Vaccination: No Hx Influenza Vaccination: Yes Hx Pneumococcal Vaccination: Yes - Social History Hx Tobacco Use: No Hx Chewing Tobacco Use: No Hx Alcohol Use: No Hx Substance Use: No Hx Substance Use Treatment: No Hx Depression: No Hx Physical Abuse: No Hx Emotional Abuse: No Hx Suspected Abuse: No - Female History Patient : No Family Medical History - Family History Mother Family History: No Known Living Status: Hx Cardiac Disease: Yes - parents Hx Family Cancer: Yes - esophagus-brother Father Family History: No Known Living Status: Hx Cardiac Disease: Yes Physical Exam - Physical Exam General Appearance: Alert, Comfortable, No apparent distress, Well Developed, Well Groomed, Well Hydrated, Well Nourished Eyes, Ears, Nose, Throat Exam: PERRL/EOMI, normal ENT inspection Neck: non-tender, full range of motion, supple, normal inspection Respiratory: chest non-tender, lungs clear, normal breath sounds, no respiratory distress, no accessory muscle use Cardiovascular/Chest: normal peripheral pulses, regular rate, rhythm, no edema, no gallop, no JVD, no murmur Peripheral Pulses: 2+ Gastrointestinal/Abdominal: normal bowel sounds, non tender, soft, no organomegaly, no pulsatile mass Rectal Exam: deferred Back Exam: normal inspection, no CVA tenderness Extremity: normal range of motion, normal inspection Neurologic: no motor/sensory deficits, alert, normal mood/affect Skin Exam: normal color, warm/dry Progress - Progress Progress: patient given 500 ml bolus and 4 mg zofran. partial ddx: gastroenteritis, ICH, pneumonia, uti, pancreatitis, gallstones, others considered. 04/16/20 17:37 delay in dispo, pending RN to get cath UA. patient actively rubbing her eyes, due to patients thin skin I believe this is the redness that the daughter is seeing. May have some allergies or viral syndrome. patient would not tolerate cath UA. Attempted bedside commode, but had bm. She is PO tolerant. Discuss with family, since patient is prone to UTI, I suggest we treat for UTI. The data reviewed when caring for this patient included: nurse notes, prior records, etc. The history and assessments from nurses notes were reviewed and considered, and the patient's home medication list was also reviewed and considered. My assessment and the results of testing completed here in the ED were discussed with the patient/family. All questions were answered, and they express understanding of my assessment and the plan. They have been instructed to return if their symptoms worsen, and have been asked to follow up with their primary care physician to recheck today's presenting complaint. Strict return precautions given. I have reviewed medication, benefits, alternatives and side effects. Nandini Pierce DO #[id number] 04/16/20 18:22 04/16/20 20:09 04/16/20 20:09 - Results/Orders Results/Orders: 04/16/20 14:54 UA [URINALYSIS] Stat 04/16/20 15:00 EKG STAT Laboratory Results WBC 8.3 K/mm3 (4.8-10.8) 04/16/20 15:15 RBC 4.83 M/mm3 (4.20-5.40) 04/16/20 15:15 Hgb 14.8 gm/dL (12.0-16.0) 04/16/20 15:15 Hct 45.4 % (36.0-47.0) 04/16/20 15:15 MCV 94.0 fl (81.0-99.0) 04/16/20 15:15 MCH 30.6 pg (27.0-31.0) 04/16/20 15:15 MCHC 32.5 g/dL (33.0-37.0) L 04/16/20 15:15 RDW 14.5 % (11.5-14.5) 04/16/20 15:15 Plt Count 307 K/mm3 (130-400) 04/16/20 15:15 MPV 7.9 fl (7.40-10.4) 04/16/20 15:15 Absolute Neuts (auto) 5.60 K/uL (1.8-6.8) 04/16/20 15:15 Absolute Lymphs (auto) 1.60 K/uL (1.0-3.4) 04/16/20 15:15 Absolute Monos (auto) 0.80 K/uL (0.2-0.8) 04/16/20 15:15 Absolute Eos (auto) 0.30 K/uL (0.0-0.4) 04/16/20 15:15 Absolute Basos (auto) 0.10 K/uL (0.0-0.1) 04/16/20 15:15 Neutrophils % 67.4 % (42.0-78.0) 04/16/20 15:15 Lymphocytes % 19.6 % (20.0-50.0) L 04/16/20 15:15 Monocytes % 9.1 % (2.0-9.0) H 04/16/20 15:15 Eosinophils % 3.2 % (1.0-5.0) 04/16/20 15:15 Basophils % 0.7 % (0.0-2.0) 04/16/20 15:15 PT 10.2 SECONDS (9.0-10.9) 04/16/20 15:15 INR 1.03 (0.9-1.15) 04/16/20 15:15 PTT (SP) 22.9 SECONDS (21.8-31.6) 04/16/20 15:15 Sodium 142 mmol/L (135-145) 04/16/20 15:15 Potassium 4.2 mmol/L (3.6-5.0) 04/16/20 15:15 Chloride 103 mmol/L (101-111) 04/16/20 15:15 Carbon Dioxide 24 mmol/L (21-31) 04/16/20 15:15 Anion Gap 19.2 (12-18) H 04/16/20 15:15 BUN 31 mg/dL (7-18) H 04/16/20 15:15 Creatinine 1.07 mg/dL (0.6-1.3) 04/16/20 15:15 BUN/Creatinine Ratio 29.0 (10-20) H 04/16/20 15:15 Random Glucose 129 mg/dL (70-105) H 04/16/20 15:15 Serum Osmolality 291.4 mOsm/L (275-295) 04/16/20 15:15 Calcium 10.9 mg/dL (8.4-10.2) H 04/16/20 15:15 Total Bilirubin 0.8 mg/dL (0.2-1.0) 04/16/20 15:15 AST 23 IU/L (10-42) 04/16/20 15:15 ALT 20 IU/L (10-60) 04/16/20 15:15 Alkaline Phosphatase 62 IU/L (42-121) 04/16/20 15:15 Troponin I < 0.02 ng/mL (0.01-0.05) 04/16/20 15:15 Serum Total Protein 8.3 gm/dL (6.4-8.2) H 04/16/20 15:15 Albumin 4.3 g/dl (3.2-5.5) 04/16/20 15:15 Globulin 4.0 gm/dL (2.3-3.5) H 04/16/20 15:15 Albumin/Globulin Ratio 1.1 (1.1-1.9) 04/16/20 15:15 Lipase 40 U/L (22-51) 04/16/20 15:15 - EKG/XRAY/CT EKG: Sinus, Changed from - Frequent PVC Comments: PVC XRAY: chest - no infiltrate, no acute abnormality noted CT: head: no ICH Departure - Departure Clinical Impression: Weakness Nausea and vomiting Qualifiers: Vomiting type: unspecified Vomiting Intractability: non-intractable Qualified Code(s): R11.2 - Nausea with vomiting, unspecified Time of Disposition: 19:13 Disposition: Discharge to Home or Self Care Departure Forms: ED Discharge - Pt. Copy, Patient Portal Self Enrollment Instructions: Nausea and Vomiting, Adult (DC) Diet: resume usual diet Activity: increase activity as tolerated Referrals: Dwight Meredith MD [Primary Care Provider] - 1-2 Days Prescriptions: Nitrofurantoin Monohyd Macro [Macrobid] 100 mg PO BID 5 Days #10 cap Ondansetron HCl [Zofran] 4 mg PO TID PRN #15 tab PRN Reason: Vomiting Home Medications: Ambulatory Orders Potassium Chloride [Micro-K] 10 meq PO DAILY 07/10/15 Folic Acid-Vitamin B6-Vitamin [Folbee 2.5-25-1 mg] 1 tab PO DAILY 12/01/16 Gabapentin 300 mg PO BID 12/01/16 Magnesium [Magnesium 250 mg] 1 tab PO DAILY 11/12/17 Rivaroxaban [Xarelto] 15 mg PO DAILY 11/12/17 Albuterol Sulfate Nebs [Proventil Nebs] 2.5 mg NEB Q4H PRN #30 vial 04/03/18 Nystatin Powder 1 gm TOP BID PRN #1 bttl 09/03/18 Albuterol Sulfate Nebs [Proventil Nebs] 2.5 mg INH BEDTIME 09/11/18 D3 Vitamin 50 mg PO DAILY 09/11/18 Triamterene/Hydrochloroth 37.5-25 mg 37 mg PO DAILY 09/11/18 Methimazole 5 mg PO DAILY #30 tab 09/14/18 hydrOXYzine HCl [Atarax] 25 mg PO TID PRN #30 tab 09/24/18 Aspirin [Aspirin Childrens] 81 mg PO 01/19/19 Atorvastatin Calcium [Lipitor] 10 mg PO 01/19/19 Bioflavonoid Products [Vitamin C] 1 chw PO 01/19/19 Cholecalciferol [Vitamin D-3] 2,000 unit PO 01/19/19 Clopidogrel Bisulfate [Plavix] 75 mg PO QD 01/19/19 Fluticasone Furoate-Vilanterol [Breo Ellipta 100-25 Mcg/INH] 01/19/19 Metoprolol Succinate [Metoprolol Succinate ER] 25 mg PO 01/19/19 Montelukast [Singulair] 10 mg PO 01/19/19 Prednisone 5 mg PO DAILY 01/19/19 Isosorbide Dinitrate 5 mg PO BID #30 tab 11/21/19 Cefdinir 300 mg PO BID #10 capsule 12/23/19 Nitrofurantoin Monohyd Macro [Macrobid] 100 mg PO BID 5 Days #10 cap 04/16/20 Ondansetron HCl [Zofran] 4 mg PO TID PRN #15 tab 04/16/20
[2020-04-16] MEDS ORDERED: ONDANSETRON INJ 4 MG/2 ML VIAL IV ONE (17:38)
[2020-04-16] MEDS ORDERED: NITROFURANTOIN MONOHYDRATE MAC 100 MG CAP PO ONE (19:14)
[2020-04-16] MEDS ORDERED: ONDANSETRON ODT 8 MG TAB ONE (19:33)
[2020-04-16] MEDS ORDERED: ONDANSETRON ODT 8 MG TAB SL ONE (19:56)
[2020-04-16 20:29] VITALS: O2SAT 96
[2020-04-16 20:32] VITALS: BP 155/96; TEMP 98.8
== END 2020-04-16 19:45 | disposition home or self-care (01) ==
LOC: ER 14:42
DX: R11.2 Nausea with vomiting, unspecified (principal); R53.1 Weakness; I49.3 Ventricular premature depolarization; E07.9 Disorder of thyroid, unspecified; K21.9 Gastro-esophageal reflux disease without esophagitis; I51.9 Heart disease, unspecified; F03.90 Unspecified dementia, unspecified severity, without behavioral disturbance, psychotic disturbance, mood disturbance, and anxiety; Z86.718 Personal history of other venous thrombosis and embolism; Z20.822 Contact with and (suspected) exposure to COVID-19; Z85.528 Personal history of other malignant neoplasm of kidney; Z79.01 Long term (current) use of anticoagulants; Z79.82 Long term (current) use of aspirin; Z79.899 Other long term (current) drug therapy
CPT/HCPCS: 36415; 70450; 71045; 80053; 83690; 84484; 85025; 85610; 85730; 87502; 87635; 93005; J2405; J7040